=== PATIENT | male | born 1945 | race Caucasian/White ===

== ENCOUNTER 2019-10-26 08:03 | Outpatient (CLI) | payer OTHER, SELFPAY ==
--- NOTE | 2019-10-26 10:56 | PFTS_ITS ---
Date of Study:10/26/2019 Date of Dictation: MECHANICS: Forced vital capacity (FVC) is normal. Forced expiratory volume in one second (FEV1) is reduced. FEV1/FVC is reduced. FLOW VOLUME LOOP: Reduced flow at all lung volumes with scooping. LUNG VOLUMES: Not performed DIFFUSING CAPACITY FOR CARBON MONOXIDE: Not performed. INTERPRETATION: The pulmonary function tests are consistent with moderate airflow obstruction. There is no significant postbronchodilator response. MTDD
== END 2019-10-26 08:04 | disposition home or self-care (01) ==
PROVIDERS: Family Provider Family Medicine; Visit Provider Orthopaedic Surgery
DX: C34.90 Malignant neoplasm of unspecified part of unspecified bronchus or lung (principal); F17.210 Nicotine dependence, cigarettes, uncomplicated
CPT/HCPCS: 94060; J7611

== ENCOUNTER 2020-08-17 06:45 | Inpatient (IN) | payer OTHER, MEDICARE, SELFPAY ==
[2020-08-17] VITALS (12 sets, daily range): BP systolic 115–149; BP diastolic 61–91; PULSE 62–95; RESP 17–34; TEMP 36.3–38.9; O2SAT 90–97; BMI 24.6
--- NOTE | 2020-08-17 07:17 | XRR_ITS ---
PROCEDURE INFORMATION: Exam: XR Chest, 1 View Exam date and time: 08/17/2020 7:24 AM Age: 74 years old Clinical indication: Injury or trauma; Fall; Cough and shortness of breath; Blunt trauma (contusions or hematomas); Additional info: Dyspnea/cough TECHNIQUE: Imaging protocol: XR of the chest Views: 1 view. COMPARISON: No relevant prior studies available. FINDINGS: Lungs: Emphysematous change, interstitial disease, and mild airspace disease. Pleural space: Questionable small pleural effusions. Heart/Mediastinum: No cardiomegaly. Diaphragm: Asymmetric elevation of the right hemidiaphragm. Bones/joints: Osteopenia and degenerative change. XR/XR chest 1V portable [id number] IMPRESSION: Emphysematous change, interstitial disease, and mild airspace disease.
--- NOTE | 2020-08-17 07:20 | CT_ITS ---
WS: [id number] CT HEAD TECHNIQUE: Noncontrast CT of the head obtained from the skullbase to the vertex. CLINICAL INFORMATION: weakness COMPARISON: None. DLP: 733.[address] scans at [facility] use at least one of these dose optimization techniques: automat ed exposure control; mA and/or kV adjustment per patient size (includes targeted exams where dose is matched to clinical indication); or iterative reconstruction. FINDINGS: No evidence of intracranial hemorrhage or mass effect. Ventricular system and basal cisterns are goodwin nt. Mild small vessel changes with mild parenchymal volume loss. No extra-axial fluid collections. No evidence of mass or mass effect. Normal diggs-white differentiation. Paranasal sinuses and mastoid air cells are well aerated. .Normal visualized soft tissues. CT/CT head wo con* [id number] IMPRESSION: 1. No evidence of intracranial hemorrhage or mass effect. 2. Mild small vessel changes. Mild parenchymal volume loss. 3. No acute intracranial findings.
--- NOTE | 2020-08-17 07:22 | W.ED.FALL ---
HPI - Fall General: Chief Complaint: Fall Stated Complaint: Fall, Weakness Time Seen by Provider: 08/17/20 07:02 History of Present Illness: HPI Narrative: 74-year-old male presents to the emergency room after becoming ill overnight and progressively worsening to the point where this morning he was trying to get out of bed and was too weak his legs. He denies any difficulty speaking or swallowing. He denies any chest pain. No nausea vomiting or diarrhea. MD complaint: fall Onset (ago): hour(s) Fall from: standing Fall witnessed: no Place fall occurred: home Loss of consciousness: None Prolonged down time: yes Symptoms prior to fall: lightheadedness and dizziness Severity: mild Associated symptoms-after fall: Denies abdominal pain or chest pain Review of Systems Const: Denies: fever(s), chills, body aches, change in appetite, fatigue or malaise ENMT: Denies: throat pain, ear or mastoid pain, nasal discharge or nasal congestion Card: Denies: chest pain, edema, dyspnea on exertion or orthopnea Resp: Denies: dyspnea, productive cough or non-productive cough GI: Denies: abdominal pain, nausea, vomiting, hematemesis, coffee ground emesis, diarrhea, constipation, bloating, hematochezia or melena : Denies: flank pain, dysuria, urinary frequency or urinary urgency Skin/Breast: Denies: rash or pruritus [facility] PFSH: Medical History (Updated 08/17/20 @ 10:21 by Christiano Olivares DO) COPD (chronic obstructive pulmonary disease) Physical Exam Const: COMMON NORMALS: no acute distress GENERAL APPEARANCE: cooperative and comfortable ORIENTATION/CONSCIOUSNESS: Yes awake, Yes oriented to person, Yes oriented to place and Yes oriented to time Resp: AUSCULTATION: rhonchi, wheezes and diminished lung sounds Cardio: COMMON NORMALS: regular rate, regular rhythm and No murmurs present (Cardio) RATE: regular rate RHYTHM: regular rhythm Extremity: COMMON NORMALS: normal to inspection, capillary refill normal, no clubbing, cyanosis or edema and no calf tenderness Neuro: SENSORIUM/ORIENTATION: Yes oriented to person, Yes oriented to place and Yes oriented to time Skin: COMMON NORMALS: no rashes or lesions noted GENERAL SKIN EXAM: no rashes or lesions noted Course Vital Signs: Vital signs: Vital Signs Temperature 102.0 F H 08/17/20 06:52 Pulse Rate 95 08/17/20 06:52 Respiratory Rate 34 H 08/17/20 06:52 Blood Pressure 134/75 08/17/20 06:52 Pulse Oximetry 91 08/17/20 06:52 MDM - Fall MDM Narrative: Medical decision making narrative: Patient is Covid positive suspect he also has an underlying bacterial lung pneumonia we will treat with antibiotics as well as remdesivir and dexamethasone he is stable on supplemental oxygen [facility] Rapp orders written Lab Data: Labs: Lab Results 08/17/20 08/17/20 08/17/20 Range/Units 07:00 07:00 07:00 WBC 7.2 (4.0-10.0) 10^3/ uL RBC 3.90 L (4.1-5.3) 10^6/u L Hgb 13.1 (11.7-16.6) g/dL Hct 38.9 L (42.0-52.0) % MCV 99.7 H (80-94) fL MCH 33.6 (28.0-34.0) pg MCHC 33.7 (30.0-36.0) g/dL RDW 14.2 (12.1-15.1) % Plt Count 122 L (130-400) 10^3/c mm MPV 11.5 H (7.4-10.4) fL Neut % (Auto) 75.7 % Lymph % (Auto) 11.0 % [place] % (Auto) 12.2 % Eos % (Auto) 0.0 % Baso % (Auto) 0.3 % Neut # (Auto) 5.42 (1.8-7.7) 10^3/u L Lymph # (Auto) 0.8 (0.8-4.8) 10^3/u L [place] # (Auto) 0.9 (0.2-0.9) 10^3/u L Eos # (Auto) 0.0 (0.0-0.8) 10^3/u L Baso # (Auto) 0.0 (0.0-0.1) 10^3/u L Nucleated RBC % (a uto) 0 % Nucleated RBCs # 0.0 /100WBC D-Dimer 3.44 H (0-0.59) ug/mIFE U Specimen Type Sample Site ABG pH (7.35-7.45) ABG pCO2 (35-45) mmHg ABG pO2 (80.0-100.0) mmH g ABG HCO3 (22-26) mmol/L ABG O2 Saturation ABG Base Excess (-2.0-2.0) mmol/ L Bryon Test A-a O2 Gradient (5-10) mmHg Hematocrit (42-52) % Hgb O2 Saturation (95-100) % Carboxyhemoglobin (0.4-20.1) %THgb Methemoglobin (0.4-1.5) % Total Hemoglobin (14-18) g/dL Ionized Calcium (1.1-1.4) mmol/L O2 Delivery Device O2 Liters/Min % FiO2 % Liquor Grinding [employer] Operator ID Sodium 134 L (136-145) mmol/L Potassium 3.8 (3.5-5.1) mmol/L Chloride 100 (98-107) mmol/L Carbon Dioxide 22 (22-29) mmol/L Anion Gap 15.8 (5-19) BUN 16 (8-23) mg/dL Creatinine 1.3 H (0.7-1.2) mg/dL GFR Calculation Not Reportable Glucose 103 (65-115) mg/dL Calculated Osmolal ity 279 L (285-295) mOsm/k g Lactic Acid (0.5-2.2) mmol/L Calcium 8.5 (8.5-10.5) mg/dL Total Bilirubin 0.5 (0.15-1.2) mg/dL AST 19 (0-40) U/L ALT 11 (0-41) U/L Alkaline Phosphata se 66 (40-130) IU/L Creatine Kinase 88 (39-308) U/L C-Reactive Protein 116.9 H (0.0-4.9) mg/L Total Protein 6.9 (6.6-8.7) g/dL Albumin 3.6 (3.5-5.2) g/dL Globulin 3.3 (1.3-4.6) g/dL SARS-CoV-2 Ag (Rap id) (Negative) 08/17/20 08/17/20 08/17/20 Range/Units 07:00 07:18 08:27 WBC (4.0-10.0) 10^3/ uL RBC (4.1-5.3) 10^6/u L Hgb (11.7-16.6) g/dL Hct (42.0-52.0) % MCV (80-94) fL MCH (28.0-34.0) pg MCHC (30.0-36.0) g/dL RDW (12.1-15.1) % Plt Count (130-400) 10^3/c mm MPV (7.4-10.4) fL Neut % (Auto) % Lymph % (Auto) % [place] % (Auto) % Eos % (Auto) % Baso % (Auto) % Neut # (Auto) (1.8-7.7) 10^3/u L Lymph # (Auto) (0.8-4.8) 10^3/u L [place] # (Auto) (0.2-0.9) 10^3/u L Eos # (Auto) (0.0-0.8) 10^3/u L Baso # (Auto) (0.0-0.1) 10^3/u L Nucleated RBC % (a uto) % Nucleated RBCs # /100WBC D-Dimer (0-0.59) ug/mIFE U Specimen Type Arterial Sample Site Brachial, left ABG pH 7.48 H (7.35-7.45) ABG pCO2 33.5 L (35-45) mmHg ABG pO2 67.2 L (80.0-100.0) mmH g ABG HCO3 24.8 (22-26) mmol/L ABG O2 Saturation 95.2 ABG Base Excess 1.7 (-2.0-2.0) mmol/ L Bryon Test Pos A-a O2 Gradient 15.4 H (5-10) mmHg Hematocrit 38.3 L (42-52) % Hgb O2 Saturation 93.3 L (95-100) % Carboxyhemoglobin 1.4 (0.4-20.1) %THgb Methemoglobin 0.7 (0.4-1.5) % Total Hemoglobin 12.5 L (14-18) g/dL Ionized Calcium 1.2 (1.1-1.4) mmol/L O2 Delivery Device Nc O2 Liters/Min 3.0 % FiO2 32.0 % Liquor Grinding [employer] Operator ID [place] Sodium 135.0 (136-145) mmol/L Potassium 3.4 L (3.5-5.1) mmol/L Chloride (98-107) mmol/L Carbon Dioxide (22-29) mmol/L Anion Gap (5-19) BUN (8-23) mg/dL Creatinine (0.7-1.2) mg/dL GFR Calculation Glucose 94.0 (65-115) mg/dL Calculated Osmolal ity (285-295) mOsm/k g Lactic Acid 1.1 (0.5-2.2) mmol/L Calcium (8.5-10.5) mg/dL Total Bilirubin (0.15-1.2) mg/dL AST (0-40) U/L ALT (0-41) U/L Alkaline Phosphata se (40-130) IU/L Creatine Kinase (39-308) U/L C-Reactive Protein (0.0-4.9) mg/L Total Protein (6.6-8.7) g/dL Albumin (3.5-5.2) g/dL Globulin (1.3-4.6) g/dL SARS-CoV-2 Ag (Rap id) Positive H (Negative) Discharge Plan Discharge Patient Disposition: Admitted As Inpatient Clinical Impression: COVID-19, Bacterial pneumonia, Hypoxemia Condition: Stable Referrals: Kvng Mirza MD [Primary Care Provider] - Coding Level of Care Code ED Supervisor Packing for Trae San
[2020-08-17 07:52] LABS: Basophils % 0.3 %; Hematocrit 38.9 % (42.0-52.0); Hemoglobin 13.1 g/dL (11.7-16.6); Lymphocytes # 0.8 10^3/uL (0.8-4.8); Mean Corpuscular HGB Conc 33.7 g/dL (30.0-36.0); Mean Corpuscular Hemoglobin 33.6 pg (28.0-34.0); Mean Corpuscular Volume 99.7 fL (80-94); Mean Platelet Volume 11.5 fL (7.4-10.4); Monocytes # 0.9 10^3/uL (0.2-0.9); Monocytes % 12.2 %; Neutrophils # 5.42 10^3/uL (1.8-7.7); Neutrophils % 75.7 %; Nucleated Red Blood Cells % 0 %; Platelet Count 122 10^3/cmm (130-400); Red Cell Distribution Width 14.2 % (12.1-15.1); White Blood Count 7.2 10^3/uL (4.0-10.0)
[2020-08-17 08:03] LABS: Alanine Aminotransferase 11 U/L (0-41); Albumin Level 3.6 g/dL (3.5-5.2); Alkaline Phosphatase 66 IU/L (40-130); Blood Urea Nitrogen 16 mg/dL (8-23); C Reactive Protein 116.9 mg/L (0.0-4.9); Calcium 8.5 mg/dL (8.5-10.5); Carbon Dioxide 22 mmol/L (22-29); Chloride 100 mmol/L (98-107); Creatine Phosphokinase 88 U/L (39-308); Globulin 3.3 g/dL (1.3-4.6); Glucose 103 mg/dL (65-115); Osmolality Calculated 279 mOsm/kg (285-295); Sodium 134 mmol/L (136-145); Total Bilirubin 0.5 mg/dL (0.15-1.2); Total Protein 6.9 g/dL (6.6-8.7)
[2020-08-17] MEDS: sodium chloride 0.9% 500 ML 999 ML IV (08:03)
[2020-08-17 08:04] LABS: D Dimer 3.44 ug/mIFEU (0-0.59); Lactic Sepsis W/Reflex 1.1 mmol/L (0.5-2.2)
[2020-08-17 08:06] LABS: Anion Gap 15.8 (5-19); Aspartate Amino Transferase 19 U/L (0-40); Potassium 3.8 mmol/L (3.5-5.1)
[2020-08-17 08:40] LABS: ABG PCO2 33.5 mmHg (35-45); ABG PH Result 7.48 (7.35-7.45); Alveolar-Arterial Oxygen Gradi 15.4 mmHg (5-10); Arterial Blood Gas Hematocrit 38.3 % (42-52); Base Excess ABG 1.7 mmol/L (-2.0-2.0); Blood Gas Allen Test Pos; Blood Gas Operator Identificat MONRO; Blood Gas Sample Site Brachial, left; Blood Gas Sample Type Arterial; Carboxyhemoglobin 1.4 %THgb (0.4-20.1); HCO3 ABG 24.8 mmol/L (22-26); HGB O2 Sat 93.3 % (95-100); Ionized Calcium Level - ABG 1.2 mmol/L (1.1-1.4); Methemoglobin 0.7 % (0.4-1.5); Oxygen Device NC; Oxygen Saturation ABG 95.2; PO2 ABG 67.2 mmHg (80.0-100.0); Potassium Level - ABG 3.4 mmol/L (3.5-5.0); Total Hemoglobin 12.5 g/dL (14-18)
[2020-08-17 08:49] LABS: SARS Covid-2 Antigen Positive (Negative)
--- NOTE | 2020-08-17 08:50 | CT_ITS ---
WS: [id number] CTA OF THE CHEST WITH PULMONARY EMBOLISM PROTOCOL TECHNIQUE: High-resolution contrast enhanced CTA of the chest with coronal and sagittal reformatted i mages with pulmonary embolism protocol. MIP images are also reviewed. CLINICAL INFORMATION: elevated D dimer COMPARISON: None. DLP: 564.[address] scans at [facility] use at least one of these dose optimization techniques: automat ed exposure control; mA and/or kV adjustment per patient size (includes targeted exams where dose is matched to clinical indication); or iterative reconstruction. FINDINGS: Proximal main pulmonary arteries are normal. Normal segmental and subsegmental pulmonary arteries. No evidence of pulmonary embolus. Normal caliber thoracic aorta. No mediastinal or hilar lymphadenopath y. No axillary lymphadenopathy. Moderate chronic emphysematous changes. Slightly nodular opacity in the right upper lobe measuring 8 mm. Subsegmental atelectasis in the lower lobes. Partial airspace consolidation left lower lobe poste riorly. Recommend correlation for pneumonia. Mild thoracic kyphosis. Adrenal glands are normal. CT/CT angio chest PE protcl [id number] IMPRESSION: 1. No evidence of pulmonary embolus. 2. Partial airspace consolidation left lower lobe consistent with pneumonia 3. Advanced chronic emphysematous changes. 4. Nodular opacity right upper lobe laterally measuring 8mm. Recommend 3-6 mon th interval follow-up chest CT.
[2020-08-17] MEDS: iodixanol 320 mg/mL 100mL Btl IV (09:15)
[2020-08-17] MEDS: levofloxacin-dextrose 5 % 750 MG/150 ML PREMIX 100 MG IV (09:22)
[2020-08-17] MEDS: dexamethasone 4 mg/mL INJ 6 MG IVP (09:23)
[2020-08-17] MEDS: remdesivir 200 MG in sodium chloride 0.9% (100 ml) 100 ML 100 MG IV (09:24)
[2020-08-17 11:19] LABS: Urine Appearance Hazy (CLEAR); Urine Color Dark Yellow (Yellow); pH Urine 5 (5-7)
[2020-08-17 11:20] LABS: Add Urine Microscopic? YES; Bilirubin Urine 1+ (Negative); Blood Urine 3+ (Negative); Glucose Urine UA Norm (Normal); Ketones Urine 1+ (Negative); Leukocyte Esterase Urine Negative (Negative); Nitrate Urine Negative (Negative); Protein Urine 1+ (Negative); Urobilinogen Urine 1 mg/dL (Negative)
[2020-08-17 11:21] LABS: Add Urine Culture? No; Amorphous Sediment Urine 2+ /hpf; Bacteria Urine TRACE /hpf; Mucus Urine 1+ /hpf; RBC Urine 0-4 /hpf (0-2)
--- NOTE | 2020-08-17 16:19 | PM.HP ---
Providers/Chief Complaint Admitting Physician: Mat Knutson MD Primary Care Provider: Kvng Mirza MD Chief Complaint: Fall, Weakness History of Present Illness Will Loza is a 74 year old male who presented to the emergency department with severe weakness. He had been coughing some. He denied any shortness of breath but was hypoxic on presentation to the ER. He had had no vomiting or diarrhea. He reports he feels very good on the oxygen. He had had some chills at home but not not any documented fever. Fever was noted in the ER of 102 ?F. During my interview patient seems to be a poor historian and may have some early dementia Review of Systems General: Reports: 10 or more systems reviewed and unremarkable except in HPI and below Const: Reports: fever(s) and body aches Eyes: Denies: change in vision ENMT: Denies: throat pain Card: Denies: chest pain Resp: Reports: dyspnea and non-productive cough GI: Denies: abdominal pain : Denies: flank pain Musc: Denies: neck pain Skin/Breast: Denies: rash Neuro: Denies: headache(s) Psych: Denies: anxiety Endo: Denies: polyuria Young/Lymph: Denies: easy bruising All/Imm: Denies: urticaria Medications/Allergies Home Medications Medication Instructions Recorded Confirmed Last Taken Type apixaban [Eliquis] 5 mg PO BID@08/17/20 08/17/20 08/16/20 History budesonide-formoterol [Symbicort] 2 puff INHALATION BID@08/17/20 08/17/20 08/16/20 History folic acid 1 mg PO DAILY@08/17/20 08/17/20 08/16/20 History methotrexate sodium 25 mg IM Q7D 08/17/20 08/17/20 Unknown History propranolol 20 mg PO BID@08/17/20 08/17/20 08/16/20 History tiotropium bromide [Spiriva 2 puff INHALATION DAILY@08/17/20 08/17/20 08/16/20 History Respimat] vitamins A,C,[id number]-rqtu-ynhrdi 1 cap PO DAILY@08/17/20 08/17/20 08/16/20 History [Vision Formula (S-V-I-Zn-kasia)] Allergies Allergy/AdvReac Type Severity Reaction Status Date / Time No Known Allergies Allergy Unverified 08/17/20 12:43 PFSH Acute PFSH: Medical History (Updated 08/17/20 @ 16:25 by Mat Knutson MD) Anticoagulation adequate COPD (chronic obstructive pulmonary disease) Hypertension Rheumatoid arthritis Family History (Updated 08/17/20 @ 16:25 by Mat Knutson MD) Other CAD (coronary artery disease) Social History (Updated 08/17/20 @ 16:25 by Mat Knutson MD) Smoking and tobacco status: former smoker Alcohol intake: never Supplemental PFSH Information: Denies any personal history of coronary disease, stroke. Vitals/I&O/Wt Last Vital Signs Temp 102.0 F H 08/17/20 06:52 Pulse 75 08/17/20 11:18 Resp 20 H 08/17/20 11:18 BP 118/61 08/17/20 11:18 Pulse Ox 96 08/17/20 11:18 Weight last 48 hrs Weight 73.482 kg Physical Exam Narrative: EXAM NARRATIVE: General exam is a white male in no apparent distress HEENT: Pupils equally round. Oropharynx clear. Neck is supple no lymphadenopathy or thyromegaly Cardiovascular regular rate and rhythm without murmur, no S3 or S4 Lungs few coarse breath sounds bilaterally. No wheezing. Abdomen is soft, positive bowel sounds. No obvious organomegaly was deferred Extremities no cyanosis clubbing or edema, cap refill brisk Skin no rash Neuro no focal deficits. Some memory deficits suggesting possibly early dementia. Data : 08/17/20 07:00 08/17/20 07:00 Micro: Microbiology 08/17/20 11:14 Blood Culture - Preliminary Blood SPECIMEN COLLECTED 08/17/20 09:10 Blood Culture - Preliminary Blood SPECIMEN COLLECTED Other data: Dimer 3.44 ABG demonstrates pH 7.48, PCO2 33, PO2 67 this was on 3 L per nasal cannula LFTs are normal. CRP 116. CK 88. Urinalysis demonstrates 0-4 reds, negative leukocyte Estrace. Rapid Covid is positive CTA demonstrates no pulmonary embolism, emphysema, nodular opacity right upper lobe that will require follow-up in 3 to 6 months, consolidation left base Head CT negative Chest x-ray bibasilar infiltrate reviewed by me, COPD A&P Assessment and plan (1) COVID-19: Remdesivir Dexamethasone Combivent Incentive spirometry Check inflammatory markers tomorrow Status: Acute (2) Bacterial pneumonia: We will continue Levaquin Status: Acute (3) Hypoxemia: Oxygen as needed Status: Acute (4) COPD (chronic obstructive pulmonary disease): Pulmonary toilet. No evidence of exacerbation currently Status: Acute Additional A&P Information On anticoagulation with Eliquis. Presumably for DVT or A. fib in the past. Will check EKG. Will investigate with family History of rheumatoid arthritis. Hold methotrexate Full code Eliquis will suffice for DVT prophylaxis Attestations Medical Necessity Statement*: Will need greater than 2 midnight stay for evaluation and treatment of pneumonia, Covid Time Spent in Patient Care: Greater than 35 minutes Coding Level of Care Code Acute Implementation Director for Chg Fwd Diagnoses COVID-19 U07.1 Bacterial pneumonia J15.9 Hypoxemia R09.02 COPD (chronic obstructive pulmonary disease) J44.9
[2020-08-17] MEDS: D5-NS 0.45% + KCL 20 mEq 20 MEQ/1,000 ML BAG 75 MEQ IV (17:57)
[2020-08-17] MEDS: apixaban 5 mg Tablet PO (21:34)
[2020-08-17] MEDS: propranolol 20 mg Tablet PO (21:34)
[2020-08-18] VITALS (15 sets, daily range): BP systolic 118–169; BP diastolic 72–87; PULSE 50–92; RESP 16–24; TEMP 36.4–36.5; O2SAT 96–99
[2020-08-18 06:05] LABS: Hematocrit 37.6 % (42.0-52.0); Hemoglobin 12.5 g/dL (11.7-16.6); Lymphocytes # 0.8 10^3/uL (0.8-4.8); Lymphocytes % 10.8 %; Mean Corpuscular HGB Conc 33.2 g/dL (30.0-36.0); Mean Corpuscular Hemoglobin 33.2 pg (28.0-34.0); Mean Platelet Volume 10.5 fL (7.4-10.4); Monocytes # 0.5 10^3/uL (0.2-0.9); Monocytes % 7.3 %; Neutrophils # 6.04 10^3/uL (1.8-7.7); Neutrophils % 81.6 %; Nucleated Red Blood Cells % 0 %; Platelet Count 130 10^3/cmm (130-400); Red Blood Count 3.76 10^6/uL (4.1-5.3); White Blood Count 7.4 10^3/uL (4.0-10.0)
[2020-08-18 06:28] LABS: Alanine Aminotransferase 13 U/L (0-41); Albumin Level 3.4 g/dL (3.5-5.2); Alkaline Phosphatase 63 IU/L (40-130); Anion Gap 11.4 (5-19); Aspartate Amino Transferase 23 U/L (0-40); Blood Urea Nitrogen 18 mg/dL (8-23); Calcium 8.6 mg/dL (8.5-10.5); Carbon Dioxide 28 mmol/L (22-29); Chloride 103 mmol/L (98-107); Globulin 2.6 g/dL (1.3-4.6); Glucose 140 mg/dL (65-115); Osmolality Calculated 290 mOsm/kg (285-295); Potassium 4.4 mmol/L (3.5-5.1); Sodium 138 mmol/L (136-145); Total Bilirubin 0.2 mg/dL (0.15-1.2)
[2020-08-18 06:35] LABS: C Reactive Protein 117.2 mg/L (0.0-4.9); Magnesium 2.2 mg/dL (1.7-2.3); Thyroid Stimulating Hormone 1.43 uIU/mL (0.27-4.20)
[2020-08-18 06:46] LABS: D Dimer 2.96 ug/mIFEU (0-0.59)
[2020-08-18] MEDS: D5-NS 0.45% + KCL 20 mEq 20 MEQ/1,000 ML BAG 75 MEQ IV (07:25)
[2020-08-18 07:32] LABS: Ferritin 1061 ng/mL (30-400)
[2020-08-18] MEDS: remdesivir 100 MG in sodium chloride 0.9% (100 ml) 100 ML IV (08:27)
[2020-08-18] MEDS: apixaban 5 mg Tablet PO ×2 (08:28→22:43)
[2020-08-18] MEDS: folic acid 1 mg Tablet PO (08:28)
[2020-08-18] MEDS: dexamethasone 4 mg/mL INJ 6 MG IVP (08:28)
[2020-08-18] MEDS: levofloxacin-dextrose 5 % 750 MG/150 ML PREMIX 100 MG IV (10:23)
[2020-08-18] MEDS: propranolol 20 mg Tablet PO ×2 (10:23→22:43)
--- NOTE | 2020-08-18 10:47 | PC.CHAP ---
Pastoral Care Encounter/Spiritual Assessment Type of Contact [] Declined check airman visit [] Patient/Family/Request visit [] Outpatient visit [] Follow-up visit [] Physician referral [] Code/Alert [] Routine visit [] Staff referral [] Actively dying [] Patient sleeping [] Family support [] [] Out of room [] Palliative care [] [] Receiving care in room [] Pre-surgical visit [] Trauma [] Long length of stay [] ICU visit [x] Other: [facility] Relational/Emotional Strength [] Patient feels connected with others/family/visitors/staff [] Distress [] Loneliness/isolation [] Abandonment Spirituality of Patient [] Person of Becca [] Attends Jain of their [place] [] Believes in Prayer [] Reads Bible or Christian materials [] There are Spiritual issues to be addressed Town Justice Interventions [] Prayer [] Active listening [] Non-anxious presence [] Spiritual/emotional support [] Crisis/trauma care [] Spiritual counseling [] Bereavement support [] Provided bereavement packet [] Provided Bible/devotional materials [] Provided toy/stuffed animal, coloring book to patient or family member [] Provided Communion [] Anointing/[place] [] Salvation [] Completed spiritual assessment [] Other: Impact on Illness or Injury [] Angry [] Fearful [] Anxious [] Often cries [] Exhaustion [] Unable to work [] Unable to attend pentecostalism [] Unable to walk/stand [] Unable to read [] Unable to drive [] Unable to eat/drink [] Unable to sleep [] Unable to be with family [] Patient intubated [] Other: Summary [facility] Time spent with patient 5 mins
--- NOTE | 2020-08-18 14:15 | P.PN_ITS ---
Subjective Subjective: Interval history: Will reports he feels fine. He has kept his oxygen on. He denies any confusion currently. He reports his weakness is much improved. Medications: Reviewed: Yes Vitals/I&O/Wt Last Vital Signs Temp 97.6 F 08/18/20 11:15 Pulse 74 08/18/20 11:33 Resp 18 08/18/20 11:31 BP 168/77 08/18/20 11:15 Pulse Ox 98 08/18/20 11:31 08/17/20 08/18/20 08/18/20 22:59 06:59 14:59 Intake Total 1430 / 1430 240 / 1670 1600 / 1600 Output Total 700 / 700 400 / 1100 300 / 300 Balance 730 / 730 -160 / 570 1300 / 1300 Weight last 48 hrs Weight 73.482 kg Physical Exam Narrative: EXAM NARRATIVE: General exam is a white male in no apparent distress. Quick and appropriate responses are noted. Neck is supple no lymphadenopathy or thyromegaly Cardiovascular regular rate and rhythm without murmur, no S3 or S4 Lungs few coarse breath sounds bilaterally. No wheezing. Abdomen is soft, positive bowel sounds. No obvious organomegaly Extremities no cyanosis clubbing or edema, cap refill brisk Data : 08/18/20 05:39 08/18/20 05:39 Micro: Microbiology 08/17/20 11:14 Blood Culture - Preliminary Blood NEGATIVE TO DATE 08/17/20 09:10 Blood Culture - Preliminary Blood NEGATIVE TO DATE 08/17/20 18:25 Gram Stain - Final Sputum - Expectorated Sputum A&P Assessment and plan (1) COVID-19: Continue remdesivir and dexamethasone Combivent Incentive spirometry Dimer slightly improved Status: Acute (2) Bacterial pneumonia: Continue Levaquin Status: Acute (3) Hypoxemia: Oxygen as needed Status: Acute (4) COPD (chronic obstructive pulmonary disease): Pulmonary toilet. No evidence of exacerbation currently Status: Acute Additional A&P Information On anticoagulation with Eliquis. Presumably for DVT or A. fib in the past. Will check EKG. Will investigate with family History of rheumatoid arthritis. Hold methotrexate Full code Eliquis will suffice for DVT prophylaxis Discontinue IV fluids Possible discharge as early as tomorrow if improving. Attestations Medical Necessity Statement*: Needs continued hospitalization for COVID-19 pneumonia for antiviral and steroid treatment as well as support with oxygen. Coding Level of Care Code Acute Major Donor Coordinator for Chg Fwd Diagnoses COVID-19 U07.1 Bacterial pneumonia J15.9 Hypoxemia R09.02 COPD (chronic obstructive pulmonary disease) J44.9
--- NOTE | 2020-08-18 14:18 | ECG_ITS ---
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 [email or web address] Companype[facility] hospitalDiassesscleveland clinic mercy hospitalIdea Shower/store/OM/[id number]
--- NOTE | 2020-08-18 15:54 | PC.NURSE ---
called patient's and gave her update and [facility] hotline number [phone]
[2020-08-19] VITALS (9 sets, daily range): BP systolic 150–164; BP diastolic 83–89; PULSE 50–73; RESP 16–18; TEMP 36.4–36.6; O2SAT 88–98
[2020-08-19] MEDS: remdesivir 100 MG in sodium chloride 0.9% (100 ml) 100 ML IV (05:05)
[2020-08-19 05:13] LABS: Basophils % 0.1 %; Hematocrit 43.2 % (42.0-52.0); Hemoglobin 14.1 g/dL (11.7-16.6); Lymphocytes # 1.2 10^3/uL (0.8-4.8); Lymphocytes % 9.6 %; Mean Corpuscular HGB Conc 32.6 g/dL (30.0-36.0); Mean Corpuscular Hemoglobin 32.9 pg (28.0-34.0); Mean Corpuscular Volume 100.9 fL (80-94); Mean Platelet Volume 10.5 fL (7.4-10.4); Monocytes # 0.8 10^3/uL (0.2-0.9); Monocytes % 6.5 %; Neutrophils # 10.24 10^3/uL (1.8-7.7); Neutrophils % 83.6 %; Nucleated Red Blood Cells % 0 %; Platelet Count 149 10^3/cmm (130-400); Red Blood Count 4.28 10^6/uL (4.1-5.3); Red Cell Distribution Width 14.3 % (12.1-15.1); White Blood Count 12.2 10^3/uL (4.0-10.0)
[2020-08-19 05:49] LABS: Alanine Aminotransferase 16 U/L (0-41); Albumin Level 3.7 g/dL (3.5-5.2); Alkaline Phosphatase 70 IU/L (40-130); Anion Gap 13.9 (5-19); Aspartate Amino Transferase 32 U/L (0-40); Blood Urea Nitrogen 17 mg/dL (8-23); Calcium 9.2 mg/dL (8.5-10.5); Carbon Dioxide 28 mmol/L (22-29); Chloride 103 mmol/L (98-107); Globulin 3.3 g/dL (1.3-4.6); Glucose 116 mg/dL (65-115); Osmolality Calculated 293 mOsm/kg (285-295); Potassium 4.9 mmol/L (3.5-5.1); Sodium 140 mmol/L (136-145); Total Bilirubin 0.2 mg/dL (0.15-1.2)
[2020-08-19] MEDS: apixaban 5 mg Tablet PO (09:12)
[2020-08-19] MEDS: propranolol 20 mg Tablet PO (09:12)
[2020-08-19] MEDS: folic acid 1 mg Tablet PO (09:12)
[2020-08-19] MEDS: levofloxacin-dextrose 5 % 750 MG/150 ML PREMIX 100 MG IV (09:12)
[2020-08-19] MEDS: dexamethasone 4 mg/mL INJ 6 MG IVP (09:13)
--- NOTE | 2020-08-19 10:40 | PC.NURSE ---
Rcvd verbal order from Dr Bonner for Home O2 Eval. Wool Classer put order in.
--- NOTE | 2020-08-19 11:15 | P.DS_ITS ---
Discharge Providers Date of Admission: 08/17/20 15:13 Date of Discharge: August 19, 2020 Attending Provider at Admission: Mat Knutson MD Attending Provider at Discharge: Cesar Bonner MD Primary Care Provider: Kvng Mirza MD Diagnoses at Discharge Discharge Diagnosis (1) COVID-19: Status: Acute (2) Bacterial pneumonia: Status: Acute (3) Hypoxemia: Status: Acute (4) COPD (chronic obstructive pulmonary disease): Status: Acute Reason for Visit Reason for Visit: Fall, Weakness Hospital Course Hospital Course This is a 74-year-old male with a past medical history of COPD, rheumatoid arthritis, chronic anticoagulation on Eliquis for DVT in the past who presents to [facility] for weakness, coughing Patient was admitted to [facility] for acute hypoxic respiratory failure secondary to COVID-19 pneumonia, secondary bacterial pneumonia, admitted to the general medical floors COVID-19 unit, received Decadron, remdesivir, Levaquin, inhaler therapy, oxygen therapy, clinically monitored. Patient clinically improved, remained afebrile, ambulating without significant symptomatology, down to 2 L. Into day 3 of admission, patient was adamant about going home, advised of the risk and benefits, voiced understanding, all questions answered, wanted to go home. Patient will be discharged on 2 remaining days of Levaquin, a prednisone burst, albuterol, home inhalers, with close follow-up with primary care as outpatient Patient also had a 8 mm pulmonary nodule in the right upper lobe, should follow- up with pulmonary in 3 months Physical Exam Const: COMMON NORMALS: no acute distress and patient oriented x3 HENMT: COMMON NORMALS: normocephalic HEAD & SCALP: normocephalic Neck/C-Spine: COMMON NORMALS: no JVD Resp: COMMON NORMALS: normal respiratory effort, No retractions, No use of accessory muscles and clear to auscultation bilaterally AUSCULTATION: clear to auscultation bilaterally Cardio: COMMON NORMALS: no JVD, regular rate, regular rhythm, S1 normal heart sound present and S2 normal heart sound present RATE: regular rate RHYTHM: regular rhythm HEART SOUNDS: S1 normal heart sound present and S2 normal heart sound present GI: COMMON NORMALS: Normal to inspection, nondistended, normoactive bowel sounds present, Soft to palpation, non-tender, No hepatosplenomegaly present, no masses and no bruits PALPATION: Yes Soft to palpation and Yes No hepatosplenomegaly present Extremity: COMMON NORMALS: capillary refill normal, no clubbing, cyanosis or edema, no calf tenderness and no pedal edema Neuro: COMMON NORMALS: patient oriented x3 Psych: COMMON NORMALS: mental status grossly normal Discharge Data Data Completed and Pending: Completed Studies During Hospitalization Category Date Time Status CT angio chest PE protcl [id number] Stat Cat Scan 08/17/20 08:[address] head wo con* 7 [id number] Stat Cat Scan 08/17/20 07:20 Completed XR chest 1V kyra ble [id number] Stat Exams 08/17/20 07:17 Completed Pending at discharge Category Date Time Status Blood Culture Sta t Lab 08/17/20 11:14 Results Sputum Culture an d Gram Stain Routi ne Lab 08/18/20 00:58 Results Sputum Culture an d Gram Stain Stat Lab 08/17/20 07:17 Uncollected Labs from last 24 hours 08/19/20 08/19/20 05:00 05:00 WBC 12.2 H RBC 4.28 Hgb 14.1 Hct 43.2 MCV 100.9 H MCH 32.9 MCHC 32.6 RDW 14.3 Plt Count 149 MPV 10.5 H Neut % (Auto) 83.6 Lymph % (Auto) 9.6 [place] % (Auto) 6.5 Eos % (Auto) 0.0 Baso % (Auto) 0.1 Neut # (Auto) 10.24 H Lymph # (Auto) 1.2 [place] # (Auto) 0.8 Eos # (Auto) 0.0 Baso # (Auto) 0.0 Nucleated RBC % (a uto) 0 Nucleated RBCs # 0.0 Sodium 140 Potassium 4.9 Chloride 103 Carbon Dioxide 28 Anion Gap 13.9 BUN 17 Creatinine 1.0 GFR Calculation Not Reportable Glucose 116 H Calculated Osmolal ity 293 Calcium 9.2 Total Bilirubin 0.2 AST 32 ALT 16 Alkaline Phosphata se 70 Total Protein 7.0 Albumin 3.7 Globulin 3.3 Vitals: Last Vital Signs Temp 97.9 F 08/19/20 11:14 Pulse 63 08/19/20 11:14 Resp 16 08/19/20 11:14 BP 150/87 08/19/20 11:14 Pulse Ox 98 08/19/20 11:14 Discharge Plan Discharge Patient Disposition: Home Condition: Stable Prescriptions: New levofloxacin 750 mg tablet 750 mg PO DAILY 3 Days Qty: 3 RF: 0 prednisone 20 mg tablet 20 mg PO BID 5 Days Qty: 10 RF: 0 albuterol sulfate 90 mcg/actuation HFA aerosol inhaler 1 inh inhalation Q6H PRN (Reason: shortness of breath or wheezing) Qty: 18 RF: 0 Continued folic acid 1 mg Tablet 1 mg PO DAILY@ RF: 0 propranolol 20 mg Tablet 20 mg PO BID@, RF: 0 Vision Formula (K-L-H-Zn-kasia) [id number]-oj-[id number] Capsule 1 cap PO DAILY@ RF: 0 Symbicort 160-4.5 mcg/actuation Hfa Aerosol Inhaler 2 puff INHALATION BID@ RF: 0 Spiriva Respimat 2.5 mcg/actuation Mist 2 puff INHALATION DAILY@ RF: 0 Eliquis 5 mg Tablet 5 mg PO BID@ RF: 0 Held methotrexate sodium 25 mg/mL Solution 25 mg IM Q7D RF: 0 Hold Instructions: Resume on 09/09/20. Hold until you see your camera repairman Discharge Orders: Discharge Order (Routine); Ordered 08/19/20 Ordered By: Cesar Bonner Referrals: Kvng Mirza MD [Primary Care Provider] - Chiki Lei MD [Physician] - 3 months (lung nodule) Discharge Diet: Cardiac Discharge Activity: Resume usual activity Activity Restrictions/Additional Instructions: -Please drink plenty of electrolyte balance fluids -Please self isolate for 2 weeks, socially distance, hand wash, face mask -Please use Levaquin and prednisone as prescribed -Advair and Spiriva, albuterol -If you have worsening fevers, shortness of breath come back to the emergency room -Please hold methotrexate until you see your camera repairman Discharge Attestations Time Spent in Discharge Care*: greater than 30 min Quality Metrics Clinical Quality Measures During this hospital stay, did patient experience: None Coding Level of Care Code Acute Nanny Caregiver for [facility] Fwd Diagnoses COVID-19 U07.1 Bacterial pneumonia J15.9 Hypoxemia R09.02 COPD (chronic obstructive pulmonary disease) J44.9
--- NOTE | 2020-08-19 14:09 | PC.NURSE ---
notified patient's that patient is being discharged and has his oxygen. patient given discharge instructions and verbalized understanding of instructions. patient's iv discontinued and covered with 2x2 and tape.
--- NOTE | 2020-08-19 14:37 | PC.NURSE ---
discharge instructions given to patient and patient verbalized understanding. patient's iv removed and covered with 2x2 and coban. patient taken to private vehicle via wheelchair by staff. patient provided with pulse ox.
--- NOTE | 2020-08-22 13:20 | PC.RESP ---
Pulmonary Rehab information sent to patient.
== END 2020-08-19 14:40 | disposition home or self-care (01) | DRG 177 ==
LOC: ER 10:21 → ER IP 15:14 → MEDSURG 15:56
PROVIDERS: Admitting Provider Internal Medicine; Emergency Provider Family Medicine; PCP Family Medicine; Visit Provider Family Medicine
DX: U07.1 COVID-19 (principal); J12.89 Other viral pneumonia; J15.9 Unspecified bacterial pneumonia; J96.01 Acute respiratory failure with hypoxia; F03.90 Unspecified dementia, unspecified severity, without behavioral disturbance, psychotic disturbance, mood disturbance, and anxiety; J44.9 Chronic obstructive pulmonary disease, unspecified; I10 Essential (primary) hypertension; M06.9 Rheumatoid arthritis, unspecified; Z87.891 Personal history of nicotine dependence; Z79.01 Long term (current) use of anticoagulants; Z86.718 Personal history of other venous thrombosis and embolism; Z79.52 Long term (current) use of systemic steroids; R91.8 Other nonspecific abnormal finding of lung field
CPT/HCPCS: 12345; 36415; 36600; 70450; 71045; 71275; 80051; 80053; 81001; 82330; 82550; 82728; 82805; 83605; 83735; 84443; 85025; 85378; 86140; 87040; 87070; 87205; 87426; 93005; 94640; 99283; J1100; J1956; J3535; J7040; Q9967

== ENCOUNTER 2020-09-17 10:18 | Emergency (ER) | payer OTHER, SELFPAY ==
[2020-09-17 10:27] VITALS: BP 161/94; PULSE 88; RESP 24; TEMP 36.3; O2SAT 97; BMI 22.4
--- NOTE | 2020-09-17 10:35 | ECG_ITS ---
[facility] Test Date: 2020-09-17 Pat Name: Will Loza Department: Room: Gender: Male Addiction Professional: : 1945 Requested By: Christiano Huerta Order Number: [id number] Jerel MD: Sadi Bob M.D. Measurements Intervals [place] Rate: 82 P: 33 MN: 163 QRS: 39 QRSD: 97 T: 36 QT: 387 QTc: 453 Interpretive Statements SINUS RHYTHM WITH OCCASIONAL VENTRICULAR PREMATURE COMPLEXES Compared to ECG 08/18/2020 15:39:07 Ventricular premature complex(es) now present Myocardial infarct finding no longer present Electronically Signed On 09-17-2020 15:28:54 DIRECTOR SURGICAL by Sadi Bob M.D. [id number]
--- NOTE | 2020-09-17 10:36 | XRR_ITS ---
PROCEDURE INFORMATION: Exam: XR Chest, 1 View Exam date and time: 09/17/2020 10:37 AM Age: 74 years old Clinical indication: Shortness of breath; Dyspnea/cough TECHNIQUE: Imaging protocol: XR of the chest Views: 1 view. COMPARISON: CR XR chest 1V portable [id number] 08/17/2020 7:23 AM FINDINGS: Lungs: There is emphysema. There is increased airspace disease in the left lung which could be due to pneumonia. Pleural spaces: No pleural effusion or pneumothorax. Heart/Mediastinum: The cardiac silhouette is not enlarged. The mediastinal contours are normal. Bones/joints: No acute osseous abnormality. XR/XR chest 1V portable [id number] IMPRESSION: 1. Emphysema. 2. Increased left-sided airspace disease which could be due to pneumonia.
--- NOTE | 2020-09-17 10:41 | W.ED.ABDPA2 ---
HPI - Abdominal Pain General: Chief Complaint: Abdominal Pain Stated Complaint: ABD PAIN, SOB Time Seen by Provider: 09/17/20 10:23 History of Present Illness: HPI narrative: 74-year-old male comes in complaining of lower quadrant abdominal pain for the last couple of days. She not had any fever sweats or chills he has had some vomiting he denies any diarrhea. No hematochezia melena hematemesis coffee-ground emesis. He denies any dysuria urgency or frequency or hematuria. No chest pain no shortness of breath. He states he has not had much for bowel movements the last couple of days. MD elicited complaint: abdominal pain Onset (ago): day(s) Pain Consistency: intermittent Location: LLQ Severity: severe Quality: cramping and stabbing Exacerbating factors: nothing Relieving factors: nothing Associated Symptoms: Reports GI cramping, nausea, poor appetite and vomiting; Denies anorexia, belching, bloating, change in bowel habits, change in stool character, chills, coffee ground emesis, constipation, diarrhea, dyspepsia, dysuria, excessive flatus, fever(s), heartburn, hematochezia, hematuria, hematemesis, fecal incontinence, loose stools, melena and syncope Review of Systems Const: Denies: fever(s) or chills ENMT: Denies: throat pain, ear or mastoid pain, nasal discharge or nasal congestion Card: Denies: syncope Resp: Denies: dyspnea, productive cough or non-productive cough GI: Reports: nausea, vomiting and GI cramping; Denies: coffee ground emesis, heartburn, diarrhea, constipation, bloating, belching, excessive flatus, fecal incontinence, change in bowel habits, change in stool character, hematochezia or melena : Denies: dysuria or hematuria Skin/Breast: Denies: rash or pruritus PFSH ED PFSH: Medical History Anticoagulation adequate COPD (chronic obstructive pulmonary disease) CVA (cerebral vascular accident) Hypertension Recurrent deep vein thrombosis (DVT) Rheumatoid arthritis Family History Other CAD (coronary artery disease) Social History Smoking and tobacco status: former smoker Alcohol intake: never Physical Exam Const: COMMON NORMALS: no acute distress GENERAL APPEARANCE: cooperative and comfortable ORIENTATION/CONSCIOUSNESS: Yes awake, Yes oriented to person, Yes oriented to place and Yes oriented to time HENMT: COMMON NORMALS: normocephalic, atraumatic and hearing grossly normal bilaterally HEAD & SCALP: normocephalic and atraumatic Eye: COMMON NORMALS: Equal, round and reactive pupils present, EOMs intact bilaterally, conjunctivae normal and no scleral icterus CONJUNCTIVA: Yes conjunctivae normal PUPIL: Yes Equal, round and reactive pupils present Neck/C-Spine: COMMON NORMALS: full ROM, no lymphadenopathy, supple and no JVD Lymph: LYMPHATIC: no lymphadenopathy noted and no lymphedema noted Resp: COMMON NORMALS: normal respiratory effort, No retractions, No use of accessory muscles and clear to auscultation bilaterally AUSCULTATION: clear to auscultation bilaterally Cardio: COMMON NORMALS: no JVD, regular rate, regular rhythm and No murmurs present (Cardio) RATE: regular rate RHYTHM: regular rhythm GI: COMMON NORMALS: Soft to palpation and No hepatosplenomegaly present AUSCULTATION: Yes normoactive bowel sounds PALPATION: Yes Soft to palpation, Yes Tenderness to palpation present (GI) Details: LLQ, No Guarding due to palpation present (GI) and Yes No hepatosplenomegaly present Extremity: COMMON NORMALS: normal to inspection, capillary refill normal, no clubbing, cyanosis or edema, no calf tenderness and no pedal edema Neuro: SENSORIUM/ORIENTATION: Yes oriented to person, Yes oriented to place and Yes oriented to time Skin: COMMON NORMALS: no rashes or lesions noted GENERAL SKIN EXAM: no rashes or lesions noted Course Vital Signs: Vital signs: Vital Signs Temperature 97.4 F L 09/17/20 10:27 Pulse Rate 72 09/17/20 14:43 Respiratory Rate 20 H 09/17/20 14:43 Blood Pressure 154/84 09/17/20 14:43 Pulse Oximetry 90 09/17/20 14:42 MDM - Abdominal Pain MDM Narrative: Medical decision making narrative: Reviewed findings with the patient give him pain and nausea medications to use as needed. Recommend that he have repeat imaging of his spleen in 1 to 2 weeks for his primary care doctor if he has any worsening or change symptoms return. Lab Data: Labs: Lab Results 09/17/20 09/17/20 09/17/20 Range/Units 10:45 10:45 11:43 WBC 7.4 (4.0-10.0) 10^3/ uL RBC 4.38 (4.1-5.3) 10^6/u L Hgb 13.7 (11.7-16.6) g/dL Hct 43.3 (42.0-52.0) % MCV 98.9 H (80-94) fL MCH 31.3 (28.0-34.0) pg MCHC 31.6 (30.0-36.0) g/dL RDW 14.1 (12.1-15.1) % Plt Count 197 (130-400) 10^3/c mm MPV 10.4 (7.4-10.4) fL Neut % (Auto) 64.9 % Lymph % (Auto) 18.7 % [place] % (Auto) 11.9 % Eos % (Auto) 3.1 % Baso % (Auto) 0.5 % Neut # (Auto) 4.81 (1.8-7.7) 10^3/u L Lymph # (Auto) 1.4 (0.8-4.8) 10^3/u L [place] # (Auto) 0.9 (0.2-0.9) 10^3/u L Eos # (Auto) 0.2 (0.0-0.8) 10^3/u L Baso # (Auto) 0.0 (0.0-0.1) 10^3/u L Nucleated RBC % (a uto) 0 % Nucleated RBCs # 0.0 /100WBC Sodium 140 (136-145) mmol/L Potassium 4.2 (3.5-5.1) mmol/L Chloride 103 (98-107) mmol/L Carbon Dioxide 27 (22-29) mmol/L Anion Gap 14.2 (5-19) BUN 10 (8-23) mg/dL Creatinine 0.9 (0.7-1.2) mg/dL GFR Calculation Not Reportable Glucose 93 (65-115) mg/dL Calculated Osmolal ity 289 (285-295) mOsm/k g Calcium 9.2 (8.5-10.5) mg/dL Total Bilirubin 0.3 (0.15-1.2) mg/dL AST 13 (0-40) U/L ALT 8 (0-41) U/L Alkaline Phosphata se 101 (40-130) IU/L Total Protein 8.4 (6.6-8.7) g/dL Albumin 3.8 (3.5-5.2) g/dL Globulin 4.6 (1.3-4.6) g/dL Lipase 39 (13-60) U/L Urine Color Yellow (Yellow) Urine Appearance Clear (CLEAR) Urine pH 5 (5-7) Ur Specific Gravit y 1.015 (1.005-1.030) Urine Protein Neg (Negative) Urine Glucose (UA) Norm (Normal) Urine Ketones Negative (Negative) Urine Blood Neg (Negative) Urine Nitrate Negative (Negative) Urine Bilirubin Neg (Negative) Urine Urobilinogen 1 H (Negative) mg/dL Ur Leukocyte Mireya ase Negative (Negative) Discharge Plan Discharge Patient Disposition: Home Clinical Impression: Infarction of spleen Condition: Stable Prescriptions: New hydrocodone-acetaminophen 5-325 mg tablet 1 tab PO Q6H PRN (Reason: pain) Qty: 20 RF: 0 Zofran 4 mg tablet 4 mg PO Q6H PRN (Reason: nausea and vomiting) Qty: 20 RF: 0 No Action methotrexate sodium 25 mg/mL Solution 25 mg IM Q7D RF: 0 Hold Instructions: Resume on 09/09/20. Hold until you see your senior android software engineer folic acid 1 mg Tablet 1 mg PO DAILY@09 RF: 0 propranolol 20 mg Tablet 20 mg PO BID@ RF: 0 vitamins A,C,Q-tikm-ygajzp [id number] xddy-pq-lfxu Capsule 1 cap PO DAILY@ RF: 0 budesonide-formoterol [Symbicort] 160-4.5 mcg/actuation Hfa Aerosol Inhaler 2 puff INHALATION BID@ RF: 0 Spiriva Respimat 2.5 mcg/actuation Mist 2 puff INHALATION DAILY@ RF: 0 Eliquis 5 mg Tablet 5 mg PO BID@ RF: 0 albuterol sulfate 90 mcg/actuation HFA aerosol inhaler 1 inh inhalation Q6H PRN (Reason: shortness of breath or wheezing) Qty: 18 RF: 0 Discharge Orders: Discharge ED (Routine); Ordered 09/17/20 Ordered By: Christiano Olivares Referrals: Kvng Mirza MD [Primary Care Provider] - Discharge Diet: Usual diet Discharge Activity: Increase activity as tolerated Activity Restrictions/Additional Instructions: CT showed a splenic infarct. This should be followed up on within the next 1 to 2 weeks. If you have worsening pain return otherwise follow-up with your primary care doctor this coming week for further evaluation use pain medicines given above. Coding Level of Care Code ED Aircraft Lay Out Worker for [facility] Fwd Exam Comprehensive
[2020-09-17 11:39] LABS: Basophils % 0.5 %; Eosinophils # 0.2 10^3/uL (0.0-0.8); Eosinophils % 3.1 %; Hematocrit 43.3 % (42.0-52.0); Hemoglobin 13.7 g/dL (11.7-16.6); Lymphocytes # 1.4 10^3/uL (0.8-4.8); Lymphocytes % 18.7 %; Mean Corpuscular HGB Conc 31.6 g/dL (30.0-36.0); Mean Corpuscular Hemoglobin 31.3 pg (28.0-34.0); Mean Corpuscular Volume 98.9 fL (80-94); Mean Platelet Volume 10.4 fL (7.4-10.4); Monocytes # 0.9 10^3/uL (0.2-0.9); Monocytes % 11.9 %; Neutrophils # 4.81 10^3/uL (1.8-7.7); Neutrophils % 64.9 %; Nucleated Red Blood Cells % 0 %; Platelet Count 197 10^3/cmm (130-400); Red Blood Count 4.38 10^6/uL (4.1-5.3); Red Cell Distribution Width 14.1 % (12.1-15.1); White Blood Count 7.4 10^3/uL (4.0-10.0)
[2020-09-17 11:53] LABS: Alanine Aminotransferase 8 U/L (0-41); Albumin Level 3.8 g/dL (3.5-5.2); Alkaline Phosphatase 101 IU/L (40-130); Anion Gap 14.2 (5-19); Aspartate Amino Transferase 13 U/L (0-40); Blood Urea Nitrogen 10 mg/dL (8-23); Calcium 9.2 mg/dL (8.5-10.5); Carbon Dioxide 27 mmol/L (22-29); Chloride 103 mmol/L (98-107); Globulin 4.6 g/dL (1.3-4.6); Glucose 93 mg/dL (65-115); Lipase 39 U/L (13-60); Osmolality Calculated 289 mOsm/kg (285-295); Potassium 4.2 mmol/L (3.5-5.1); Sodium 140 mmol/L (136-145); Total Bilirubin 0.3 mg/dL (0.15-1.2); Total Protein 8.4 g/dL (6.6-8.7)
[2020-09-17 12:07] LABS: Add Urine Microscopic? NO
[2020-09-17 12:18] LABS: Urine Appearance Clear (CLEAR); Urine Color Yellow (Yellow); pH Urine 5 (5-7)
[2020-09-17 12:19] LABS: Bilirubin Urine Neg (Negative); Blood Urine Neg (Negative); Glucose Urine UA Norm (Normal); Ketones Urine Negative (Negative); Leukocyte Esterase Urine Negative (Negative); Nitrate Urine Negative (Negative); Protein Urine Neg (Negative); Specific Gravity, Urine 1.015 (1.005-1.030); Urobilinogen Urine 1 mg/dL (Negative)
--- NOTE | 2020-09-17 12:22 | CTR_ITS ---
PROCEDURE INFORMATION: Exam: CT Angiography Chest With Contrast Exam date and time: 09/17/2020 12:34 PM Age: 74 years old Clinical indication: Shortness of breath; Prior surgery; Surgery type: Lt lung; Additional info: Abd pain TECHNIQUE: Imaging protocol: Computed tomographic angiography of the chest with contrast. 3D rendering (Not supervised by radiologist): MIP and/or 3D reconstructed images were created by the technologist. Radiation optimization: All CT scans at this facility use at least one of these dose optimization techniques: automated exposure control; mA and/or kV adjustment per patient size (includes targeted exams where dose is matched to clinical indication); or iterative reconstruction. Contrast material: OMNI 350; Contrast volume: 87 ml; Contrast route: INTRAVENOUS (IV); COMPARISON: 1. CT angio chest PE protcl [id number] 08/17/2020 9:04 AM 2. CR (CHEST, ) 09/17/2020 10:53:03 AM RADIATION DOSE METRICS: Total DLP (mGy-cm): 570.74 FINDINGS: Limitations: The study is technically limited by breathing motion artifact. Pulmonary arteries: No central pulmonary embolism, but segmental/subsegmental embol, particularly in the lung bases, cannot be excluded due to breathing motion artifact. Aorta: The thoracic aorta is atherosclerotic. No thoracic aortic aneurysm or evidence of dissection. Lungs: There is bilateral emphysema. Irregular noncalcified opacity in the right upper lobe is unchanged. There is however airspace disease in the posterior aspect of the left upper lobe and dependent portion of the left lower lobe which can be due to pneumonia. Prior partial right pneumonectomy. Band-like atelectasis versus fibrosis anterior to the right hilum. Pleural spaces: No pleural effusion or pneumothorax. Heart: The heart is not enlarged. No pericardial effusion. There is coronary artery disease. Lymph nodes: No enlarged lymph nodes. Bones/joints: No acute osseous abnormality. Soft tissues: No acute soft tissue abnormality. CT/CT angio chest PE protcl [id number] IMPRESSION: 1. No central pulmonary embolism. Cannot exclude segmental/subsegmental emboli due to motion artifact. 2. Left upper and lower lobe airspace disease, potentially due to pneumonia. 3. No change in nonspecific right upper lobe opacity. Radiation Dose CTDIVOL = (mGy): DLP = 570.74 (mGy-cm)
[2020-09-17] MEDS: iohexol 350 mg/mL 100 mL Btl IV (12:50)
--- NOTE | 2020-09-17 12:57 | CTR_ITS ---
PROCEDURE INFORMATION: Exam: CT Abdomen And Pelvis With Contrast Exam date and time: 09/17/2020 1:27 PM Age: 74 years old Clinical indication: Abdominal pain; Localized; Left lower quadrant (llq); Patient HX: C/O llq abd pain w n/v TECHNIQUE: Imaging protocol: Computed tomography of the abdomen and pelvis with contrast. Radiation optimization: All CT scans at this facility use at least one of these dose optimization techniques: automated exposure control; mA and/or kV adjustment per patient size (includes targeted exams where dose is matched to clinical indication); or iterative reconstruction. Contrast material: OMNI 300; Contrast volume: 63 ml; Contrast route: INTRAVENOUS (IV); COMPARISON: No relevant prior studies available. RADIATION DOSE METRICS: Total DLP (mGy-cm): 439.13 FINDINGS: Liver: The liver is not enlarged. Small low-attenuation lesions are present, likely due to cysts. Gallbladder and bile ducts: No calcified gallstones, gallbladder wall thickening, or pericholecystic inflammation. No biliary ductal dilation. Pancreas: No pancreatic mass. No peripancreatic inflammation. No pancreatic ductal dilation. Spleen: The spleen is prominent in size. There is an irregular low-attenuation lesion in the inferior pole of the spleen. This low attenuation lesion measures up to approximately 3 cm in size. There is adjacent stranding in the perisplenic flat at the inferior pole of the spleen. Adrenal glands: No adrenal mass. Kidneys and ureters: No hydronephrosis or hydroureter. Cannot exclude nonobstructing renal calculi as there is excreted contrast within the collecting systems. Stomach and bowel: No bowel obstruction, colitis or diverticulitis. Appendix: The appendix has a normal caliber with no wall thickening. No periappendiceal stranding. Intraperitoneal space: No ascites or pneumoperitoneum. Vasculature: No abdominal aortic aneurysm. The mesenteric arteries are patent. The mesenteric, portal, and hepatic veins are patent. Lymph nodes: No pathologically enlarged lymph nodes. Urinary bladder: Excreted contrast within the urinary bladder. No intraluminal filling defect or bladder wall thickening. Reproductive: The prostate is enlarged. Bones/joints: Multilevel facet arthropathy and disc degeneration in the lower lumbar spine. Soft tissues: No acute soft tissue abnormality. CT/CT abdomen pelvis w con* [id number] IMPRESSION: 1. No bowel obstruction, colitis or diverticulitis. 2. Nonspecific lesion in the inferior pole of the spleen with adjacent perisplenic fat stranding. The differential diagnosis is wide and would include splenic infarct, hematoma if there was trauma, and potentially neoplasm. Radiation Dose CTDIVOL = (mGy): DLP = 439.13 (mGy-cm)
[2020-09-17] MEDS: iohexol 300 mg/mL 100 mL Btl IV (13:30)
[2020-09-17 14:42] VITALS: BP 156/87; PULSE 77; RESP 20; O2SAT 90
[2020-09-17 14:43] VITALS: BP 154/84; PULSE 72; RESP 20
== END 2020-09-17 14:46 | disposition home or self-care (01) ==
PROVIDERS: Emergency Provider Family Medicine; PCP Family Medicine
DX: D73.5 Infarction of spleen (principal); Z79.01 Long term (current) use of anticoagulants; J44.9 Chronic obstructive pulmonary disease, unspecified; Z86.73 Personal history of transient ischemic attack (TIA), and cerebral infarction without residual deficits; I10 Essential (primary) hypertension; Z87.891 Personal history of nicotine dependence
CPT/HCPCS: 12345; 71045; 71275; 74177; 80053; 81003; 83690; 85025; 93005; 99282; 99283; Q9967

== ENCOUNTER → 2020-12-20 10:13 | Outpatient (BNVA) | payer OTHER, SELFPAY | PROVIDERS: Visit Provider Internal Medicine Rheumatology | DX: M05.79 Rheumatoid arthritis with rheumatoid factor of multiple sites without organ or systems involvement (principal); M79.89 Other specified soft tissue disorders; Z79.899 Other long term (current) drug therapy; Z86.718 Personal history of other venous thrombosis and embolism; Z85.118 Personal history of other malignant neoplasm of bronchus and lung; Z90.2 Acquired absence of lung [part of]; F17.210 Nicotine dependence, cigarettes, uncomplicated | CPT/HCPCS: 99204 ==

== ENCOUNTER 2021-01-31 09:35 | Outpatient (CLI) | payer OTHER, SELFPAY ==
--- NOTE | 2021-01-31 10:15 | USCV_ITS ---
Will Loza Age: 75 Gender: M : 1945 Exam Date: 01/31/2021 09:51 Ordering Phys: Bob Rob MD Technologist: Lacey Flower [place] [facility] [place]: Rechecking DVT Rt leg HISTORY: Known DVT Rt. Leg. PROCEDURES: Venous duplex imaging was performed in only the right lower extremity. The following venous structures were evaluated: common femoral vein, profunda vein, proximal portion of the greater saphenous vein, superficial femoral vein, and the popliteal vein. In addition, the posterior tibial and peroneal trunk were evaluated. Serial compression, augmentation maneuvers, and spectral Doppler flow evaluation were performed. FINDINGS: Debris seen Rt. CFV thru Rt FV Prox thru Rt FV Mid. At Distal Rt. FV the vessel is occluded. There is another venous structure that bypasses this point. It has flow. CONCLUSIONS Non occlusive thrombus Right CFV extending into right proximal and mid femoral vein. Distal FV is occluded with thrombus. Calf vessels are patent. Jan Miranda MD (Electronically Signed) Final Date: 31 January 2021 12:44 S
== END 2021-01-31 09:36 | disposition home or self-care (01) ==
LOC: RAD 09:39
PROVIDERS: Visit Provider Internal Medicine Rheumatology
DX: M79.89 Other specified soft tissue disorders (principal); Z86.718 Personal history of other venous thrombosis and embolism
CPT/HCPCS: 93971

== ENCOUNTER → 2021-05-01 12:55 | Outpatient (BNVA) | payer OTHER, SELFPAY | PROVIDERS: Visit Provider Internal Medicine Rheumatology | DX: M05.79 Rheumatoid arthritis with rheumatoid factor of multiple sites without organ or systems involvement (principal); Z79.899 Other long term (current) drug therapy; M79.89 Other specified soft tissue disorders; Z90.2 Acquired absence of lung [part of]; Z85.118 Personal history of other malignant neoplasm of bronchus and lung; Z86.718 Personal history of other venous thrombosis and embolism; F17.220 Nicotine dependence, chewing tobacco, uncomplicated | CPT/HCPCS: 99214 ==

== ENCOUNTER → 2021-11-06 14:28 | Outpatient (BNVA) | payer OTHER, SELFPAY | PROVIDERS: Visit Provider Internal Medicine Rheumatology | DX: M05.79 Rheumatoid arthritis with rheumatoid factor of multiple sites without organ or systems involvement (principal); Z79.899 Other long term (current) drug therapy; Z86.718 Personal history of other venous thrombosis and embolism; Z71.85 Encounter for immunization safety counseling; Z79.01 Long term (current) use of anticoagulants | CPT/HCPCS: 99214 ==

== ENCOUNTER → 2022-01-23 14:26 | Outpatient (BNVA) | payer OTHER, SELFPAY | PROVIDERS: Visit Provider Internal Medicine Rheumatology | DX: M05.79 Rheumatoid arthritis with rheumatoid factor of multiple sites without organ or systems involvement (principal); Z79.899 Other long term (current) drug therapy; Z85.118 Personal history of other malignant neoplasm of bronchus and lung; Z86.718 Personal history of other venous thrombosis and embolism; Z79.01 Long term (current) use of anticoagulants; Z71.85 Encounter for immunization safety counseling | CPT/HCPCS: 80076; 82565; 85025; 86140; 99214 ==

== ENCOUNTER 2022-03-13 07:44 | Outpatient (CLI) | payer OTHER, SELFPAY ==
--- NOTE | 2022-03-13 09:09 | PFTS_ITS ---
Date of Study:03/13/22 Date of Dictation: 03/16/2022 MECHANICS: Postbronchodilator forced vital capacity (FVC) is normal. Postbronchodilator forced expiratory volume in one second (FEV1) is normal. FEV1/FVC is reduced. There is no significant bronchodilator response. FLOW VOLUME LOOP: Sloping of expiratory limb suggestive of airflow obstruction LUNG VOLUMES: Total lung capacity (TLC) is low normal. Residual volume (RV) is reduced. DIFFUSING CAPACITY FOR CARBON MONOXIDE: Moderately reduced . INTERPRETATION: The postbronchodilator is spirometry suggestive of mild airflow obstruction. There is no significant bronchodilator response. Lung volumes suggest mild restriction. There is moderate gas transfer defect out of proportion to spirometry-suspect pulmonary vascular disease pathology neck pulmonary hypertension. Overall pulmonary function tests have mixed pattern with mild airflow obstruction on spirometry and mild restriction on lung volumes. Clinical correlation recommended. MTDD
== END 2022-03-13 07:45 | disposition home or self-care (01) ==
LOC: RT 07:45
PROVIDERS: Visit Provider Family Medicine
DX: J44.9 Chronic obstructive pulmonary disease, unspecified (principal); D02.21 Carcinoma in situ of right bronchus and lung
CPT/HCPCS: 94060; 94726; 94729; J7614

== ENCOUNTER → 2022-11-07 14:00 | Outpatient (BNVA) | payer OTHER, SELFPAY | PROVIDERS: Visit Provider Internal Medicine Rheumatology | DX: M05.79 Rheumatoid arthritis with rheumatoid factor of multiple sites without organ or systems involvement (principal); Z79.899 Other long term (current) drug therapy; Z71.85 Encounter for immunization safety counseling; Z85.118 Personal history of other malignant neoplasm of bronchus and lung | CPT/HCPCS: 36415; 80076; 82565; 85025; 86140; 99214 ==

== ENCOUNTER 2022-12-13 22:05 | Emergency (ER) | payer OTHER, SELFPAY ==
[2022-12-13 22:24] VITALS: BP 201/99; PULSE 90; RESP 20; TEMP 36.4; O2SAT 94; BMI 22.9
[2022-12-13 22:40] LABS: Basophils % 0.4 %; Eosinophils # 0.2 10^3/uL (0.0-0.8); Eosinophils % 1.9 %; Hematocrit 45.3 % (42.0-52.0); Hemoglobin 14.7 g/dL (11.7-16.6); Lymphocytes # 1.5 10^3/uL (0.8-4.8); Lymphocytes % 18.2 %; Mean Corpuscular HGB Conc 32.5 g/dL (30.0-36.0); Mean Corpuscular Hemoglobin 32.1 pg (28.0-34.0); Mean Corpuscular Volume 98.9 fl (80-94); Mean Platelet Volume 10.6 fL (7.4-10.4); Monocytes # 0.6 10^3/uL (0.2-0.9); Monocytes % 7.2 %; Neutrophils # 5.83 10^3/uL (1.8-7.7); Neutrophils % 72.1 %; Nucleated Red Blood Cells % 0 %; Platelet Count 152 10^3/cmm (130-400); Red Blood Count 4.58 10^6/uL (4.1-5.3); Red Cell Distribution Width 13.5 % (12.1-15.1); White Blood Count 8.1 10^3/uL (4.0-10.0)
--- NOTE | 2022-12-13 22:41 | CTR_ITS ---
PROCEDURE INFORMATION: Exam: CT Abdomen And Pelvis With Contrast Exam date and time: 12/13/2022 10:53 PM Age: 77 years old Clinical indication: Nausea and vomiting; Abdominal pain; Localized; Right lower quadrant (rlq); Patient HX: Rlq pain with n/v. History of lung cancer. TECHNIQUE: Imaging protocol: Computed tomography of the abdomen and pelvis with contrast. Radiation optimization: All CT scans at this facility use at least one of these dose optimization techniques: automated exposure control; mA and/or kV adjustment per patient size (includes targeted exams where dose is matched to clinical indication); or iterative reconstruction. Contrast material: OMNI 350; Contrast volume: 100 ml; Contrast route: INTRAVENOUS (IV); REPORTING DATA: Count of CT and Cardiac NM exams in prior 12 months: This patient has received 0 known CTs and 0 known cardiac nuclear medicine studies in the 12 months prior to the current study. COMPARISON: CT abdomen pelvis w con* [id number] 09/17/2020 1:22 PM RADIATION DOSE METRICS: Total DLP (mGy-cm): 403.58 FINDINGS: Lungs: Emphysematous changes. Liver: Several subcentimeter hepatic cysts. Gallbladder and bile ducts: Normal. No calcified stones. No ductal dilation. Pancreas: Normal. No ductal dilation. Spleen: Normal. No splenomegaly. Adrenal glands: Normal. No mass. Kidneys and ureters: Right mid ureter 8 mm calculus with moderate to severe hydronephrosis and hydroureter with minimal perinephric edema, please correlate for pyelonephritis. Bilateral punctate nonobstructing renal calyceal stones. Stomach and bowel: Unremarkable. No obstruction. No mucosal thickening. Appendix: No evidence of appendicitis. Intraperitoneal space: Unremarkable. No free air. No significant fluid collection. Vasculature: Unremarkable. No abdominal aortic aneurysm. Lymph nodes: Unremarkable. No enlarged lymph nodes. Urinary bladder: Prostate gland enlarged indenting the base of the urinary bladder. Reproductive: See Urinary bladder finding. Bones/joints: Unremarkable. No acute fracture. Soft tissues: Unremarkable. CT/CT abdomen pelvis w con* [id number] IMPRESSION: 1. Right mid ureter 8 mm calculus with moderate to severe hydronephrosis and hydroureter with minimal perinephric edema, please correlate for pyelonephritis. 2. Prostate gland enlarged indenting the base of the urinary bladder. 3. Emphysematous changes. 4. Several subcentimeter hepatic cysts. 5. Bilateral punctate nonobstructing renal calyceal stones.
[2022-12-13 22:42] VITALS: BP 172/79; PULSE 57; RESP 16; O2SAT 98
--- NOTE | 2022-12-13 22:43 | W.ED.ABDPA2 ---
HPI - Abdominal Pain General: Chief Complaint: Abdominal Pain Stated Complaint: ABD Pain\V Time Seen by Provider: 12/13/22 22:08 Source: patient Mode of arrival: ambulatory Limitations: no limitations History of Present Illness: 77-year-old male states has been having right lower quadrant abdominal pain since afternoon he states its been worsening he states pain is very sharp in nature rates a 7 out of 10 currently he denies any fevers denies any vomiting or diarrhea states the pain is worse with palpation and movement. He denies any dysuria. He has a history of gallstones. Associated Symptoms: Denies chills, diarrhea, dysuria, fever(s), nausea and vomiting Review of Systems Const: Denies: fever(s), chills, body aches or change in appetite Eyes: Denies: eye discomfort ENMT: Denies: throat pain or dental pain Card: Denies: chest pain Resp: Denies: dyspnea GI: Reports: abdominal pain; Denies: nausea, vomiting or diarrhea : Denies: dysuria Musc: Denies: neck pain or back pain Skin/Breast: Denies: rash Neuro: Denies: headache(s) PFSH ED PFSH: Medical History Anticoagulation adequate COPD (chronic obstructive pulmonary disease) CVA (cerebral vascular accident) High risk medication use History of DVT of lower extremity History of lung cancer in adulthood Hypertension Immunization counseling Recurrent deep vein thrombosis (DVT) Rheumatoid arthritis Right leg swelling Seropositive rheumatoid arthritis of multiple sites Surgical History History of lobectomy of lung Right upper lobe due to lung cancer History of lobectomy of lung Family History Other CAD (coronary artery disease) Social History Smoking and tobacco status: never smoked Alcohol intake: never Physical Exam Const: COMMON NORMALS: no acute distress, patient oriented x3 and healthy appearing HENMT: COMMON NORMALS: normocephalic and atraumatic HEAD & SCALP: normocephalic and atraumatic Eye: COMMON NORMALS: conjunctivae normal CONJUNCTIVA: Yes conjunctivae normal Neck/C-Spine: COMMON NORMALS: full ROM and supple Chest: COMMONS NORMALS: normal inspection of the chest and normal palpation of entire chest wall Resp: COMMON NORMALS: normal respiratory effort, No retractions, No use of accessory muscles and clear to auscultation bilaterally AUSCULTATION: clear to auscultation bilaterally Cardio: COMMON NORMALS: regular rate, regular rhythm and No murmurs present (Cardio) RATE: regular rate RHYTHM: regular rhythm GI: COMMON NORMALS: Normal to inspection, nondistended, normoactive bowel sounds present, Soft to palpation and no masses PALPATION: Yes Soft to palpation and Yes Tenderness to palpation present (GI) Details: RLQ Extremity: COMMON NORMALS: normal to inspection and full ROM Neuro: COMMON NORMALS: patient oriented x3, moves all extremities and no focal motor deficits Psych: COMMON NORMALS: mental status grossly normal, Normal thought process present and cooperative THOUGHT PROCESS: Normal thought process present Skin: COMMON NORMALS: no rashes or lesions noted and no wounds GENERAL SKIN EXAM: no rashes or lesions noted Course Vital Signs: Vital signs: Vital Signs Temperature 97.5 F L 12/13/22 22:24 Pulse Rate 70 12/13/22 23:20 Respiratory Rate 16 12/13/22 23:20 Blood Pressure 188/79 12/13/22 23:20 Pulse Oximetry 93 12/13/22 23:20 Oxygen Delivery Me thod Room Air 12/13/22 22:24 MDM - Abdominal Pain Medical Decision Making Patient presents here with right-sided pain he does have a kidney stone no signs of urinary tract infection he is pain-free currently this pain only started today we will allow him to try to pass the stone at home we will prescribe him pain meds he asked has a urologist in [place] that he has an appoint with next week I informed her to call them tomorrow let them know of the kidney stone he is return if worsening he understands agrees to plan. Lab Data 12/13/22 22:30 12/13/22 22:30 Labs/Radiology: Radiology Impressions Abdomen/Pelvis CT 12/13/22 22:41 IMPRESSION: 1. Right mid ureter 8 mm calculus with moderate to severe hydronephrosis and hydroureter with minimal perinephric edema, please correlate for pyelonephritis. 2. Prostate gland enlarged indenting the base of the urinary bladder. 3. Emphysematous changes. 4. Several subcentimeter hepatic cysts. 5. Bilateral punctate nonobstructing renal calyceal stones. Laboratory Results WBC 8.1 10^3/uL (4.0-10.0) 12/13/22: RBC 4.58 10^6/uL (4.1-5.3) 12/13/22 22: Hgb 14.7 g/dL (11.7-16.6) 12/13/22: Hct 45.3 % (42.0-52.0) 12/13/22: MCV 98.9 fl (80-94) H 12/13/22: MCH 32.1 pg (28.0-34.0) 12/13/22: MCHC 32.5 g/dL (30.0-36.0) 12/13/22: RDW 13.5 % (12.1-15.1) 12/13/22: Plt Count 152 10^3/cmm (130-400) 12/13/22: MPV 10.6 fL (7.4-10.4) H 12/13/22: Neut % (Auto) 72.1 % 12/13/22: Lymph % (Auto) 18.2 % 12/13/22: [place] % (Auto) 7.2 % 12/13/22: Eos % (Auto) 1.9 % 12/13/22: Baso % (Auto) 0.4 % 12/13/22: Neut # (Auto) 5.83 10^3/uL (1.8-7.7) 12/13/22: Lymph # (Auto) 1.5 10^3/uL (0.8-4.8) 12/13/22: Rice # (Auto) 0.6 10^3/uL (0.2-0.9) 12/13/22: Eos # (Auto) 0.2 10^3/uL (0.0-0.8) 12/13/22: Baso # (Auto) 0.0 10^3/uL (0.0-0.1) 12/13/22: Nucleated RBC % (auto) 0 % 12/13/22 22: Nucleated RBCs # 0.0 /100WBC 12/13/22 22:30 Sodium 141 mmol/L (136-145) 12/13/22 22: Potassium 4.3 mmol/L (3.5-5.1) 12/13/22 22: Chloride 102 mmol/L (98-107) 12/13/22 22: Carbon Dioxide 26 mmol/L (22-29) 12/13/22 22: Anion Gap 17.3 (5-19) 12/13/22 22: BUN 17 mg/dL (8-23) 12/13/22 22: Creatinine 1.1 mg/dL (0.7-1.2) 12/13/22 22: GFR Calculation Not Reportable 12/13/22 22: Glucose 94 mg/dL (65-115) 12/13/22 22:30 Calculated Osmolality 293 mOsm/kg (285-295) 12/13/22: Lactate 1.4 mmol/L (0.5-2.2) 12/13/22 22: Calcium 9.4 mg/dL (8.5-10.5) 12/13/22 22: Total Bilirubin 0.5 mg/dL (0.15-1.2) 12/13/22 22: AST 27 U/L (0-40) 12/13/22 22: ALT 25 U/L (0-41) 12/13/22 22: Alkaline Phosphatase 88 U/L (40-130) 12/13/22 22: Total Protein 7.8 g/dL (6.6-8.7) 12/13/22 22: Albumin 4.5 g/dL (3.5-5.2) 12/13/22 22: Globulin 3.3 g/dL (1.3-4.6) 12/13/22 22: Lipase 39 U/L (13-60) 12/13/22 22:30 Urine Color Light yellow (Yellow) 12/13/22 23:37 Urine Appearance Cloudy (CLEAR) A 12/13/22 23:37 Urine pH 6.5 (5-7) 12/13/22 23:37 Ur Specific [place] 1.005 (1.005-1.030) 12/13/22 23:37 Urine Protein 1+ (Negative) H 12/13/22 23:37 Urine Glucose (UA) Norm (Normal) 12/13/22 23:37 Urine Ketones 1+ (Negative) H 12/13/22 23:37 Urine Blood 3+ (Negative) H 12/13/22 23:37 Urine Nitrate Negative (Negative) 12/13/22 23:37 Urine Bilirubin Neg (Negative) 12/13/22 23:37 Urine Urobilinogen Neg mg/dL (Negative) 12/13/22 23:37 Ur Leukocyte Esterase Negative (Negative) 12/13/22 23:37 Urine RBC 40-50 /hpf (0-2) H 12/13/22 23:37 Urine WBC None /hpf (0-5) 12/13/22 23:37 Ur Squamous Epith Cells 0-4 /hpf (0-5) H 12/13/22 23:37 Amorphous Sediment Not Reportable 12/13/22 23:37 Urine Bacteria 2+ /hpf (NONE) H 12/13/22 23:37 Urine Mucus 3+ /hpf 12/13/22 23:37 Discharge Plan Discharge Patient Disposition: Home Clinical Impression: Kidney stone Condition: Stable Prescriptions: New hydrocodone-acetaminophen 5-325 mg tablet 1 tab PO Q6H PRN (Reason: pain) Qty: 14 0RF ondansetron 4 mg tablet,disintegrating 4 mg PO Q6H PRN (Reason: nausea and vomiting) Qty: 14 0RF tamsulosin [Flomax] 0.4 mg capsule 0.4 mg PO DAILY Qty: 5 0RF No Action famotidine 20 mg tablet 20 mg PO DAILY PRN prednisone 10 mg tablet See Rx Instructions PO .COMPLEX PRN (Reason: joint pain) Qty: 30 1RF Rx Instructions: take 1 tab daily for 3-7 days prn joint pain flare PO PRN; folic acid 1 mg tablet 2 mg PO DAILY Qty: 180 2RF methotrexate sodium 2.5 mg tablet See Rx Instructions PO .week Qty: 150 0RF Rx Instructions: Split dose.. take 10 tabs on the same day once a week, take 5 tabs in the AM and 5 tabs in the PM doxycycline hyclate 100 mg capsule 100 mg PO BID 7 Days Qty: 14 0RF albuterol sulfate 2.5 mg /3 mL (0.083 %) solution for nebulization 2.5 mg inhalation QID PRN (Reason: shortness of breath or wheezing) Qty: 75 0RF propranolol 20 mg Tablet 20 mg PO BID@, vitamins A,C,E-tjom-dwueez 14,320-226-200 [id number]-[id number] Capsule 1 cap PO DAILY@09 budesonide-formoterol [Symbicort] 160-4.5 mcg/actuation Hfa Aerosol Inhaler 2 puff INHALATION BID@, Spiriva Respimat 2.5 mcg/actuation Mist 2 puff INHALATION DAILY@09 Eliquis 5 mg Tablet 5 mg PO BID@, albuterol sulfate 90 mcg/actuation HFA aerosol inhaler 1 inh inhalation Q6H PRN (Reason: shortness of breath or wheezing) Qty: 18 0RF Discharge Orders: Discharge ED (Routine); Ordered 12/14/22 Ordered By: Pb Ann Referrals: Jocelyne Goyal MD [Primary Care Provider] - Discharge Diet: Advance as tolerated Discharge Activity: Resume usual activity Patient Instructions: Kidney Stones (ED), Opioid Safety Coding Level of Care Code ED [employer]eng[employer]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
[2022-12-13] MEDS: iohexol 350 mg/mL 500 mL Btl (per mL) IV (22:55)
[2022-12-13 23:01] LABS: Alanine Aminotransferase 25 U/L (0-41); Albumin Level 4.5 g/dL (3.5-5.2); Alkaline Phosphatase 88 U/L (40-130); Blood Urea Nitrogen 17 mg/dL (8-23); Calcium 9.4 mg/dL (8.5-10.5); Carbon Dioxide 26 mmol/L (22-29); Chloride 102 mmol/L (98-107); Globulin 3.3 g/dL (1.3-4.6); Glucose 94 mg/dL (65-115); Lipase 39 U/L (13-60); Osmolality Calculated 293 mOsm/kg (285-295); Sodium 141 mmol/L (136-145); Total Bilirubin 0.5 mg/dL (0.15-1.2); Total Protein 7.8 g/dL (6.6-8.7)
[2022-12-13 23:02] LABS: Lactate (Lactic Acid level) 1.4 mmol/L (0.5-2.2)
[2022-12-13 23:20] VITALS: BP 188/79; PULSE 70; RESP 16; O2SAT 93
[2022-12-13] MEDS: morphine 4 mg/mL SDV 1 mL IVP (23:20)
[2022-12-13] MEDS: ondansetron 2 mg/ML SDV 2 mL 4 MG IVP (23:20)
[2022-12-14 00:12] LABS: Anion Gap 17.3 (5-19); Aspartate Amino Transferase 27 U/L (0-40); Potassium 4.3 mmol/L (3.5-5.1)
[2022-12-14 00:13] LABS: Urine Color Light yellow (Yellow)
[2022-12-14 00:14] LABS: Add Urine Culture? Yes; Add Urine Microscopic? YES; Bacteria Urine 2+ /hpf; Bilirubin Urine Neg (Negative); Blood Urine 3+ (Negative); Glucose Urine UA Norm (Normal); Ketones Urine 1+ (Negative); Leukocyte Esterase Urine Negative (Negative); Mucus Urine 3+ /hpf; Nitrate Urine Negative (Negative); Protein Urine 1+ (Negative); RBC Urine 40-50 /hpf (0-2); Specific Gravity, Urine 1.005 (1.005-1.030); Squamous Epithelial Cell Urine 0-4 /hpf (0-5); Urine Appearance Cloudy (CLEAR); Urobilinogen Urine Neg (Negative); pH Urine 6.5 (5-7)
[2022-12-14 00:39] VITALS: BP 188/79; PULSE 70; RESP 16; TEMP 36.4; O2SAT 93
== END 2022-12-14 00:41 | disposition home or self-care (01) ==
PROVIDERS: Emergency Provider Emergency Medicine; PCP Family Medicine
DX: N20.0 Calculus of kidney (principal)
CPT/HCPCS: 74177; 80053; 81001; 81003; 83605; 83690; 85025; 87077; 87086; 87186; 96374; 96375; 99285; J2270; J2405; Q9967

== ENCOUNTER → 2022-12-27 08:03 | Outpatient (BNVA) | payer OTHER, SELFPAY | PROVIDERS: PCP Family Medicine; Referring Provider Family Medicine; Visit Provider Nurse Practitioner Family | DX: L81.4 Other melanin hyperpigmentation (principal); D22.5 Melanocytic nevi of trunk; Z71.89 Other specified counseling; L85.3 Xerosis cutis; L57.8 Other skin changes due to chronic exposure to nonionizing radiation; L57.0 Actinic keratosis; L21.8 Other seborrheic dermatitis | CPT/HCPCS: 17004; 99204 ==

== ENCOUNTER → 2023-02-05 12:27 | Outpatient (BNVA) | payer OTHER, SELFPAY | PROVIDERS: PCP Family Medicine; Visit Provider Internal Medicine Rheumatology | DX: M05.79 Rheumatoid arthritis with rheumatoid factor of multiple sites without organ or systems involvement (principal); Z71.85 Encounter for immunization safety counseling; Z79.899 Other long term (current) drug therapy; Z85.118 Personal history of other malignant neoplasm of bronchus and lung | CPT/HCPCS: 99214 ==

== ENCOUNTER → 2023-07-01 10:31 | Outpatient (BNVA) | payer OTHER, SELFPAY | PROVIDERS: PCP Family Medicine; Visit Provider Nurse Practitioner Family | DX: L21.8 Other seborrheic dermatitis (principal); L57.0 Actinic keratosis; L57.8 Other skin changes due to chronic exposure to nonionizing radiation; L81.4 Other melanin hyperpigmentation; D22.5 Melanocytic nevi of trunk | CPT/HCPCS: 17000; 99214 ==

== ENCOUNTER → 2023-07-30 13:53 | Outpatient (BNVA) | payer OTHER, SELFPAY | PROVIDERS: PCP Family Medicine; Visit Provider Internal Medicine Rheumatology | DX: M05.79 Rheumatoid arthritis with rheumatoid factor of multiple sites without organ or systems involvement (principal); Z79.899 Other long term (current) drug therapy; Z71.85 Encounter for immunization safety counseling; Z85.118 Personal history of other malignant neoplasm of bronchus and lung | CPT/HCPCS: 80053; 85025; 99214 ==

== ENCOUNTER 2023-11-14 09:44 | Outpatient (CLI) | payer OTHER, SELFPAY ==
--- NOTE | 2023-11-14 09:51 | MR_ITS ---
WS: [id number] MRI BRAIN WITHOUT CONTRAST HISTORY: DEMENTIA TREMORS COMPARISON: None available. TECHNIQUE: Diffusion imaging, multiplanar T1, T2 and FLAIR imaging obtained. Diffusion imaging is normal. No acute infarct. Moderate bilateral symmetric cerebral and cerebellar a [place] with mild small vessel ischemic disease. No large territory infarct. No hemorrhage. Very minim al hippocampal atrophy. Ventricles and extra-axial spaces are prominent on the basis of atrophy. No inferior displacement of cerebellar tonsils. The sella turcica and pituitary gland are unremarkabl e. Dural venous sinuses and [place] demonstrate no abnormality on this unenhanced studies. Paranasal sinuses: Clear. Mastoid air cells: Normal. Calvarium and scalp: Intact. IMPRESSION: 1. No acute infarct or hemorrhage. 2. Moderate cerebral and cerebellar atrophy with mild small vessel ischemic disease. 3. No acute intracranial findings.
== END 2023-11-14 09:45 | disposition home or self-care (01) ==
LOC: RAD 09:45
PROVIDERS: PCP Family Medicine; Visit Provider Family Medicine
DX: F03.90 Unspecified dementia, unspecified severity, without behavioral disturbance, psychotic disturbance, mood disturbance, and anxiety (principal); R25.1 Tremor, unspecified; G31.9 Degenerative disease of nervous system, unspecified
CPT/HCPCS: 70551

== ENCOUNTER → 2023-12-30 08:36 | Outpatient (BNVA) | payer OTHER, SELFPAY | PROVIDERS: PCP Family Medicine; Visit Provider Nurse Practitioner Family | DX: L21.8 Other seborrheic dermatitis (principal); L57.0 Actinic keratosis; L57.8 Other skin changes due to chronic exposure to nonionizing radiation; L81.4 Other melanin hyperpigmentation; D22.5 Melanocytic nevi of trunk; L85.3 Xerosis cutis | CPT/HCPCS: 17004; 99214 ==

== ENCOUNTER → 2024-02-11 09:47 | Outpatient (BNVA) | payer OTHER, SELFPAY | PROVIDERS: PCP Family Medicine; Referring Provider Family Medicine; Visit Provider Psychiatry & Neurology Neurology | DX: R56.9 Unspecified convulsions (principal); Z86.73 Personal history of transient ischemic attack (TIA), and cerebral infarction without residual deficits; G25.0 Essential tremor; E55.9 Vitamin D deficiency, unspecified; R68.89 Other general symptoms and signs | CPT/HCPCS: 36415; 81241; 82306; 82607; 82746; 83090; 83735; 83921; 84425; 84439; 84443; 84481; 84591; 85210; 85613; 85730; 86146; 86147; 86592; 99203 ==

== ENCOUNTER → 2024-02-14 14:15 | Outpatient (BNVA) | payer OTHER, SELFPAY | PROVIDERS: PCP Family Medicine; Visit Provider Psychiatry & Neurology Neurology | DX: R56.9 Unspecified convulsions (principal) | CPT/HCPCS: 95816 ==

== ENCOUNTER 2024-02-25 09:31 | Outpatient (CLI) | payer OTHER, SELFPAY ==
--- NOTE | 2024-02-25 09:45 | USCV_ITS ---
Will Loza Age: 78 Gender: M : 1945 Exam Date: 02/25/2024 09:58 Ordering Phys: Jono Hunter MD Technologist: R Exam Location: [facility] [place] Indication: bruit Risk Factors: Previous Vascular Surgery: Right Brachial BP: / Left Brachial BP: / Right Left Velocity (cm/s) Spectral Plaque Velocity (cm/s) Spectral Plaque Syst/Diast Broadening Syst/Diast Broadening 88.90/ 12.60 Prox CCA 98.40 / 26.30 84.40/ 15.80 Mid CCA 71.60 / 18.60 72.10/ 17.20 Distal CCA 66.10 / 18.60 76.30/ 21.10 Prox ICA 69.50 / 21.60 82.20/ 18.50 Mid ICA 55.40 / 15.50 56.40/ 13.50 Distal ICA 77.00 / 20.40 110.20 ECA 59.60 1.10 ICA/CCA 1.20 Antegrade Vertebral Antegrade 63.40/ 18.70 cm/s 58.10/ 16.60 cm/s Tri Subclavian Tri 81.30 129.3 0 CONCLUSIONS Right ICA stenosis <50%. Moderate atheromatous plaque right carotid bulb/ICA. Left ICA stenosis <50%. Moderate atheromatous plaque left carotid bulb/ICA. Intimal thickening in the common carotid arteries and internal carotid arteries bilaterally. Normal antegrade Doppler flow noted in the right vertebral artery. Normal antegrade Doppler flow noted in the left vertebral artery. Jan Miranda MD (Electronically Signed) Final Date: 25 February 2024 17:50 S
== END 2024-02-25 09:32 | disposition home or self-care (01) ==
PROVIDERS: PCP Family Medicine; Visit Provider Psychiatry & Neurology Neurology
DX: G45.9 Transient cerebral ischemic attack, unspecified (principal); I65.23 Occlusion and stenosis of bilateral carotid arteries
CPT/HCPCS: 93880

== ENCOUNTER 2024-03-04 11:00 | Outpatient (CLI) | payer OTHER, SELFPAY ==
--- NOTE | 2024-03-04 11:54 | CT_ITS ---
WS: [id number] CT CHEST TECHNIQUE: Contrast enhanced CT of the chest with coronal and sagittal reformatted images. CLINICAL INFORMATION: R LUNG NODULE COMPARISON: CTA 2020 DLP: 228.[address] scans at [facility] use at least one of these dose optimization techniques: automated e xposure control; mA and/or kV adjustment per patient size (includes targeted exams where dose is matc hed to clinical indication); or iterative reconstruction. FINDINGS: Advanced chronic emphysematous changes with areas of pleural-parenchymal scarring and scattered fibro sis. Previously described opacity in the RIGHT upper lobe is slightly decreased in size compared to p revious measuring approximately 6 mm today. Nodular fibrotic opacities LEFT lower lobe were present previously. Patchy fibrotic nodular confluent opacity near the diaphragm appears progressed compared to previous measuring 3.6 x 2.2 cm. Aortic calcification. Normal caliber thoracic aorta. Main pulmonary arteries appear normal. No medias tinal or hilar lymphadenopathy. Small nodules in the thyroid. There are few tiny cysts in the liver some too small to characterize. Adrenal glands are normal.Chanel c and SMA are patent in the upper abdomen. CT/CT chest w con* [id number] IMPRESSION: 1. Previously described opacity RIGHT upper lobe is slightly smaller today davon suring 6 mm. 2. Advanced chronic emphysematous changes with pleural-parenchymal scarring an d scattered fibrosis in both lungs. 3. Nodular fibrotic opacities LEFT lower lobe some of which are slightly progr essed compared to previous. Recommend 6-month follow-up. 4. Small esophageal hiatal hernia. 5. No other acute findings.
[2024-03-04] MEDS: iohexol 350 mg/mL 500 mL Btl (per mL) IV (12:25)
== END 2024-03-04 11:52 | disposition home or self-care (01) ==
PROVIDERS: PCP Family Medicine; Visit Provider Family Medicine
DX: R91.1 Solitary pulmonary nodule (principal); J43.9 Emphysema, unspecified; J84.10 Pulmonary fibrosis, unspecified; R91.8 Other nonspecific abnormal finding of lung field; K44.9 Diaphragmatic hernia without obstruction or gangrene; I70.0 Atherosclerosis of aorta; E04.2 Nontoxic multinodular goiter
CPT/HCPCS: 71260; Q9967

== ENCOUNTER → 2024-03-31 09:53 | Outpatient (BNVA) | payer OTHER, SELFPAY | PROVIDERS: PCP Family Medicine; Visit Provider Nurse Practitioner Family | DX: L57.0 Actinic keratosis (principal); L21.8 Other seborrheic dermatitis; L57.8 Other skin changes due to chronic exposure to nonionizing radiation; L81.4 Other melanin hyperpigmentation; D22.5 Melanocytic nevi of trunk | CPT/HCPCS: 17000; 99214 ==

== ENCOUNTER → 2024-07-01 09:29 | Outpatient (BNVA) | payer OTHER, SELFPAY | PROVIDERS: PCP Family Medicine; Visit Provider Nurse Practitioner Family | DX: L21.8 Other seborrheic dermatitis (principal); L57.8 Other skin changes due to chronic exposure to nonionizing radiation; L81.4 Other melanin hyperpigmentation; D22.5 Melanocytic nevi of trunk; L57.0 Actinic keratosis; D48.5 Neoplasm of uncertain behavior of skin | CPT/HCPCS: 17004; 17280; 99214 ==

== ENCOUNTER 2024-08-20 11:37 | Outpatient (CLI) | payer OTHER, SELFPAY ==
--- NOTE | 2024-08-20 11:54 | CT_ITS ---
WS: [id number] CT chest w con* [id number] HISTORY: FOLLOW UP ABNORMAL CT TECHNIQUE: Axial imaging performed through the thorax. Coronal and sagittal reformats are submitted. All CT scans at [facility] use at least one of these dose optimization techniques: automated exposure control; mA and/or kV adjustment per patient size (includes targeted exams where dose is mat ched to clinical indication); or iterative reconstruction. CONTRAST: Omnipaque 350; 100 mL IV. DLP: 250.06 mGy.cm COMPARISON: 08/17/2020, 09/17/2020, 03/04/2024 Lungs and central airway: Severe emphysema. Previously described 8 mm nodule in the RIGHT upper lobe no longer present. Additional areas of scarring and peripheral fibrosis are identified. New masslike consolidation LEFT upper lobe abuts the superior fissure. Masslike consolidation measures 1.9 x 1.8 x 3.7 cm. Additional scattered slightly spiculated opacifications at the LEFT lung base. Previously de scribed consolidation at the LEFT lung base has resolved. Pleura: Normal. No pleural effusion. Heart and pericardium: Normal size heart. Small pericardial effusion. Mediastinum and jose: No mediastinum or hilar adenopathy. Vessels: Mild atherosclerosis aorta. No aneurysm. Normal size pulmonary artery. Chest wall and lower neck: No soft tissue masses. Upper abdomen: Small hiatal hernia. No adrenal mass. Osseous structures: Increase in thoracic kyphosis. CT/CT chest w con* [id number] IMPRESSION: 1. Previously described 8 mm RIGHT upper lobe pulmonary nodule has resolved. 2. New masslike consolidation LEFT upper lobe abuts the fissure measures 1.9 x 1.8 x 3.7 cm. Neoplasm versus pneumonia or inflammatory mass. 3. Additional scattered spiculated nodules at the LEFT lung base. The larger f ibrotic lesion previously described at the LEFT lung base has resolved. 4. No mediastinal or hilar adenopathy. 5. Severe emphysema with areas of fibrosis and scarring. 6. Recommendation: Follow-up chest CT with IV contrast in 3 months.
[2024-08-20] MEDS: iohexol 350 mg/mL 500 mL Btl (per mL) IV (12:38)
== END 2024-08-20 11:38 | disposition home or self-care (01) ==
PROVIDERS: PCP Family Medicine; Visit Provider Family Medicine
DX: Z01.89 Encounter for other specified special examinations (principal); R91.1 Solitary pulmonary nodule; J43.9 Emphysema, unspecified; J84.10 Pulmonary fibrosis, unspecified; J98.4 Other disorders of lung; R91.8 Other nonspecific abnormal finding of lung field; I70.0 Atherosclerosis of aorta; K44.9 Diaphragmatic hernia without obstruction or gangrene; M40.294 Other kyphosis, thoracic region
CPT/HCPCS: 71260

== ENCOUNTER → 2024-08-21 10:45 | Outpatient (BNVA) | payer OTHER, SELFPAY | PROVIDERS: PCP Family Medicine; Visit Provider Nurse Practitioner Family | DX: L57.8 Other skin changes due to chronic exposure to nonionizing radiation (principal); L81.4 Other melanin hyperpigmentation; D22.39 Melanocytic nevi of other parts of face; D48.5 Neoplasm of uncertain behavior of skin; L57.0 Actinic keratosis | CPT/HCPCS: 11102; 17000; 99213 ==

== ENCOUNTER → 2024-09-15 13:06 | Outpatient (BNVA) | payer OTHER, SELFPAY | PROVIDERS: PCP Family Medicine; Visit Provider Psychiatry & Neurology Neurology | DX: G40.909 Epilepsy, unspecified, not intractable, without status epilepticus; G25.0 Essential tremor; R68.89 Other general symptoms and signs | CPT/HCPCS: 99212 ==

== ENCOUNTER 2024-09-25 08:29 | Outpatient (CLI) | payer OTHER, SELFPAY ==
--- NOTE | 2024-09-25 09:00 | USCV_ITS ---
Will Loza Age: 78 Gender: M : 1945 Exam Date: 09/25/2024 08:47 Ordering Phys: Jono Hunter MD Technologist: JOSEPH Exam Location: [facility] – [place] Indication: TIA Risk Factors: Previous Vascular Surgery: Right Brachial BP: / Left Brachial BP: / Right Left Velocity (cm/s) Spectral Plaque Velocity (cm/s) Spectral Plaque Syst/Diast Broadening Syst/Diast Broadening 88.00/ 16.70 Prox CCA 91.20 / 16.40 80.20/ 19.30 Mid CCA 83.80 / 21.70 77.50/ 18.00 Distal CCA 61.10 / 17.00 61.90/ 10.20 Prox ICA 75.40 / 21.10 73.30/ 19.20 Mid ICA 64.00 / 19.20 63.00/ 17.90 Distal ICA 70.10 / 17.50 68.40 ECA 66.60 0.80 ICA/CCA 1.20 Antegrade Vertebral Antegrade 49.50/ 9.30 cm/s 66.80/ 19.80 cm/s Tri Subclavian Tri 61.80 61.00 FINDINGS Comparison:. 02/25/24 No significant elevation of systolic or diastolic velocities. Diffuse bilateral scattered calcified plaque and intimal thickening throughout the common carotid arteries and extending through the bifurcation. Antegrade vertebral arteries. CONCLUSIONS Bilateral ICA stenosis less than 50%. Minimal progression of atherosclerotic plaque since the prior exam. Dr. Miroslava Du DO (Electronically Signed) Final Date: 25 September 2024 10:40 S
== END 2024-09-25 08:30 | disposition home or self-care (01) ==
PROVIDERS: PCP Family Medicine; Visit Provider Psychiatry & Neurology Neurology
DX: G45.9 Transient cerebral ischemic attack, unspecified (principal); G40.909 Epilepsy, unspecified, not intractable, without status epilepticus
CPT/HCPCS: 93880

== ENCOUNTER → 2024-10-08 08:47 | Outpatient (BNVA) | payer OTHER, SELFPAY | PROVIDERS: PCP Family Medicine; Visit Provider Dermatology | DX: L21.8 Other seborrheic dermatitis (principal); C44.329 Squamous cell carcinoma of skin of other parts of face; L57.0 Actinic keratosis | CPT/HCPCS: 13132; 17000; 17311; 99214 ==

== ENCOUNTER 2024-12-09 11:56 | Emergency (ER) | payer OTHER, MEDICARE, SELFPAY ==
[2024-12-09 11:58] VITALS: BP 148/66; PULSE 65; RESP 18; TEMP 36.6; O2SAT 96; BMI 20.8
--- NOTE | 2024-12-09 12:14 | ED_ITS ---
HPI - Eye Problem General: Chief complaint: Eye Problems Stated complaint: lt eye blurry / pain Time Seen by Provider: 12/09/24 12:11 History of Present Illness: 79-year-old man with a history of DVT on Eliquis, stroke, rheumatoid arthritis, hypertension and COPD who presents to the emergency room with left eye pain and blurriness. He says he has occasional sharp pains and this is similar to when he had shingles a couple of years ago. Eye appears grossly intact. No evidence of any rash at this time. Related Data Home Medications ?Medication ?Instructions ?Recorded ?Confirmed apixaban 5 mg tablet (Eliquis) 5 mg PO BID@,08/1709/15/24 budesonide-formoterol HFA 160 2 puff inhalation BID@ ,08/17/20 09/15/24 mcg-4.5 mcg/actuation aerosol inhaler (Symbicort) propranolol 20 mg tablet 20 mg PO BID@,08/17/20 09/15/24 tiotropium bromide 2.5 2 puff inhalation DAILY@ 1 09/15/24 mcg/actuation mist for inhalation (Spiriva Respimat) vitamins A,C,K-mmpb-lzntke 4,296 1 cap PO DAILY@09/15/24 mcg-226 mg-90 mg capsule famotidine 20 mg tablet 20 mg PO DAILY PRN 12/20/20 09/15/24 Previous Rx's ?Medication ?Instructions ?Recorded albuterol sulfate 90 mcg/actuation 1 inh inhalation Q6 H PRN shortness 08/19/20 aerosol inhaler of breath or wheezing #18 gr ams prednisone 10 mg tablet See Rx Instructions PO .COMP COLLETTE 11/06/21 PRN joint pain #30 tabs albuterol sulfate 2.5 mg/3 mL 2.5 mg (3 mL) inhalation QID PRN 11/14/21 (0.083 %) solution for nebulization shortness of breat h or wheezing #75 mL ondansetron 4 mg disintegrating 4 mg PO Q6H PRN nausea and 12/14/22 tablet vomiting #14 tabs tamsulosin 0.4 mg capsule (Flomax) 0.4 mg PO DAILY #5 caps 12/14/22 folic acid 1 mg tablet 2 mg (2 x 1 mg) PO DAILY #18 0 tabs 11/26/23 methotrexate sodium 2.5 mg tablet See Rx Instructions PO .week 11/26/23 Rheumatoid Arthritis #150 tabs rosuvastatin 20 mg tablet 20 mg PO DAILY #30 tabs 08/20 04/12 prednisolone acetate 1 % eye 1 drp ophthalmic (eye) QI D 7 days 12/09/24 drops,suspension #10 mL prednisone 20 mg tablet 60 mg (3 x 20 mg) PO DAILY # 20 tabs 12/09/24 valacyclovir 1 gram tablet 1,000 mg PO Q12H 10 days #2 0 tabs 12/09/24 Allergies Allergy/AdvReac Type Severity Reaction Status Date / Time No Known Allergies Allergy Verified 09/15/24 11:43 Review of Systems Narrative: Constitutional symptoms: Negative except as documented in HPI. Skin symptoms: Negative except as documented in HPI. Eye symptoms: Negative except as documented in HPI. ENMT symptoms: Negative except as documented in HPI. Respiratory symptoms: Negative except as documented in HPI. Cardiovascular symptoms: Negative except as documented in HPI. Gastrointestinal symptoms: Negative except as documented in HPI. Genitourinary symptoms: Negative except as documented in HPI. Musculoskeletal symptoms: Negative except as documented in HPI. Neurologic symptoms: Negative except as documented in HPI. Psychiatric symptoms: Negative except as documented in HPI. Endocrine symptoms: Negative except as documented in HPI. PFSH ED PFSH: Medical History Immunization counseling High risk medication use History of DVT of lower extremity History of lung cancer in adulthood Right leg swelling Seropositive rheumatoid arthritis of multiple sites CVA (cerebral vascular accident) Recurrent deep vein thrombosis (DVT) Anticoagulation adequate Rheumatoid arthritis Hypertension COPD (chronic obstructive pulmonary disease) Surgical History History of lobectomy of lung History of lobectomy of lung Right upper lobe due to lung cancer Family History Other CAD (coronary artery disease) Social History Smoking and tobacco/nicotine status: former use of tobacco/nicotine Alcohol intake: never Physical Exam Narrative: EXAM NARRATIVE: General: Alert, no acute distress. Skin: Warm, dry. Head: Normocephalic, atraumatic. Neck: Supple, trachea midline. Eye: Extraocular movements are intact. Sclera appears normal. Retina appears grossly normal. Ears, nose, mouth and throat: mucosa moist. Cardiovascular: Regular, Normal peripheral perfusion. Respiratory: Lungs are clear to auscultation, respirations are non-labored, breath sounds are equal, Symmetrical chest wall expansion. Gastrointestinal: Soft, Nontender, Non distended Musculoskeletal: Normal ROM, no deformity. Neurological: Alert and oriented, No focal neurological deficit observed. Psychiatric: Cooperative, appropriate mood & affect. Course Vital Signs: Vital signs: Vital Signs Temperature 97.9 F 12/09/24 11:58 Pulse Rate 65 12/09/24 11:58 Respiratory Rate 18 12/09/24 11:58 Blood Pressure 148/66 12/09/24 11:58 Pulse Oximetry 96 12/09/24 11:58 Oxygen Delivery Me thod Room Air 12/09/24 11:58 MDM - Eye Problem Medical Decision Making I reviewed the patient's medical record. Reexamination: Patient remained stable. No increased work of breathing. No altered mental status. No focal motor deficits. Vision is grossly normal with his glasses on. Particularly his left eye which is symptomatic he has 20/20 vision in that eye. Consultation: I spoke with Dr. Goldman with ophthalmology. He will evaluate the patient tomorrow in clinic. He will work him in after 9 AM. Assessment and plan: Eye pain ?Given the patient's history of shingles and similar symptoms I am going to place him on steroids, steroid eyedrops and valacyclovir. He will follow-up with Optho tomorrow. - Discharged home - Discussed plan with patient. Answered any questions. - Evaluation and treatment of this problem were appropriate in the emergency setting. No radiology studies performed this visit Discharge Plan Discharge Patient Disposition: Home Clinical Impression: Eye pain Condition: Stable Prescriptions: New valacyclovir 1 gram tablet 1,000 mg PO Q12H 10 Days Qty: 20 0RF prednisone 20 mg tablet 60 mg PO DAILY Qty: 20 0RF Rx Instructions: 3 tabs (60 mg) x 3 days. 2 tabs (40 mg) x 3 days. 1 tab (20 mg) x 3 days. 1/2 tab (10 mg) x 4 days prednisolone acetate 1 % drops,suspension 1 drp ophthalmic (eye) QID 7 Days Qty: 10 0RF No Action famotidine 20 mg tablet 20 mg PO DAILY PRN prednisone 10 mg tablet See Rx Instructions PO .COMPLEX PRN (Reason: joint pain) Qty: 30 1RF Rx Instructions: take 1 tab daily for 3-7 days prn joint pain flare PO PRN; rosuvastatin 20 mg tablet 20 mg PO DAILY Qty: 30 3RF albuterol sulfate 2.5 mg /3 mL (0.083 %) solution for nebulization 2.5 mg inhalation QID PRN (Reason: shortness of breath or wheezing) Qty: 75 0RF methotrexate sodium 2.5 mg tablet See Rx Instructions PO .week Qty: 150 0RF Rx Instructions: Split dose.. take 10 tabs on the same day once a week, take 5 tabs in the AM and 5 tabs in the PM folic acid 1 mg tablet 2 mg PO DAILY Qty: 180 2RF propranolol 20 mg Tablet 20 mg PO BID@,21 vitamins A,C,J-hjyu-ujbskt 14,320-226-200 jqqe-rq-arwp Capsule 1 cap PO DAILY@09 budesonide-formoterol [Symbicort] 160-4.5 mcg/actuation Hfa Aerosol Inhaler 2 puff INHALATION BID@,21 Spiriva Respimat 2.5 mcg/actuation Mist 2 puff INHALATION DAILY@09 Eliquis 5 mg Tablet 5 mg PO BID@,21 albuterol sulfate 90 mcg/actuation HFA aerosol inhaler 1 inh inhalation Q6H PRN (Reason: shortness of breath or wheezing) Qty: 18 0RF ondansetron 4 mg tablet,disintegrating 4 mg PO Q6H PRN (Reason: nausea and vomiting) Qty: 14 0RF Flomax 0.4 mg capsule 0.4 mg PO DAILY Qty: 5 0RF Discharge Orders: Discharge ED (Routine); Ordered 12/09/24 Ordered By: Catarina Doe Referrals: Keenan Goldman [Physician] - 12/10/24 9:00 am (Please go to Dr. Goldman's eye clinic at 9 AM and he will work you in for an evaluation.) Jocelyne Goyal MD [Primary Care Provider] - Discharge Diet: Usual diet Discharge Activity: Increase activity as tolerated Patient Instructions: Eye Pain (ED), Opioid Safety, Pain Management Activity Restrictions/Additional Instructions: Thank you for choosing [facility] for your healthcare needs today. You have been screened and evaluated and felt safe for discharge. Health conditions do change or evolve sometimes and as such it is important that you follow up with your Primary Doctor to be re checked, 3-5 days is a general good time frame for follow up. You are always welcome to return to the ED for re assessment if your symptoms are worsening or you have new concerns Print Language: Chadian Coding Level of Care Code ED Spike Maker for Trae San
--- NOTE | 2024-12-09 12:42 | PC.NURSE ---
Visual acuity with glasses R eye 20/50, L eye 20/20
[2024-12-09 12:53] VITALS: BP 146/71; PULSE 66; O2SAT 96
--- NOTE | 2024-12-10 09:07 | PC.SOCIAL ---
Dr Goldman follow up Lacey from Dr Goldman's office called & said pt is there for his follow up appt & they [facility]. She said pt was in the ER yesterday. She said she spoke to Dena & Dena transferred the call to CM. Research Neuropsychologist called Dena in the ER. She said she was not here yesterday, but will look into seeing if the referral was faxed. [facility] Neuropsychologist went ahead & faxed notes & d[facility]c paperwork to [facility] & to Dr Goldman's office([phone]) per their request. No other needs voiced for CM.
--- NOTE | 2024-12-10 09:29 | DCPLANNER ---
[facility]
== END 2024-12-09 12:53 | disposition home or self-care (01) ==
PROVIDERS: Emergency Provider Emergency Medicine; PCP Family Medicine
DX: H57.12 Ocular pain, left eye (principal); Z79.01 Long term (current) use of anticoagulants; Z87.891 Personal history of nicotine dependence; J44.9 Chronic obstructive pulmonary disease, unspecified; I10 Essential (primary) hypertension; Z86.73 Personal history of transient ischemic attack (TIA), and cerebral infarction without residual deficits
CPT/HCPCS: 99283

== ENCOUNTER 2024-12-11 20:28 | Inpatient (IN) | payer OTHER, MEDICARE, SELFPAY ==
--- NOTE | 2024-12-11 20:30 | ECG_ITS ---
[facility]24[facility] Test Date: 2024-12-11 Pat Name: Will Loza Department: Room: Gender: Male General Passenger Agent: : [id number] Requested By: Taqueria Broderick Order Number: [id number] Jerel MD: HAMLET CARDENAS Measurements Intervals Max Rate: 97 P: 50 [place]: 161 QRS: 63 QRSD: 101 T: 60 QT: 337 QTc: 430 Interpretive Statements SINUS RHYTHM MODERATE ST DEPRESSION [0.05+ mV ST DEPRESSION] INTERPRETATION BASED ON A DEFAULT AGE OF 40 YEARS Compared to ECG 09/17/2020 10:38:41 ST (T wave) deviation now present Ventricular premature complex(es) no longer present Electronically Signed On 12-14-2024 21:01:34 CDT by HAMLET CARDENAS [email or web address]
[2024-12-11 20:37] VITALS: BP 160/88; PULSE 90; RESP 36; TEMP 36.7; O2SAT 98
--- NOTE | 2024-12-11 20:50 | XRR_ITS ---
PROCEDURE INFORMATION: Exam: XR Chest Exam date and time: 12/11/2024 9:01 PM Age: 79 years old Clinical indication: Shortness of breath; SOB; Lt lower lat chest pain; Hypoxia; HX lung CA TECHNIQUE: Imaging protocol: Radiologic exam of the chest. Views: 1 view. COMPARISON: CT chest w con* [id number] 08/20/2024 12:26 PM FINDINGS: Lungs: There is peripheral opacity in the left lung which is accentuated when compared to prior CT in August. Hyperinflated lungs are otherwise stable in appearance with fine reticular opacities throughout. Pleural spaces: No pleural effusion. No pneumothorax. Heart/Mediastinum: Mild prominence of the main pulmonary artery trunk. Bones/joints: Age appropriate. XR/XR chest 1V portable [id number] IMPRESSION: Increasing peripheral opacity in the left lung. In the setting of emphysema, findings could reflect developing neoplasm. Differential diagnosis includes eosinophilic pneumonitis, or organizing pneumonia.
[2024-12-11] MEDS: morphine 4 mg/mL SDV 1 mL IVP (21:14)
--- NOTE | 2024-12-11 21:18 | ECG_ITS ---
[facility]: 2024-[facility]-11 Pat Name: Will Loza Department: Room: Gender: Male Family Centered Specialist: : [id number] Requested By: Edward Gutierrez Order Number: [id number] Beltrán MD: HAMLET CARDENAS Measurements Intervals [place] Rate: 98 P: 42 [place]: 216 QRS: -18 QRSD: 90 T: 42 QT: 350 QTc: 447 Interpretive Statements SINUS RHYTHM WITH FIRST DEGREE AV BLOCK VOLTAGE CRITERIA FOR LVH [MEETS CRITERIA IN ONE OF: R(aVL), S(V1), R(V5), R(V5/V6)+S(V1)] Compared to ECG 12/11/2024 20:34:54 First degree AV block now present Left ventricular hypertrophy now present ST (T wave) deviation no longer present Electronically Signed On 12-14-2024 21:00:03 CDT by HAMLET CARDENAS [id number] [id number]
[2024-12-11 21:21] LABS: Basophils % 0.1 %; Hematocrit 40.4 % (37-53); Lymphocytes # 1.1 10^3/uL (0.8-4.8); Lymphocytes % 5.1 %; Mean Corpuscular HGB Conc 31.7 g/dL (30-55); Mean Corpuscular Hemoglobin 31.8 pg (27-33); Mean Corpuscular Volume 100.2 fl (82-101); Mean Platelet Volume 9.9 fL (7.4-10.4); Monocytes # 0.3 10^3/uL (0.2-0.9); Monocytes % 1.2 %; Neutrophils # 20.69 10^3/uL (1.8-7.7); Neutrophils % 93.1 %; Nucleated Red Blood Cells % 0 %; Platelet Count 336 10^3/cmm (157-399); Red Blood Count 4.03 10^6/uL (3.85-5.65); Red Cell Distribution Width 15.7 % (12.1-15.1); White Blood Count 22.23 10^3/uL (3.29-11.43)
--- NOTE | 2024-12-11 21:27 | CTR_ITS ---
PROCEDURE INFORMATION: Exam: CT Chest With Contrast; Diagnostic Exam date and time: 12/11/2024 10:02 PM Age: 79 years old Clinical indication: Cough and shortness of breath; C/O left chest wall pain with cough, SOB, and hypoxia. History of cancer to left lung. ; Additional info: Left chest pain, HX of cancer TECHNIQUE: Imaging protocol: Diagnostic computed tomography of the chest with contrast. Radiation optimization: All CT scans at this facility use at least one of these dose optimization techniques: automated exposure control; mA and/or kV adjustment per patient size (includes targeted exams where dose is matched to clinical indication); or iterative reconstruction. Contrast material: OMNI 350; Contrast volume: 80 ml; Contrast route: INTRAVENOUS (IV); COMPARISON: CT chest w con* [id number] 08/20/2024 12:26 PM RADIATION DOSE METRICS: Total DLP (mGy-cm): 247.16 FINDINGS: Thyroid: Homogeneous thyroid. Lungs: Severe emphysema with extensive pulmonary parenchymal architectural distortion. There is new airspace disease in the left lower lobe and inferior segment of the lingula suggesting pneumonia. Peripheral opacity in the left upper lobe adjacent to the major fissure is more prominent than on the prior exam with international representative cross-sectional measurements of 2.5 x 1.5 cm, previously 2.0 x 1.2 cm at the same location. There is a new coarse peripheral opacity in the lingula measuring 2.0 x 1.6 cm. No airspace disease in the right lung. Changes of prior right upper lobectomy are noted. Retained secretions are noted in the tracheobronchial tree, most prominent in the left lower lobe. Pleural spaces: No pleural fluid or pneumothorax. Heart: Normal heart size. No significant pericardial fluid. Coronary arteries: Extensive coronary artery hyperdensity could be calcification and/or stent material. Lymph nodes: Mediastinal lymph nodes are more prominent than on the prior exam. Healthcare Administrator AP window node measures 10 mm short axis diameter, previously 7 mm. Subcarinal node measures 14 mm short axis dimension, previously 8 mm. No axillary or supraclavicular adenopathy. Vasculature: Normal caliber thoracic aorta with mild calcific plaque. Aortic arch branch vessels are patent. Bones/joints: Subjective bony demineralization. No acute fracture or destructive lesion. There is distortion of the right lateral 7th rib compatible with prior injury or osteotomy. There is mild spinal degenerative change with adequate spinal canal. Soft tissues: Unremarkable. CT/CT chest w con* [id number] IMPRESSION: 1. There is new airspace disease in the left lower lobe and inferior segment of the lingula most compelling for acute bacterial pneumonia. There is background emphysema and chronic bronchitis with multifocal endobronchial debris. 2. Additionally, there are nodular areas of increased attenuation in the periphery of the left upper lobe which could be additional sites of acute pneumonia although chronic eosinophilic pneumonia or organizing pneumonia could have this appearance. 3. There has been slight increase in the size of mediastinal lymph nodes which could be reactive or malignant.
[2024-12-11 21:33] LABS: INR 1.06 (0.8-1.2)
[2024-12-11 21:34] LABS: Partial Thromboplastin Time 27.3 SECONDS (23.9-36.7)
[2024-12-11 21:41] LABS: Lactic Sepsis W/Reflex 2.6 mmol/L (0.5-2.2)
[2024-12-11 21:44] LABS: Troponin(5th) Baseline 13 ng/L (0-15)
[2024-12-11 21:47] LABS: Alanine Aminotransferase 8 U/L (0-41); Albumin Level 4.2 g/dL (3.5-5.2); Alkaline Phosphatase 92 U/L (40-130); Anion Gap 17.9 (5-19); Aspartate Amino Transferase 15 U/L (0-40); Calcium 9.6 mg/dL (8.5-10.5); Carbon Dioxide 28 mmol/L (22-29); Chloride 102 mmol/L (98-107); Creatinine Clr Calc Pharmacy 51.5859; Globulin 3.5 g/dL (1.3-4.6); Glucose 90 mg/dL (65-115); Magnesium 2.1 mg/dL (1.7-2.3); Potassium 4.9 mmol/L (3.5-5.1); Sodium 143 mmol/L (136-145); Total Bilirubin 0.2 mg/dL (0.15-1.2); Total Protein 7.7 g/dL (6.6-8.7)
[2024-12-11 21:54] LABS: ABG PCO2 36.4 mmHg (35-45); ABG PH Result 7.47 (7.35-7.45); Alveolar-Arterial Oxygen Gradi 6.6 mmHg (5-10); Arterial Blood Gas Hematocrit 38.1 % (42-52); Base Excess ABG 2.9 mmol/L (-2.0-2.0); Blood Gas Operator Identificat SAM; Blood Gas Sample Site Brachial, left; Blood Gas Sample Type Arterial; Carboxyhemoglobin 1.1 %THgb (0.4-20.1); HCO3 ABG 26.5 mmol/L (22-26); Ionized Calcium Level - ABG 1.2 mmol/L (1.1-1.4); Methemoglobin < 0.0 % (0.4-1.5); Oxygen Device NC; Oxygen Saturation ABG 89.8; PO2 ABG 53.8 mmHg (80.0-100.0); Potassium Level - ABG 5.5 mmol/L (3.5-5.0); Total Hemoglobin 12.4 g/dL (14-18)
[2024-12-11 21:55] VITALS: BP 174/86; PULSE 93; RESP 24; O2SAT 93
[2024-12-11 22:00] LABS: NT Pro B Type Natriuretic Pept 436 pg/mL (0-450); Procalcitonin 0.04 ng/mL (0-0.5)
[2024-12-11] MEDS: iohexol 350 mg/mL 500 mL Btl (per mL) IV (22:06)
[2024-12-11 22:11] LABS: Blood Urea Nitrogen 32 mg/dL (8-23); Osmolality Calculated 302 mOsm/kg (285-295)
--- NOTE | 2024-12-11 22:11 | W.ED.CHESTPA ---
Documented by User: SHELTON France 12/11/24 23:10 HPI - Chest Pain General: Chief Complaint: Chest Pain Stated Complaint: left pain under breast Time Seen by Provider: 12/11/24 20:42 Source: patient and family Mode of arrival: ambulatory Limitations: no limitations History of Present Illness: Patient is a 79-year-old male with past medical history of lung cancer and status post right upper lobectomy, CVA, hypertension, and COPD who presents the emergency department complaining of sudden onset left chest pain beginning 2 hours prior to arrival. Patient is followed by pulmonology, family in the room states that he was recently diagnosed with cancer likely in the left lung but is yet to undergo biopsy. Patient is notably tachypneic in triage and family says that this is not abnormal as he has been breathing rapidly for some time now. Patient states that the pain began suddenly, and is pleuritic in nature. Stating it is located just underneath the left nipple, is not reproducible to palpation. He is on a blood thinner. Does not require oxygen at home, however following examination is noted to drop in the upper 80s and is placed on 2 L nasal cannula. He has not been reporting any fevers, productive cough, headaches or dizziness. Pain has been constant since onset, made worse by laughing or deep breathing. Mildly hypertensive, he has a history of hypertension. Patient also has a tremor and is tremulous at this time, however he states he only gets this way when he is feeling cold. MD complaint: chest pain Pertinent past history: other (COPD, lung cancer) Onset (ago): hour(s) (2) Timing of current episode: constant Prior episodes: No Onset: during rest Pain location: left chest Pain radiation: none Severity: severe Quality: other (Pleuritic) Exacerbating factors: inspiration and other (Deep breathing/coughing/laughing) Context: other (History of lung cancer) Associated symptoms: Reports dyspnea; Deny abdominal pain, fever(s), nausea, palpitations or vomiting Treatment prior to arrival: none Related Data Home Medications ?Medication ?Instructions ?Recorded ?Confirmed apixaban 5 mg tablet (Eliquis) 5 mg PO BID@08/17/20 09/15/24 budesonide-formoterol HFA 160 2 puff inhalation BID@08/17/20 09/15/24 mcg-4.5 mcg/actuation aerosol inhaler (Symbicort) propranolol 20 mg tablet 20 mg PO BID@08/17/20 09/15/24 tiotropium bromide 2.5 2 puff inhalation DAILY@08/17/20 09/15/24 mcg/actuation mist for inhalation (Spiriva Respimat) vitamins A,C,G-sewc-agnygi 4,296 1 cap PO DAILY@08/17/20 09/15/24 mcg-226 mg-90 mg capsule famotidine 20 mg tablet 20 mg PO DAILY PRN 12/20/20 09/15/24 Previous Rx's ?Medication ?Instructions ?Recorded albuterol sulfate 90 mcg/actuation 1 inh inhalation Q6H PRN shortness 08/19/20 aerosol inhaler of breath or wheezing #18 grams prednisone 10 mg tablet See Rx Instructions PO .COMPLEX 11/06/21 PRN joint pain #30 tabs albuterol sulfate 2.5 mg/3 mL 2.5 mg (3 mL) inhalation QID PRN 11/14/21 (0.083 %) solution for nebulization shortness of breath or wheezing #75 mL ondansetron 4 mg disintegrating 4 mg PO Q6H PRN nausea and 12/14/22 tablet vomiting #14 tabs tamsulosin 0.4 mg capsule (Flomax) 0.4 mg PO DAILY #5 caps 12/14/22 folic acid 1 mg tablet 2 mg (2 x 1 mg) PO DAILY #180 tabs 11/26/23 methotrexate sodium 2.5 mg tablet See Rx Instructions PO .week 11/26/23 Rheumatoid Arthritis #150 tabs rosuvastatin 20 mg tablet 20 mg PO DAILY #30 tabs 09/15/24 prednisolone acetate 1 % eye 1 drp ophthalmic (eye) QID 7 days 12/09/24 drops,suspension #10 mL prednisone 20 mg tablet 60 mg (3 x 20 mg) PO DAILY #20 tabs 12/09/24 valacyclovir 1 gram tablet 1,000 mg PO Q12H 10 days #20 tabs 12/09/24 Allergies Allergy/AdvReac Type Severity Reaction Status Date / Time No Known Allergies Allergy Verified 12/11/24 20:41 Review of Systems General: Reports: 10 or more systems reviewed and unremarkable except in HPI and below Const: Denies: fever(s), chills or fatigue Eyes: Denies: change in vision ENMT: Denies: throat pain, ear or mastoid pain or nasal discharge Card: Reports: chest pain; Denies: palpitations, swelling of feet/ankles or lightheadedness Resp: Reports: dyspnea and pain on inspiration; Denies: productive cough, wheezing or hemoptysis GI: Denies: abdominal pain, nausea, vomiting, diarrhea or constipation : Denies: flank pain, difficulty urinating, dysuria or urinary frequency Musc: Denies: neck pain, back pain or joint pain Skin/Breast: Denies: rash Neuro: Denies: headache(s), numbness in extremities or weakness in extremities PFSH ED PFSH: Medical History (Updated 12/11/24 @ 23:12 by Fred Raman MD) Lung cancer Immunization counseling High risk medication use History of DVT of lower extremity History of lung cancer in adulthood Right leg swelling Seropositive rheumatoid arthritis of multiple sites CVA (cerebral vascular accident) Recurrent deep vein thrombosis (DVT) Anticoagulation adequate Rheumatoid arthritis Hypertension COPD (chronic obstructive pulmonary disease) Surgical History History of lobectomy of lung History of lobectomy of lung Right upper lobe due to lung cancer Family History Other CAD (coronary artery disease) Social History Smoking and tobacco/nicotine status: former use of tobacco/nicotine Alcohol intake: never Physical Exam Const: OTHER: Ill-appearing, respiratory distress noted as he is tachypneic, frail HENMT: COMMON NORMALS: normocephalic, atraumatic and moist oral mucous membranes HEAD & SCALP: normocephalic and atraumatic Eye: COMMON NORMALS: Equal, round and reactive pupils present, EOMs intact bilaterally and conjunctivae normal CONJUNCTIVA: Yes conjunctivae normal PUPIL: Yes Equal, round and reactive pupils present Neck/C-Spine: COMMON NORMALS: full ROM and no JVD Chest: OTHER: Barrel chested Resp: OTHER: Tachypneic, audibly wheezing. Diffuse inspiratory and expiratory wheezing. Questionable subcutaneous emphysema on palpation of the left chest wall. Speaking in choppy sentences. Cardio: COMMON NORMALS: no JVD, regular rhythm, S1 normal heart sound present and S2 normal heart sound present RATE: tachycardic RHYTHM: regular rhythm HEART SOUNDS: S1 normal heart sound present and S2 normal heart sound present GI: COMMON NORMALS: Soft to palpation and non-tender PALPATION: Yes Soft to palpation Extremity: COMMON NORMALS: normal to inspection, full ROM and no pedal edema Neuro: COMMON NORMALS: moves all extremities, no focal motor deficits and no sensory deficits noted OTHER: Intention tremor Skin: COMMON NORMALS: no rashes or lesions noted GENERAL SKIN EXAM: no rashes or lesions noted Course Vital Signs: Vital signs: Vital Signs Temperature 99.0 F 12/12/24 04:00 Pulse Rate 79 12/12/24 04:00 Respiratory Rate 18 12/12/24 04:00 Blood Pressure 127/64 12/12/24 04:00 Pulse Oximetry 99 12/12/24 04:00 Oxygen Delivery Me thod Venturi Mask 12/12/24 04:00 Oxygen Flow Rate 10 12/12/24 04:00 Fraction of Inspir ed Oxygen 10 12/12/24 02:15 MDM - Chest Pain Medical Decision Making Patient presented for evaluation of left chest pain, history of lung cancer and prior right upper lobectomy, family in the room noted that he has a spot on his left lung that is currently being worked up. Also reportedly chronically tachypneic due to his history of lung cancer, also has history of COPD. On arrival was not requiring O2, but since has been placed on 15 L nonrebreather. On exam there was audible wheezing, diffuse inspiratory expiratory wheezing, questionable subcutaneous emphysema initially. X-ray showed peripheral opacity in left lung concerning for developing pneumonia plus or minus neoplasm. A CT ordered showing new airspace disease that confirmed the likely prevalence of bacterial pneumonia with other findings that likely explain his acute hypoxic respiratory failure. His baseline troponin was unremarkable. White blood cell count was significantly elevated as well as having a lactic of 2.6, he was started on Vanco and Zosyn as well as bolus of fluids. He has remained afebrile here, blood pressure has been noted to be decreasing and prior to admission was 100/68 in the room. I discussed plan for admission with patient and family, they agree. Dr. Gutierrez kindly interviewed the patient and did an exam, and we had advanced directives discussion where patient had stated he does not want intubation or resuscitative efforts, but would like medical treatment. I spoke with hospitalist, Dr. Raman, who currently agrees to accept the patient into the hospital, Dr. Enriquez putting in admin orders at this time. Lab Data 12/12/24 03:47 12/11/24 21:10 Radiology Impressions Chest X-Ray 12/11/24 20:50 IMPRESSION: Increasing peripheral opacity in the left lung. In the setting of emphysema, findings could reflect developing neoplasm. Differential diagnosis includes eosinophilic pneumonitis, or organizing pneumonia. Chest CT 12/11/24 21:27 IMPRESSION: 1. There is new airspace disease in the left lower lobe and inferior segment of the lingula most compelling for acute bacterial pneumonia. There is background emphysema and chronic bronchitis with multifocal endobronchial debris. 2. Additionally, there are nodular areas of increased attenuation in the periphery of the left upper lobe which could be additional sites of acute pneumonia although chronic eosinophilic pneumonia or organizing pneumonia could have this appearance. 3. There has been slight increase in the size of mediastinal lymph nodes which could be reactive or malignant. Laboratory Results WBC 22.23 10^3/uL (3.29-11.43) H 12/11/24 21:10 RBC 4.03 10^6/uL (3.85-5.65) 12/11/24 21:10 Hgb 12.80 g/dL (11.27-16.99) 12/11/24 21:10 Hct 40.4 % (37-53) 12/11/24 21:10 MCV 100.2 fl (82-101) 12/11/24 21:10 MCH 31.8 pg (27-33) 12/11/24 21:10 MCHC 31.7 g/dL (30-55) 12/11/24 21:10 RDW 15.7 % (12.1-15.1) H 12/11/24 21:10 Plt Count 336 10^3/cmm (157-399) 12/11/24 21:10 MPV 9.9 fL (7.4-10.4) 12/11/24 21:10 Neut % (Auto) 93.1 % 12/11/24 21:10 Lymph % (Auto) 5.1 % 12/11/24 21:10 Henry % (Auto) 1.2 % 12/11/24 21:10 Eos % (Auto) 0.0 % 12/11/24 21:10 Baso % (Auto) 0.1 % 12/11/24 21:10 Neut # (Auto) 20.69 10^3/uL (1.8-7.7) H 12/11/24 21:10 Lymph # (Auto) 1.1 10^3/uL (0.8-4.8) 12/11/24 21:10 Henry # (Auto) 0.3 10^3/uL (0.2-0.9) 12/11/24 21:10 Eos # (Auto) 0.0 10^3/uL (0.0-0.8) 12/11/24 21:10 Baso # (Auto) 0.0 10^3/uL (0.0-0.1) 12/11/24 21:10 Nucleated RBC % (auto) 0 % 12/11/24 21:10 Nucleated RBCs # 0.0 /100WBC 12/11/24 21:10 PT 14.60 SECONDS (12.1-14.9) 12/11/24 21:10 INR 1.06 (0.8-1.2) 12/11/24 21:10 APTT 27.3 SECONDS (23.9-36.7) 12/11/24 21:10 Specimen Type Arterial 12/11/24 21:42 Sample Site Brachial, left 12/11/24 21:42 ABG pH 7.47 (7.35-7.45) H 12/11/24 21:42 ABG pCO2 36.4 mmHg (35-45) 12/11/24 21:42 ABG pO2 53.8 mmHg (80.0-100.0) L 12/11/24 21:42 ABG HCO3 26.5 mmol/L (22-26) H 12/11/24 21:42 ABG O2 Saturation 89.8 12/11/24 21:42 ABG Base Excess 2.9 mmol/L (-2.0-2.0) H 12/11/24 21:42 Bryon Test N/a 12/11/24 21:42 A-a O2 Gradient 6.6 mmHg (5-10) 12/11/24 21:42 Hematocrit 38.1 % (42-52) L 12/11/24 21:42 Hgb O2 Saturation 89.0 % (95-100) L 12/11/24 21:42 Carboxyhemoglobin 1.1 %THgb (0.4-20.1) 12/11/24 21:42 Methemoglobin < 0.0 % (0.4-1.5) L 12/11/24 21:42 Total Hemoglobin 12.4 g/dL (14-18) L 12/11/24 21:42 Sodium 140.0 mmol/L (131-143) 12/11/24 21:42 Potassium 5.5 mmol/L (3.5-5.0) H 12/11/24 21:42 Glucose 93.0 mg/dL (70-115) 12/11/24 21:42 Ionized Calcium 1.2 mmol/L (1.1-1.4) 12/11/24 21:42 O2 Delivery Device Nc 12/11/24 21:42 O2 Liters/Min 3.0 % 12/11/24 21:42 [employer] Professor ID Gregg 12/11/24 21:42 Sodium 143 mmol/L (136-145) 12/11/24 21:10 Potassium 4.9 mmol/L (3.5-5.1) 12/11/24 21:10 Chloride 102 mmol/L (98-107) 12/11/24 21:10 Carbon Dioxide 28 mmol/L (22-29) 12/11/24 21:10 Anion Gap 17.9 (5-19) 12/11/24 21:10 BUN 32 mg/dL (8-23) H 12/11/24 21:10 Creatinine 1.1 mg/dL (0.7-1.2) 12/11/24 21:10 GFR Calculation Not Reportable 12/11/24 21:10 Glucose 90 mg/dL (65-115) 12/11/24 21:10 Calculated Osmolality 302 mOsm/kg (285-295) H 12/11/24 21:10 Lactic Acid 2.6 mmol/L (0.5-2.2) H 12/11/24 21:10 Lactic Acid (Sepsis) 1.8 mmol/L (0.5-2.2) 12/11/24 23:42 Calcium 9.6 mg/dL (8.5-10.5) 12/11/24 21:10 Magnesium 2.1 mg/dL (1.7-2.3) 12/11/24 21:10 Total Bilirubin 0.2 mg/dL (0.15-1.2) 12/11/24 21:10 AST 15 U/L (0-40) 12/11/24 21:10 ALT 8 U/L (0-41) 12/11/24 21:10 Alkaline Phosphatase 92 U/L (40-130) 12/11/24 21:10 Troponin T Baseline 13 ng/L (0-15) 12/11/24 21:10 Troponin T 120 Minute 11.67 ng/L (0-15) 12/11/24 23:08 Delta Troponin T -1.33 ABS# (0-10) L 12/11/24 23:08 NT-Pro-B Natriuret Pep 436 pg/mL (0-450) 12/11/24 21:10 Total Protein 7.7 g/dL (6.6-8.7) 12/11/24 21:10 Albumin 4.2 g/dL (3.5-5.2) 12/11/24 21:10 Globulin 3.5 g/dL (1.3-4.6) 12/11/24 21:10 Procalcitonin 0.04 ng/mL (0-0.5) 12/11/24 21:10 All radiology interpretation(s) finalized by discharge Discharge Plan Discharge Patient Disposition: Admitted As Inpatient Admit Provider: Fred Raman Clinical Impression: Bacterial pneumonia, History of lung cancer, Acute hypoxic respiratory failure Condition: Stable Coding Level of Care Code ED [employer] Supervisor for Chg Fwd Documented by User: Edward Gutierrez DO 12/12/24 04:45 HPI - Chest Pain General: Chief Complaint: Chest Pain Stated Complaint: left pain under breast Time Seen by Provider: 12/11/24 20:42 Related Data Home Medications ?Medication ?Instructions ?Recorded ?Confirmed apixaban 5 mg tablet (Eliquis) 5 mg PO BID@,08/17/20 09/15/24 budesonide-formoterol HFA 160 2 puff inhalation BID@,08/17/20 09/15/24 mcg-4.5 mcg/actuation aerosol inhaler (Symbicort) propranolol 20 mg tablet 20 mg PO BID@,08/17/20 09/15/24 tiotropium bromide 2.5 2 puff inhalation DAILY@08/17/20 09/15/24 mcg/actuation mist for inhalation (Spiriva Respimat) vitamins A,C,C-qyji-asewkr 4,296 1 cap PO DAILY@08/17/20 09/15/24 mcg-226 mg-90 mg capsule famotidine 20 mg tablet 20 mg PO DAILY PRN 12/20/20 09/15/24 Previous Rx's ?Medication ?Instructions ?Recorded albuterol sulfate 90 mcg/actuation 1 inh inhalation Q6H PRN shortness 08/19/20 aerosol inhaler of breath or wheezing #18 grams prednisone 10 mg tablet See Rx Instructions PO .COMPLEX 11/06/21 PRN joint pain #30 tabs albuterol sulfate 2.5 mg/3 mL 2.5 mg (3 mL) inhalation QID PRN 11/14/21 (0.083 %) solution for nebulization shortness of breath or wheezing #75 mL ondansetron 4 mg disintegrating 4 mg PO Q6H PRN nausea and 12/14/22 tablet vomiting #14 tabs tamsulosin 0.4 mg capsule (Flomax) 0.4 mg PO DAILY #5 caps 12/14/22 folic acid 1 mg tablet 2 mg (2 x 1 mg) PO DAILY #180 tabs 11/26/23 methotrexate sodium 2.5 mg tablet See Rx Instructions PO .week 11/26/23 Rheumatoid Arthritis #150 tabs rosuvastatin 20 mg tablet 20 mg PO DAILY #30 tabs 09/15/24 prednisolone acetate 1 % eye 1 drp ophthalmic (eye) QID 7 days 12/09/24 drops,suspension #10 mL prednisone 20 mg tablet 60 mg (3 x 20 mg) PO DAILY #20 tabs 12/09/24 valacyclovir 1 gram tablet 1,000 mg PO Q12H 10 days #20 tabs 12/09/24 Allergies Allergy/AdvReac Type Severity Reaction Status Date / Time No Known Allergies Allergy Verified 12/11/24 20:41 [facility] ED [facility]: Medical History (Updated 12/11/24 @ 23:12 by Fred Raman MD) Lung cancer Immunization counseling High risk medication use History of DVT of lower extremity History of lung cancer in adulthood Right leg swelling Seropositive rheumatoid arthritis of multiple sites CVA (cerebral vascular accident) Recurrent deep vein thrombosis (DVT) Anticoagulation adequate Rheumatoid arthritis Hypertension COPD (chronic obstructive pulmonary disease) Surgical History History of lobectomy of lung History of lobectomy of lung Right upper lobe due to lung cancer Family History Other CAD (coronary artery disease) Social History Smoking and tobacco/nicotine status: former use of tobacco/nicotine Alcohol intake: never Course Vital Signs: Vital signs: Vital Signs Temperature 99.0 F 12/12/24 04:00 Pulse Rate 79 12/12/24 04:00 Respiratory Rate 18 12/12/24 04:00 Blood Pressure 127/64 12/12/24 04:00 Pulse Oximetry 99 12/12/24 04:00 Oxygen Delivery Me thod Venturi Mask 12/12/24 04:00 Oxygen Flow Rate 10 12/12/24 04:00 Fraction of Inspir ed Oxygen 10 12/12/24 02:15 MDM - Chest Pain Lab Data 12/12/24 03:47 12/11/24 21:10 Radiology Impressions Chest X-Ray 12/11/24 20:50 IMPRESSION: Increasing peripheral opacity in the left lung. In the setting of emphysema, findings could reflect developing neoplasm. Differential diagnosis includes eosinophilic pneumonitis, or organizing pneumonia. Chest CT 12/11/24 21:27 IMPRESSION: 1. There is new airspace disease in the left lower lobe and inferior segment of the lingula most compelling for acute bacterial pneumonia. There is background emphysema and chronic bronchitis with multifocal endobronchial debris. 2. Additionally, there are nodular areas of increased attenuation in the periphery of the left upper lobe which could be additional sites of acute pneumonia although chronic eosinophilic pneumonia or organizing pneumonia could have this appearance. 3. There has been slight increase in the size of mediastinal lymph nodes which could be reactive or malignant. Laboratory Results WBC 22.23 10^3/uL (3.29-11.43) H 12/11/24 21:10 RBC 4.03 10^6/uL (3.85-5.65) 12/11/24 21:10 Hgb 12.80 g/dL (11.27-16.99) 12/11/24 21:10 Hct 40.4 % (37-53) 12/11/24 21:10 MCV 100.2 fl (82-101) 12/11/24 21:10 MCH 31.8 pg (27-33) 12/11/24 21:10 MCHC 31.7 g/dL (30-55) 12/11/24 21:10 RDW 15.7 % (12.1-15.1) H 12/11/24 21:10 Plt Count 336 10^3/cmm (157-399) 12/11/24 21:10 MPV 9.9 fL (7.4-10.4) 12/11/24 21:10 Neut % (Auto) 93.1 % 12/11/24 21:10 Lymph % (Auto) 5.1 % 12/11/24 21:10 Henry % (Auto) 1.2 % 12/11/24 21:10 Eos % (Auto) 0.0 % 12/11/24 21:10 Baso % (Auto) 0.1 % 12/11/24 21:10 Neut # (Auto) 20.69 10^3/uL (1.8-7.7) H 12/11/24 21:10 Lymph # (Auto) 1.1 10^3/uL (0.8-4.8) 12/11/24 21:10 Henry # (Auto) 0.3 10^3/uL (0.2-0.9) 12/11/24 21:10 Eos # (Auto) 0.0 10^3/uL (0.0-0.8) 12/11/24 21:10 Baso # (Auto) 0.0 10^3/uL (0.0-0.1) 12/11/24 21:10 Nucleated RBC % (auto) 0 % 12/11/24 21:10 Nucleated RBCs # 0.0 /100WBC 12/11/24 21:10 PT 14.60 SECONDS (12.1-14.9) 12/11/24 21:10 INR 1.06 (0.8-1.2) 12/11/24 21:10 APTT 27.3 SECONDS (23.9-36.7) 12/11/24 21:10 Specimen Type Arterial 12/11/24 21:42 Sample Site Brachial, left 12/11/24 21:42 ABG pH 7.47 (7.35-7.45) H 12/11/24 21:42 ABG pCO2 36.4 mmHg (35-45) 12/11/24 21:42 ABG pO2 53.8 mmHg (80.0-100.0) L 12/11/24 21:42 ABG HCO3 26.5 mmol/L (22-26) H 12/11/24 21:42 ABG O2 Saturation 89.8 12/11/24 21:42 ABG Base Excess 2.9 mmol/L (-2.0-2.0) H 12/11/24 21:42 Bryon Test N/a 12/11/24 21:42 A-a O2 Gradient 6.6 mmHg (5-10) 12/11/24 21:42 Hematocrit 38.1 % (42-52) L 12/11/24 21:42 Hgb O2 Saturation 89.0 % (95-100) L 12/11/24 21:42 Carboxyhemoglobin 1.1 %THgb (0.4-20.1) 12/11/24 21:42 Methemoglobin < 0.0 % (0.4-1.5) L 12/11/24 21:42 Total Hemoglobin 12.4 g/dL (14-18) L 12/11/24 21:42 Sodium 140.0 mmol/L (131-143) 12/11/24 21:42 Potassium 5.5 mmol/L (3.5-5.0) H 12/11/24 21:42 Glucose 93.0 mg/dL (70-115) 12/11/24 21:42 Ionized Calcium 1.2 mmol/L (1.1-1.4) 12/11/24 21:42 O2 Delivery Device Nc 12/11/24 21:42 O2 Liters/Min 3.0 % 12/11/24 21:42 [employer] Professor ID Gregg 04/25/25 21:42 Sodium 143 mmol/L (136-145) 12/11/24 21:10 Potassium 4.9 mmol/L (3.5-5.1) 12/11/24 21:10 Chloride 102 mmol/L (98-107) 12/11/24 21:10 Carbon Dioxide 28 mmol/L (22-29) 12/11/24 21:10 Anion Gap 17.9 (5-19) 12/11/24 21:10 BUN 32 mg/dL (8-23) H 12/11/24 21:10 Creatinine 1.1 mg/dL (0.7-1.2) 12/11/24 21:10 GFR Calculation Not Reportable 12/11/24 21:10 Glucose 90 mg/dL (65-115) 12/11/24 21:10 Calculated Osmolality 302 mOsm/kg (285-295) H 12/11/24 21:10 Lactic Acid 2.6 mmol/L (0.5-2.2) H 12/11/24 21:10 Lactic Acid (Sepsis) 1.8 mmol/L (0.5-2.2) 12/11/24 23:42 Calcium 9.6 mg/dL (8.5-10.5) 12/11/24 21:10 Magnesium 2.1 mg/dL (1.7-2.3) 12/11/24 21:10 Total Bilirubin 0.2 mg/dL (0.15-1.2) 12/11/24 21:10 AST 15 U/L (0-40) 12/11/24 21:10 ALT 8 U/L (0-41) 12/11/24 21:10 Alkaline Phosphatase 92 U/L (40-130) 12/11/24 21:10 Troponin T Baseline 13 ng/L (0-15) 12/11/24 21:10 Troponin T 120 Minute 11.67 ng/L (0-15) 12/11/24 23:08 Delta Troponin T -1.33 ABS# (0-10) L 12/11/24 23:08 NT-Pro-B Natriuret Pep 436 pg/mL (0-450) 12/11/24 21:10 Total Protein 7.7 g/dL (6.6-8.7) 12/11/24 21:10 Albumin 4.2 g/dL (3.5-5.2) 12/11/24 21:10 Globulin 3.5 g/dL (1.3-4.6) 12/11/24 21:10 Procalcitonin 0.04 ng/mL (0-0.5) 12/11/24 21:10 Other Data Patient seen with SHELTON Cortez. Agree with his treatment plan. Discussed with the patient advanced directive and the patient agreed to DNR/DNI at this time. He would still like to have treatment but would not like to have any machines breathing for him or resuscitation of his heart if it were to stop. Labs, vital signs, radiology and all other pertinent aspects of this case were reviewed with the PA. Discharge Plan Discharge Patient Disposition: Admitted As Inpatient Admit Provider: Fred Raman Clinical Impression: Bacterial pneumonia, History of lung cancer, Acute hypoxic respiratory failure Condition: Stable Coding Level of Care Code ED [employer]ar[employer] Supervisor for Trae San
[2024-12-11] MEDS: HYDROmorphone 0.5 MG/0.5 ML INJ 1 MG IVP (22:13)
[2024-12-11] MEDS: piperacillin-tazobactam 3.375 GM in sodium chloride 0.9% (plus) 50 ML IV (22:16)
[2024-12-11] MEDS: VANCOMYCIN ADD-Vantage 1,000 MG in 0.9% NaCl ADD-Vantage 250 ML 250 MG IV (22:20)
--- NOTE | 2024-12-11 22:49 | P.HP_ITS ---
Providers/Chief Complaint 2 Chief Complaint: left pain under breast History of Present Illness Will Loza is a 79 year old male with a past medical history significant for lung cancer status post right upper lobe lobectomy, COPD/emphysema, stroke, hypertension, deep vein thrombosis, rheumatoid arthritis, and multiple other comorbidities who presents to the emergency department with left-sided chest pain. Patient reports onset about 2 hours prior to arrival to the emergency department. Endorses associated shortness of breath and chronic cough. He reports he was in his usual state of health for most the day until symptoms occurred. He was outside doing yard work earlier today. He describes locations of pain as left-sided. Reports deep breathing worsens the pain. He follows with a rough planer tender in [place]. They report his exercise tolerance is very poor due to significant dyspnea on exertion at baseline. They report his rough planer tender states that his shortness of breath is likely cardiac and not pulmonary in nature. They report he has been referred to a sausage mixer but has not established care yet. Family report his lobectomy and cancer treatment was around [id number]. They report that he has recently been found to have a new left sided lung mass for which his rough planer tender is arranging a biopsy. The emergency department, patient was reportedly hypoxic per ED provider. He is requiring new oxygen requirement. Family reports he is not currently on oxygen at home. Labs show leukocytosis and lactic acidosis. Chest CT showed new airspace disease in the left lower lobe and inferior segment of the lingula concerning for acute bacterial pneumonia. Of note, family also reports recent diagnosis of ocular shingles. They report he is on prednisone and antiviral for this. Review of Systems 2 Narrative: A complete review of systems was obtained and is negative except as stated in HPI. Medications/Allergies Home Medications ?Medication ?Instructions ?Recorded ?Confirmed ?Last Taken ?Type apixaban 5 mg tablet (Eliquis) 5 mg PO BID@08/1709/15/24 09/17/20 History budesonide-formoterol HFA 160 2 puff inhalation BID@08/17/20 09/15/24 09/17/20 History mcg-4.5 mcg/actuation aerosol inhaler (Symbicort) propranolol 20 mg tablet 20 mg PO BID@08/17/20 09/15/24 09/17/20 History tiotropium bromide 2.5 2 puff inhalation DAILY@09 1 09/15/24 09/17/20 History mcg/actuation mist for inhalation (Spiriva Respimat) vitamins A,C,P-sxit-kkakmz 4,296 1 cap PO DAILY@09 09/15/24 09/17/20 History mcg-226 mg-90 mg capsule albuterol sulfate 90 mcg/actuation 1 inh inhalation Q6 H PRN shortness 08/19/20 09/15/24 Unknown Rx aerosol inhaler of breath or wheezing #18 gr ams famotidine 20 mg tablet 20 mg PO DAILY PRN 12/20/20 09/15/24 Unknown History prednisone 10 mg tablet See Rx Instructions PO .COMP COLLETTE 11/06/21 09/15/24 Unknown Rx PRN joint pain #30 tabs albuterol sulfate 2.5 mg/3 mL 2.5 mg (3 mL) inhalation QID PRN 11/14/21 09/15/24 Unknown Rx (0.083 %) solution for nebulization shortness of breat h or wheezing #75 mL ondansetron 4 mg disintegrating 4 mg PO Q6H PRN nausea and 12/14/22 09/15/24 Unknown Rx tablet vomiting #14 tabs tamsulosin 0.4 mg capsule (Flomax) 0.4 mg PO DAILY #5 caps 12/14/22 09/15/24 Unknown Rx folic acid 1 mg tablet 2 mg (2 x 1 mg) PO DAILY #18 0 tabs 11/26/23 09/15/24 Unknown Rx methotrexate sodium 2.5 mg tablet See Rx Instructions PO .week 11/26/23 09/15/24 Unknown Rx Rheumatoid Arthritis #150 tabs rosuvastatin 20 mg tablet 20 mg PO DAILY #30 tabs 08/2009/15/24 Unknown Rx prednisolone acetate 1 % eye 1 drp ophthalmic (eye) QI D 7 days 12/09/24 Unknown Rx drops,suspension #10 mL prednisone 20 mg tablet 60 mg (3 x 20 mg) PO DAILY # 20 tabs 12/09/24 Unknown Rx valacyclovir 1 gram tablet 1,000 mg PO Q12H 10 days #2 0 tabs 12/09/24 Unknown Rx Allergies Allergy/AdvReac Type Severity Reaction Status Date / Time No Known Allergies Allergy Verified 12/11/24 20:41 PFSH Acute 2 PFSH: Medical History (Updated 12/11/24 @ 23:12 by Fred Raman MD) Lung cancer Immunization counseling High risk medication use History of DVT of lower extremity History of lung cancer in adulthood Right leg swelling Seropositive rheumatoid arthritis of multiple sites CVA (cerebral vascular accident) Recurrent deep vein thrombosis (DVT) Anticoagulation adequate Rheumatoid arthritis Hypertension COPD (chronic obstructive pulmonary disease) Surgical History History of lobectomy of lung History of lobectomy of lung Right upper lobe due to lung cancer Family History Other CAD (coronary artery disease) Social History Smoking and tobacco/nicotine status: former use of tobacco/nicotine Alcohol intake: never Vitals/I&O/Wt Last Vital Signs Temp 98.0 F 12/11/24 20:37 Pulse 93 12/11/24 21:55 Resp 24 H 12/11/24 21:55 BP 174/86 12/11/24 21:55 Pulse Ox 93 12/11/24 21:55 O2 Del Method Nasal Cannula 12/11/24 21:55 O2 Flow Rate 2 12/11/24 21:55 Weight last 48 hrs Weight 62.142 kg Physical Exam 2 Narrative: General: Patient is awake. Chronically ill-appearing. Tachypneic. Head: Normocephalic. Atraumatic. EOM intact. Dry mucous membranes. Neck: No JVD. Cardiovascular: RRR. No gallops. No murmurs. Lungs: Tachypneic. Increased work of breathing. Accessory muscles. Moderate air movement. No crackles. On supplemental support. Skin: No jaundice. No rashes. Abdomen: Normal bowel sounds, abdomen soft and nontender. Genito Urinary: Genital exam not performed since complaints not related. Rectal: Rectal exam not performed since no symptoms indicated blood loss. Extremities: No cyanosis or clubbing. Musculoskeletal: No swollen or erythematous joints. Neurological: Moves all 4 extremities. No myoclonus. Data 12/11/24 21:10 12/11/24 21:10 A&P Assessment and plan (1) Lactic acidosis: (2) Leukocytosis: (3) Pneumonia: (4) History of DVT of lower extremity: (5) Seropositive rheumatoid arthritis of multiple sites: (6) COPD (chronic obstructive pulmonary disease): (7) History of lobectomy of lung: (8) Acute hypoxic respiratory failure: (9) Azotemia: (10) Lung cancer: (11) Hypertension: Plan Severe sepsis Community-acquired pneumonia Acute hypoxic respiratory failure - SIRS: Leukocytosis, tachypnea, tachycardia - Source: Pneumonia, community-acquired, bilateral - Endorgan damage: Acute hypoxic respiratory failure - Lactic acidosis noted - Blood cultures - Status post 1 L NS bolus in ED, hold off on full 30 mL/kg due to respiratory failure and risk for pulmonary edema - Request sputum culture, bacterial antigens - Check inflammatory markers - Status post Zosyn and vancomycin in ED - MRSA screening requested - Start cefepime and linezolid Acute COPD exacerbation - Start IV steroids - Pulmicort nebs - Schedule breathing treatments Reported ocular shingles - Hold prednisone as patient is on IV Solu-Medrol - Continue valacyclovir History of lung cancer - Family reports recent abnormal imaging concerning for possible recurrence - Agree with outpatient biopsy as arranged through his rough planer tender Rheumatoid arthritis - Continue home medications History of DVT - Continue DOAC Hypertension - Continue home medications - IV hydralazine as needed History of stroke - Continue staatin DVT prophylaxis: Apixaban CODE STATUS: AND PDMP PDMP Reviewed: Not Reviewed Attestations 2 Medical Necessity Statement*: Patient presents with chest pain respiratory distress, found to have severe sepsis secondary secondary to community acquired pneumonia with respiratory failure with expected hospitalization to cross two midnights. Coding Level of Care Code Acute Code for [facility] Diagnoses Lactic acidosis E87.20 Leukocytosis D72.829 Pneumonia J18.9 History of DVT of lower extremity Z86.718 Seropositive rheumatoid arthritis of multiple sites M05.79 COPD (chronic obstructive pulmonary disease) J44.9 History of lobectomy of lung Z90.2 Acute hypoxic respiratory failure J96.01 Azotemia R79.89 Lung cancer C34.90 Hypertension I10
--- NOTE | 2024-12-11 22:50 | ECG_ITS ---
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
[2024-12-11 23:05] LABS: Reflex Lactate Order REFLEX LACTIC ORDERD
[2024-12-11] MEDS: sodium chloride 0.9% 1,000 ML 999 ML IV (23:20)
[2024-12-11 23:29] LABS: Troponin 5 2HR 11.67 ng/L (0-15)
[2024-12-11 23:31] LABS: Troponin 5 2HR Delta -1.33 ABS# (0-10)
[2024-12-12] VITALS (43 sets, daily range): BP systolic 97–139; BP diastolic 50–71; PULSE 62–112; RESP 6–30; TEMP 36.6–38.1; O2SAT 90–99
[2024-12-12 00:08] LABS: Lactic Acid level (Lactate) 1.8 mmol/L (0.5-2.2)
[2024-12-12] MEDS: methylPREDNISolone sod succ 40 mg/mL INJ IVP ×4 (02:02→19:55)
[2024-12-12] MEDS: cefepime 2,000 mg SDV 2000 MG IVP ×3 (02:02→19:55)
[2024-12-12] MEDS: linezolid premix 600 MG/300 ML PREMIX 300 MG IV ×2 (02:03→14:24)
[2024-12-12] MEDS: ipratropium-albuterol 3 mL Neb INHALATION ×6 (03:13→23:48)
[2024-12-12 03:53] LABS: MRSA PCR OZH (swab) NOT DETECTED (Negative)
--- NOTE | 2024-12-12 03:57 | ECG_ITS ---
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
[2024-12-12 04:28] LABS: Basophils % 0.2 %; Lymphocytes # 0.4 10^3/uL (0.8-4.8); Lymphocytes % 2.3 %; Mean Corpuscular HGB Conc 31.3 g/dL (30-55); Mean Corpuscular Hemoglobin 31.3 pg (27-33); Mean Platelet Volume 10.3 fL (7.4-10.4); Monocytes # 0.2 10^3/uL (0.2-0.9); Monocytes % 1.1 %; Neutrophils # 17.66 10^3/uL (1.8-7.7); Neutrophils % 95.4 %; Nucleated Red Blood Cells % 0 %; Platelet Count 194 10^3/cmm (157-399); Red Cell Distribution Width 15.7 % (12.1-15.1); White Blood Count 18.52 10^3/uL (3.29-11.43)
[2024-12-12 04:51] LABS: C Reactive Protein 34.6 mg/L (0.0-4.9)
[2024-12-12 04:56] LABS: Anion Gap 14.2 (5-19); Blood Urea Nitrogen 29 mg/dL (8-23); Calcium 8.2 mg/dL (8.5-10.5); Carbon Dioxide 24 mmol/L (22-29); Chloride 104 mmol/L (98-107); Creatinine Clr Calc Pharmacy 57.3844; Glucose 116 mg/dL (65-115); Magnesium 1.8 mg/dL (1.7-2.3); Osmolality Calculated 293 mOsm/kg (285-295); Phosphorus 2.4 mg/dL (2.5-4.5); Potassium 4.2 mmol/L (3.5-5.1); Sodium 138 mmol/L (136-145)
[2024-12-12] MEDS: budesonide 0.5 mg/2 mL Neb INHALATION ×2 (07:41→19:56)
[2024-12-12] MEDS: folic acid 1 mg Tablet 2 MG PO (09:23)
[2024-12-12] MEDS: valACYclovir 1,000 mg Tablet 1000 MG PO ×2 (09:23→19:54)
[2024-12-12] MEDS: apixaban 5 mg Tablet PO ×2 (09:24→19:55)
[2024-12-12] MEDS: tamsulosin 0.4 mg Capsule PO (09:24)
--- NOTE | 2024-12-12 11:13 | PM.PN ---
Subjective Subjective: No acute overnight events noted. Seen him at bedside this morning. Reports feeling better as compared to admission. He further states that he has an ongoing issue with mucus production and has been taking Mucomyst at home. Does not use oxygen at home. Medications: Reviewed: Yes Vitals/I&O/Wt Last Vital Signs Temp 99.0 F 12/12/24 04:00 Pulse 64 12/12/24 11:09 Resp 22 H 12/12/24 11:09 BP 123/68 12/12/24 11:00 Pulse Ox 97 12/12/24 11:09 O2 Del Method Nasal Cannula 12/12/24 11:09 O2 Flow Rate 3 12/12/24 11:09 FiO2 10 12/12/24 02:15 12/11/24 12/12/24 12/12/24 22:59 06:59 14:59 Intake Total 540 / 540 1500 / 1500 Output Total 500 / 500 Balance 540 / 540 1000 / 1000 Weight last 48 hrs Weight 64 kg Weight 64 kg Weight 64 kg Weight 62.142 kg Physical Exam Narrative: General: Patient is awake. Chronically ill-appearing. Tachypneic. Head: Normocephalic. Atraumatic. EOM intact. Dry mucous membranes. Neck: No JVD. Cardiovascular: RRR. No gallops. No murmurs. Lungs: Air entry equal on both sides, bilateral coarse rhonchi present. On nasal cannula at 3 L/min. Skin: No jaundice. No rashes. Abdomen: Normal bowel sounds, abdomen soft and nontender. Extremities-no edema noted bilateral lower extremity Musculoskeletal: No swollen or erythematous joints. Neurological: Moves all 4 extremities. No myoclonus. Data 12/12/24 03:47 12/12/24 03:47 A&P Assessment and plan (1) Lactic acidosis: (2) Leukocytosis: (3) Pneumonia: (4) History of DVT of lower extremity: (5) Seropositive rheumatoid arthritis of multiple sites: (6) COPD (chronic obstructive pulmonary disease): (7) History of lobectomy of lung: (8) Acute hypoxic respiratory failure: (9) Azotemia: (10) Lung cancer: (11) Hypertension: Plan Will Loza is a 79 year old male with a past medical history significant for lung cancer status post right upper lobe lobectomy, COPD/emphysema, stroke, hypertension, deep vein thrombosis, rheumatoid arthritis, and multiple other comorbidities who presents to the emergency department with left-sided chest pain. #Severe sepsis Community-acquired pneumonia Acute hypoxic respiratory failure - SIRS: Leukocytosis, tachypnea, tachycardia - Source: Pneumonia, community-acquired, bilateral - Endorgan damage: Acute hypoxic respiratory failure - Lactic acidosis noted - Blood cultures - Status post 1 L NS bolus in ED, hold off on full 30 mL/kg due to respiratory failure and risk for pulmonary edema - Request sputum culture, bacterial antigens - Check inflammatory markers - Status post Zosyn and vancomycin in ED - MRSA screening requested - Start cefepime and linezolid #Acute COPD exacerbation - Start IV steroids - Pulmicort nebs - Schedule breathing treatments #Reported ocular shingles - Hold prednisone as patient is on IV Solu-Medrol - Continue valacyclovir #History of lung cancer - Family reports recent abnormal imaging concerning for possible recurrence - Agree with outpatient biopsy as arranged through his surgical clinical reviewer #Rheumatoid arthritis - Continue home medications #History of DVT - Continue DOAC #Hypertension - Continue home medications - IV hydralazine as needed #History of stroke - Continue statin DVT prophylaxis: Apixaban CODE STATUS: AND 12/12/24 He is doing well today. Tachycardia and tachypnea resolved MRSA negative WBC count trending down to 22.2-->18.5 Hemoglobin 12.8-10 Saturating 95% on 3 L nasal cannula Lactic acid normal at 1.8 Check respiratory panel Will continue IV cefepime and Zyvox for now. PDMP PDMP Reviewed: Not Reviewed Attestations Medical Necessity Statement*: Patient presents with chest pain respiratory distress, found to have severe sepsis secondary secondary to community acquired pneumonia with respiratory failure which is resolving with expected hospitalization to cross two midnights. Time Spent in Patient Care: 20minutes Coding Level of Care Code Acute Code for [facility] Diagnoses Lactic acidosis E87.20 Leukocytosis D72.829 Pneumonia J18.9 History of DVT of lower extremity Z86.718 Seropositive rheumatoid arthritis of multiple sites M05.79 COPD (chronic obstructive pulmonary disease) J44.9 History of lobectomy of lung Z90.2 Acute hypoxic respiratory failure J96.01 Azotemia R79.89 Lung cancer C34.90 Hypertension I10 Time Spent (min) 20
--- NOTE | 2024-12-12 11:34 | PC.NURSE ---
dr Mcqueen requested that we hold am eye gtt until we talk with
[2024-12-12 11:36] LABS: Adenovirus Not Detected (NOT DETECT); Chlamydia Pneumoniae Not Detected (NOT DETECT); Coronavirus 229E,HKU1,NL63,OC4 Not Detected (NOT DETECT); Human Metapneumovirus Not Detected (NOT DETECT); Human Rhinovirus/Enterovirus Not Detected (NOT DETECT); Influenza A Not Detected (NOT DETECT); Influenza A H1 Not Detected (NOT DETECT); Influenza A H1-2009 Not Detected (NOT DETECT); Influenza A H3 Not Detected (NOT DETECT); Influenza B Not Detected (NOT DETECT); Mycoplasma Pneumoniae Not Detected (NOT DETECT); Parainfluenza Virus Type 1 Not Detected (NOT DETECT); Parainfluenza Virus Type 2 Not Detected (NOT DETECT); Parainfluenza Virus Type 3 Not Detected (NOT DETECT); Parainfluenza Virus Type 4 Not Detected (NOT DETECT); Respiratory Syncytial Virus A Not Detected (NOT DETECT); Respiratory Syncytial Virus B Not Detected (NOT DETECT); SARS-COV-2 Not Detected (NOT DETECT)
--- NOTE | 2024-12-12 13:43 | PM.PN ---
Subjective Subjective: Overall breathing better Medications: Reviewed: Yes Vitals/I&O/Wt Last Vital Signs Temp 98 F 12/12/24 12:00 Pulse 65 12/12/24 12:00 Resp 25 H 12/12/24 12:00 BP 119/63 12/12/24 12:00 Pulse Ox 99 12/12/24 12:00 O2 Del Method Nasal Cannula 12/12/24 11:09 O2 Flow Rate 3 12/12/24 11:09 FiO2 10 12/12/24 02:15 12/11/24 12/12/24 12/12/24 22:59 06:59 14:59 Intake Total 540 / 540 1850 / 1850 Output Total 1200 / 1200 Balance 540 / 540 650 / 650 Weight last 48 hrs Weight 141 lb 1.533 oz Weight 141 lb 1.533 oz Weight 141 lb 1.533 oz Weight 137 lb Data 12/12/24 03:47 12/12/24 03:47 A&P PDMP PDMP Reviewed: Not Reviewed Coding Level of Care Code Acute Code for [facility]
[2024-12-12] MEDS: prednisoLONE 1% Op Susp 5 mL Btl 1 DROP EYEAFF ×2 (14:31→17:31)
[2024-12-12] MEDS: atorvastatin 40 mg Tablet PO (19:54)
[2024-12-12] MEDS: guaiFENesin 600 mg Tablet 1200 MG PO (19:54)
[2024-12-12] MEDS: benzonatate 100 mg Capsule 200 MG PO (19:55)
[2024-12-12] MEDS: acetaminophen 325 mg Tablet 650 MG PO (19:55)
[2024-12-13] VITALS (21 sets, daily range): BP systolic 110–152; BP diastolic 56–75; PULSE 60–94; RESP 16–28; TEMP 36.1–36.7; O2SAT 90–98
[2024-12-13] MEDS: linezolid premix 600 MG/300 ML PREMIX 300 MG IV ×2 (02:27→14:38)
[2024-12-13] MEDS: methylPREDNISolone sod succ 40 mg/mL INJ IVP ×4 (02:27→22:00)
[2024-12-13 04:20] LABS: Basophils % 0.1 %; Hematocrit 31.3 % (37-53); Lymphocytes # 0.4 10^3/uL (0.8-4.8); Lymphocytes % 2.5 %; Mean Corpuscular HGB Conc 31.9 g/dL (30-55); Mean Corpuscular Hemoglobin 31.7 pg (27-33); Mean Corpuscular Volume 99.4 fl (82-101); Mean Platelet Volume 10.5 fL (7.4-10.4); Monocytes # 0.4 10^3/uL (0.2-0.9); Monocytes % 2.5 %; Neutrophils # 14.75 10^3/uL (1.8-7.7); Neutrophils % 90.9 %; Nucleated Red Blood Cells % 0 %; Platelet Count 188 10^3/cmm (157-399); Red Blood Count 3.15 10^6/uL (3.85-5.65); Red Cell Distribution Width 15.6 % (12.1-15.1); White Blood Count 16.22 10^3/uL (3.29-11.43)
[2024-12-13 04:36] LABS: Anion Gap 13.4 (5-19); Blood Urea Nitrogen 22 mg/dL (8-23); Calcium 8.9 mg/dL (8.5-10.5); Carbon Dioxide 27 mmol/L (22-29); Chloride 102 mmol/L (98-107); Creatinine Clr Calc Pharmacy 57.3844; Glucose 175 mg/dL (65-115); Osmolality Calculated 294 mOsm/kg (285-295); Potassium 4.4 mmol/L (3.5-5.1); Sodium 138 mmol/L (136-145)
[2024-12-13] MEDS: ipratropium-albuterol 3 mL Neb INHALATION ×6 (04:40→23:01)
[2024-12-13] MEDS: folic acid 1 mg Tablet 2 MG PO (08:33)
[2024-12-13] MEDS: tamsulosin 0.4 mg Capsule PO (08:33)
[2024-12-13] MEDS: water for injection-sterile 10 ML 1000 ML (08:33)
[2024-12-13] MEDS: valACYclovir 1,000 mg Tablet 1000 MG PO ×2 (08:33→21:59)
[2024-12-13] MEDS: cefepime 2,000 mg SDV 2000 MG IVP ×2 (08:34→22:00)
[2024-12-13] MEDS: apixaban 5 mg Tablet PO ×2 (08:35→22:00)
[2024-12-13] MEDS: budesonide 0.5 mg/2 mL Neb INHALATION ×2 (08:44→20:25)
--- NOTE | 2024-12-13 10:47 | PC.NURSE ---
report given transfer to room 277
--- NOTE | 2024-12-13 10:49 | PC.NURSE ---
Patient settled into room with call light in reach and orientation to surroundings.
--- NOTE | 2024-12-13 11:50 | P.PN_ITS ---
Subjective 2 Subjective: No acute overnight events noted. Denies any new complaints. Reports feeling better this morning and wants to go home. Medications: Reviewed: Yes Vitals/I&O/Wt Last Vital Signs Temp 97.6 F 12/13/24 11:32 Pulse 64 12/13/24 11:32 Resp 17 12/13/24 11:32 BP 130/68 12/13/24 11:32 Pulse Ox 94 12/13/24 11:32 O2 Del Method Room Air 12/13/24 11:32 O2 Flow Rate 2 12/13/24 04:35 FiO2 10 12/12/24 02:15 12/12/24 12/13/24 12/13/24 22:59 06:59 14:59 Intake Total 770 / 2620 780 / 3400 310 / 310 Output Total 1000 / 2200 250 / 2450 600 / 600 Balance -230 / 420 530 / 950 -290 / -290 Weight last 48 hrs Weight 64 kg Weight 64 kg Weight 64 kg Weight 62.142 kg Physical Exam 2 Narrative: General: Patient is awake. Chronically ill-appearing. Tachypneic. Head: Normocephalic. Atraumatic. EOM intact. Dry mucous membranes. Neck: No JVD. Cardiovascular: RRR. No gallops. No murmurs. Lungs: Air entry equal on both sides, bilateral coarse rhonchi present but improved On room air Skin: No jaundice. No rashes. Abdomen: Normal bowel sounds, abdomen soft and nontender. Extremities-no edema noted bilateral lower extremity Musculoskeletal: No swollen or erythematous joints. Neurological: Moves all 4 extremities. No myoclonus. Data 12/13/24 03:13 12/13/24 03:13 Micro: Microbiology 12/12/24 07:20 Bacterial Antigens - Final Urine,Voided A&P Assessment and plan (1) Lactic acidosis: (2) Leukocytosis: (3) Pneumonia: (4) History of DVT of lower extremity: (5) Seropositive rheumatoid arthritis of multiple sites: (6) COPD (chronic obstructive pulmonary disease): (7) History of lobectomy of lung: (8) Acute hypoxic respiratory failure: (9) Azotemia: (10) Lung cancer: (11) Hypertension: Plan Will Loza is a 79 year old male with a past medical history significant for lung cancer status post right upper lobe lobectomy, COPD/emphysema, stroke, hypertension, deep vein thrombosis, rheumatoid arthritis, and multiple other comorbidities who presents to the emergency department with left-sided chest pain. #Severe sepsis Community-acquired pneumonia Acute hypoxic respiratory failure - SIRS: Leukocytosis, tachypnea, tachycardia - Source: Pneumonia, community-acquired, bilateral - Endorgan damage: Acute hypoxic respiratory failure - Lactic acidosis noted - Blood cultures - Status post 1 L NS bolus in ED, hold off on full 30 mL/kg due to respiratory failure and risk for pulmonary edema - Request sputum culture, bacterial antigens - Check inflammatory markers - Status post Zosyn and vancomycin in ED - MRSA screening requested - Start cefepime and linezolid #Acute COPD exacerbation - Start IV steroids - Pulmicort nebs - Schedule breathing treatments #Reported ocular shingles - Hold prednisone as patient is on IV Solu-Medrol - Continue valacyclovir #History of lung cancer - Family reports recent abnormal imaging concerning for possible recurrence - Agree with outpatient biopsy as arranged through his home sales service professional #Rheumatoid arthritis - Continue home medications #History of DVT - Continue DOAC #Hypertension - Continue home medications - IV hydralazine as needed #History of stroke - Continue statin DVT prophylaxis: Apixaban CODE STATUS: AND 12/12/24 He is doing well today. Tachycardia and tachypnea resolved MRSA negative WBC count trending down to 22.2-->18.5 Hemoglobin 12.8-10 Saturating 95% on 3 L nasal cannula Lactic acid normal at 1.8 Check respiratory panel Will continue IV cefepime and Zyvox for now. 12/13/24 He is clinically improving. WBC trending down to 16.2. Hemoglobin has been stable. Will continue IV antibiotics cefepime and Zyvox for now Will taper off oxygen. Will transfer to [facility] for further care Anticipating discharge on Saturday. PDMP PDMP Reviewed: Not Reviewed Attestations 2 Medical Necessity Statement*: Need continued hospitalization for management of pneumonia with IV antibiotics and supplemental oxygen. Anticipating discharge in 24 to 48 hours. Time Spent in Patient Care: 20minutes Coding Level of Care Code Acute Code for [facility] Diagnoses Lactic acidosis E87.20 Leukocytosis D72.829 Pneumonia J18.9 History of DVT of lower extremity Z86.718 Seropositive rheumatoid arthritis of multiple sites M05.79 COPD (chronic obstructive pulmonary disease) J44.9 History of lobectomy of lung Z90.2 Acute hypoxic respiratory failure J96.01 Azotemia R79.89 Lung cancer C34.90 Hypertension I10 Time Spent (min) 20
--- NOTE | 2024-12-13 15:31 | PC.SOCIAL ---
Patient has oxygen from [employer] at home that he received in 2020 after his hospitalization from [facility]. He states his dried fruit washer has said he doesn't need it anymore but they never contacted him to pick it up. He also states
--- NOTE | 2024-12-13 15:54 | PC.SOCIAL ---
[facility]. Patient is [facility], but if a Oxygen order is needed he will needed a copy for his [facility] Flight thing.
[2024-12-13] MEDS: atorvastatin 40 mg Tablet PO (22:00)
[2024-12-14] VITALS (15 sets, daily range): BP systolic 124–142; BP diastolic 66–79; PULSE 84–101; RESP 16–20; TEMP 36.3–36.7; O2SAT 86–98
[2024-12-14] MEDS: methylPREDNISolone sod succ 40 mg/mL INJ IVP ×3 (02:05→17:58)
[2024-12-14] MEDS: linezolid premix 600 MG/300 ML PREMIX 300 MG IV ×2 (02:05→13:36)
[2024-12-14] MEDS: ipratropium-albuterol 3 mL Neb INHALATION ×5 (04:38→19:46)
[2024-12-14 06:11] LABS: Basophils % 0.1 %; Hematocrit 30.3 % (37-53); Lymphocytes # 0.3 10^3/uL (0.8-4.8); Lymphocytes % 1.7 %; Mean Corpuscular HGB Conc 32.7 g/dL (30-55); Mean Corpuscular Hemoglobin 32.4 pg (27-33); Mean Platelet Volume 10.6 fL (7.4-10.4); Monocytes # 0.4 10^3/uL (0.2-0.9); Monocytes % 2.5 %; Neutrophils # 14.52 10^3/uL (1.8-7.7); Neutrophils % 94.9 %; Nucleated Red Blood Cells % 0 %; Platelet Count 196 10^3/cmm (157-399); Red Blood Count 3.06 10^6/uL (3.85-5.65); Red Cell Distribution Width 15.7 % (12.1-15.1); White Blood Count 15.29 10^3/uL (3.29-11.43)
[2024-12-14 06:37] LABS: Blood Urea Nitrogen 19 mg/dL (8-23); Calcium 8.9 mg/dL (8.5-10.5); Carbon Dioxide 25 mmol/L (22-29); Chloride 103 mmol/L (98-107); Glucose 212 mg/dL (65-115); Osmolality Calculated 297 mOsm/kg (285-295); Sodium 139 mmol/L (136-145)
[2024-12-14] MEDS: budesonide 0.5 mg/2 mL Neb INHALATION ×2 (08:17→19:46)
[2024-12-14] MEDS: cefepime 2,000 mg SDV 2000 MG IVP ×2 (08:20→20:58)
[2024-12-14] MEDS: tamsulosin 0.4 mg Capsule PO (08:20)
[2024-12-14] MEDS: valACYclovir 1,000 mg Tablet 1000 MG PO ×2 (08:20→20:58)
[2024-12-14] MEDS: folic acid 1 mg Tablet 2 MG PO (08:21)
[2024-12-14] MEDS: apixaban 5 mg Tablet PO ×2 (08:21→20:58)
--- NOTE | 2024-12-14 09:42 | PC.CHAP ---
Pastoral Care Encounter/Spiritual Assessment Type of Contact [] Declined communication technician visit [] Patient/Family/Request visit [] Outpatient visit [] Follow-up visit [] Physician referral [] Code/Alert [x] Routine visit [] Staff referral [] Actively dying [] Patient sleeping [] Family support [] [] Out of room [] Palliative care [] [] Receiving care in room [] Pre-surgical visit [] Trauma [] Long length of stay [] ICU visit [] Other: Relational/Emotional Strength [] Patient feels connected with others/family/visitors/staff [] Distress [] Loneliness/isolation [] Abandonment Spirituality of Patient [x] Person of Becca [] Attends Buddhism of their [place] [x] Believes in Prayer [] Reads Bible or Yarsanism materials [] There are Spiritual issues to be addressed Standards Analyst Interventions [x] Prayer [x] Active listening [] Non-anxious presence [] Spiritual/emotional support [] Crisis/trauma care [] Spiritual counseling [] Bereavement support [] Provided bereavement packet [x] Provided Bible/devotional materials [] Provided toy/stuffed animal, coloring book to patient or family member [] Provided Communion [] Anointing/[place] [] Salvation [x] Completed spiritual assessment [] Other: Impact on Illness or Injury [] Angry [] Fearful [] Anxious [] Often cries [] Exhaustion [] Unable to work [] Unable to attend yazidism [] Unable to walk/stand [] Unable to read [] Unable to drive [] Unable to eat/drink [] Unable to sleep [] Unable to be with family [] Patient intubated [] Other: Summary Time spent with patient 10 min
--- NOTE | 2024-12-14 15:43 | P.PN_ITS ---
Subjective 2 Subjective: No acute events overnight per hospital course and labs appreciated. Patient states she is feeling a lot better. Denies any nausea, vomiting, headache. Currently on room air. Medications: Reviewed: Yes Vitals/I&O/Wt Last Vital Signs Temp 97.5 F L 12/14/24 11:48 Pulse 92 12/14/24 15:23 Resp 18 12/14/24 15:15 BP 141/71 12/14/24 11:48 Pulse Ox 98 12/14/24 15:15 O2 Del Method Room Air 12/14/24 15:15 O2 Flow Rate 2 12/14/24 11:19 FiO2 10 12/12/24 02:15 12/14/24 12/14/24 12/14/24 06:59 14:59 22:59 Intake Total 300 / 1630 1020 / 1020 Balance 300 / 1030 1020 / 1020 Weight last 48 hrs Weight 66.542 kg Physical Exam 2 Narrative: General: Patient is awake. Chronically ill-appearing. Tachypneic. Head: Normocephalic. Atraumatic. EOM intact. Dry mucous membranes. Neck: No JVD. Cardiovascular: RRR. No gallops. No murmurs. Lungs: Air entry equal on both sides, bilateral coarse rhonchi present but improved On room air Skin: No jaundice. No rashes. Abdomen: Normal bowel sounds, abdomen soft and nontender. Extremities-no edema noted bilateral lower extremity Musculoskeletal: No swollen or erythematous joints. Neurological: Moves all 4 extremities. No myoclonus. Data 12/14/24 05:18 12/14/24 05:18 A&P Assessment and plan (1) Lactic acidosis: (2) Leukocytosis: (3) Pneumonia: (4) History of DVT of lower extremity: (5) Seropositive rheumatoid arthritis of multiple sites: (6) COPD (chronic obstructive pulmonary disease): (7) History of lobectomy of lung: (8) Acute hypoxic respiratory failure: (9) Azotemia: (10) Lung cancer: (11) Hypertension: Plan Will Loza is a 79 year old male with a past medical history significant for lung cancer status post right upper lobe lobectomy, COPD/emphysema, stroke, hypertension, deep vein thrombosis, rheumatoid arthritis, and multiple other comorbidities who presents to the emergency department with left-sided chest pain. #Severe sepsis Community-acquired pneumonia Acute hypoxic respiratory failure - SIRS: Leukocytosis, tachypnea, tachycardia - Source: Pneumonia, community-acquired, bilateral - Endorgan damage: Acute hypoxic respiratory failure - Lactic acidosis noted - Blood cultures - Status post 1 L NS bolus in ED, hold off on full 30 mL/kg due to respiratory failure and risk for pulmonary edema - Request sputum culture, bacterial antigens - Check inflammatory markers - Status post Zosyn and vancomycin in ED - MRSA screening requested - Start cefepime and linezolid #Acute COPD exacerbation - Start IV steroids - Pulmicort nebs - Schedule breathing treatments #Reported ocular shingles - Hold prednisone as patient is on IV Solu-Medrol - Continue valacyclovir #History of lung cancer - Family reports recent abnormal imaging concerning for possible recurrence - Agree with outpatient biopsy as arranged through his environmental laboratory technician #Rheumatoid arthritis - Continue home medications #History of DVT - Continue DOAC #Hypertension - Continue home medications - IV hydralazine as needed #History of stroke - Continue statin DVT prophylaxis: Apixaban CODE STATUS: AND Plan for the day: Hypoxic respiratory failure is resolving. Oxygen supplementation keeping saturation of 88%. MRSA swab negative. Will D continue linezolid. Continue with cefepime for now. Follow-up sputum culture. Transition to oral antibiotics on discharge to finish a 5-day course. Wean Solu-Medrol to 40 mg twice daily. Discharge plan: Plan to discharge in next 24 hours to home on oral antibiotics and steroids for ocular shingles and valacyclovir. Check home O2 eval. PDMP PDMP Reviewed: Not Reviewed Attestations 2 Medical Necessity Statement*: Requires further hospitalization for management of hypoxia in setting of community-acquired pneumonia, COPD exacerbation in a patient with history of lung cancer post lobectomy. Diagnoses Lactic acidosis E87.20 Leukocytosis D72.829 Pneumonia J18.9 History of DVT of lower extremity Z86.718 Seropositive rheumatoid arthritis of multiple sites M05.79 COPD (chronic obstructive pulmonary disease) J44.9 History of lobectomy of lung Z90.2 Acute hypoxic respiratory failure J96.01 Azotemia R79.89 Lung cancer C34.90 Hypertension I10
[2024-12-14] MEDS: famotidine 20 mg Tablet PO (17:58)
[2024-12-14] MEDS: atorvastatin 40 mg Tablet PO (20:58)
[2024-12-15] VITALS (8 sets, daily range): BP systolic 134–158; BP diastolic 70–80; PULSE 78–88; RESP 16–18; TEMP 36.4–36.6; O2SAT 92–95
[2024-12-15] MEDS: budesonide 0.5 mg/2 mL Neb INHALATION (08:29)
[2024-12-15] MEDS: ipratropium-albuterol 3 mL Neb INHALATION ×2 (08:29→11:17)
[2024-12-15] MEDS: cefepime 2,000 mg SDV 2000 MG IVP (08:43)
[2024-12-15] MEDS: famotidine 20 mg Tablet PO (08:44)
[2024-12-15] MEDS: methylPREDNISolone sod succ 40 mg/mL INJ IVP (08:44)
[2024-12-15] MEDS: apixaban 5 mg Tablet PO (08:44)
[2024-12-15] MEDS: valACYclovir 1,000 mg Tablet 1000 MG PO (08:44)
[2024-12-15] MEDS: tamsulosin 0.4 mg Capsule PO (08:44)
[2024-12-15] MEDS: folic acid 1 mg Tablet 2 MG PO (08:44)
--- NOTE | 2024-12-15 11:08 | P.DS_ITS ---
Discharge Providers Date of Admission: 12/11/24 23:43 Date of Discharge: December 15, 2024 Attending Provider at Admission: Fred Raman MD Attending Provider at Discharge: Familia Spence MD Diagnoses at Discharge Discharge Diagnosis (1) Lactic acidosis: Status: Acute (2) Leukocytosis: Status: Acute (3) Pneumonia: Status: Acute (4) History of DVT of lower extremity: Status: Acute (5) Seropositive rheumatoid arthritis of multiple sites: Status: Acute (6) COPD (chronic obstructive pulmonary disease): Status: Acute (7) History of lobectomy of lung: Status: Acute (8) Acute hypoxic respiratory failure: Status: Acute (9) Azotemia: Status: Acute (10) Lung cancer: Status: Acute (11) Hypertension: Status: Acute Reason for Visit Reason for Visit: left pain under breast Brief History: History as per HPI: Will Loza is a 79 year old male with a past medical history significant f or lung cancer status post right upper lobe lobectomy, COPD/emphysema, stroke, hypertension, deep vein thrombosis, rheumatoid arthritis, and multiple other comorbidities who presents to the emergency department with left-sided chest pain. Patient reports onset about 2 hours prior to arrival to the emergency department. Endorses associated shortness of breath and chronic cough. He reports he was in his usual state of health for most the day until symptoms occurred. He was outside doing yard work earlier today. He describes locations of pain as left-sided. Reports deep breathing worsens the pain. He follows with a scale agent in [place]. They report his exercise tolerance is very poor due to significant dyspnea on exertion at baseline. They report his scale agent states that his shortness of breath is likely cardiac and not pulmonary in nature. They report he has been referred to a mycologist but has not established care yet. Family report his lobectomy and cancer treatment was around [id number]. They report that he has recently been found to have a new left sided lung mass for which his scale agent is arranging a biopsy. The emergency department, patient was reportedly hypoxic per ED provider. He is requiring new oxygen requirement. Family reports he is not currently on oxygen at home. Labs show leukocytosis and lactic acidosis. Chest CT showed new airspace disease in the left lower lobe and inferior segment of the lingula concerning for acute bacterial pneumonia. Of note, family also reports recent diagnosis of ocular shingles. They report he is on prednisone and antiviral for this. Hospital Course Hospital Course Patient was admitted to the hospital further evaluation and management of sepsis in setting of community-acquired pneumonia along with COPD exacerbation. He was started on broad-spectrum IV antibiotics, nebulization treatment along with IV s teroids. His oral steroids for ocular shingles were discontinued while being on IV steroids. He responded well to the treatment and has been on baseline room air for more than 24 hours both on rest and exertion. Home O2 evaluation was done prior to discharge. He is been discharged in medically stable condition on oral antibiotics for 5 more days, steroid taper and nebulization treatment. He is to follow with his primary care provider within next 1 week. All other home medications were continued. Physical Exam Narrative: General: Patient is awake. No acute distress, AO x 3.. Head: Normocephalic. Atraumatic. EOM intact. Dry mucous membranes. Neck: No JVD. Cardiovascular: RRR. No gallops. No murmurs. Lungs: Air entry equal on both sides, bilateral coarse rhonchi present but improved On room air Skin: No jaundice. No rashes. Abdomen: Normal bowel sounds, abdomen soft and nontender. Extremities-no edema noted bilateral lower extremity Musculoskeletal: No swollen or erythematous joints. Neurological: Moves all 4 extremities. No myoclonus. Discharge Data Studies Completed and Pending Completed Studies During Hospitalization Category Date Time Status CT chest w con* [id number] Stat Cat Scan 12/11/24 21:27 Completed XR chest 1V portable [id number] Urgent Exams 12/11/24 20:50 Completed Pending at discharge Category Date Time Status Sputum Culture and Gram Stain Routine Lab 12/12/24 01:16 Uncollected Radiology Impressions Chest X-Ray 12/11/24 20:50 IMPRESSION: Increasing peripheral opacity in the left lung. In the setting of emphysema, findings could reflect developing neoplasm. Differential diagnosis includes eosinophilic pneumonitis, or organizing pneumonia. Chest CT 12/11/24 21:27 IMPRESSION: 1. There is new airspace disease in the left lower lobe and inferior segment of the lingula most compelling for acute bacterial pneumonia. There is background emphysema and chronic bronchitis with multifocal endobronchial debris. 2. Additionally, there are nodular areas of increased attenuation in the periphery of the left upper lobe which could be additional sites of acute pneumonia although chronic eosinophilic pneumonia or organizing pneumonia could have this appearance. 3. There has been slight increase in the size of mediastinal lymph nodes which could be reactive or malignant. Microbiology 12/12/24 07:20 Urine,Voided Bacterial Antigens - Final Laboratory Results WBC 15.29 10^3/uL (3.29-11.43) H 12/14/24 05:18 RBC 3.06 10^6/uL (3.85-5.65) L 12/14/24 05:18 Hgb 9.90 g/dL (11.27-16.99) L 12/14/24 05:18 Hct 30.3 % (37-53) L 12/14/24 05:18 MCV 99.0 fl (82-101) 12/14/24 05:18 MCH 32.4 pg (27-33) 12/14/24 05:18 MCHC 32.7 g/dL (30-55) 12/14/24 05:18 RDW 15.7 % (12.1-15.1) H 12/14/24 05:18 Plt Count 196 10^3/cmm (157-399) 12/14/24 05:18 MPV 10.6 fL (7.4-10.4) H 12/14/24 05:18 Neut % (Auto) 94.9 % 12/14/24 05:18 Lymph % (Auto) 1.7 % 12/14/24 05:18 Wilbarger % (Auto) 2.5 % 12/14/24 05:18 Eos % (Auto) 0.0 % 12/14/24 05:18 Baso % (Auto) 0.1 % 12/14/24 05:18 Neut # (Auto) 14.52 10^3/uL (1.8-7.7) H 12/14/24 05:18 Lymph # (Auto) 0.3 10^3/uL (0.8-4.8) L 12/14/24 05:18 Wilbarger # (Auto) 0.4 10^3/uL (0.2-0.9) 12/14/24 05:18 Eos # (Auto) 0.0 10^3/uL (0.0-0.8) 12/14/24 05:18 Baso # (Auto) 0.0 10^3/uL (0.0-0.1) 12/14/24 05:18 Nucleated RBC % (auto) 0 % 12/14/24 05:18 Nucleated RBCs # 0.0 /100WBC 12/14/24 05:18 PT 14.60 SECONDS (12.1-14.9) 12/11/24 21:10 INR 1.06 (0.8-1.2) 12/11/24 21:10 APTT 27.3 SECONDS (23.9-36.7) 12/11/24 21:10 Specimen Type Arterial 12/11/24 21:42 Sample Site Brachial, left 12/11/24 21:42 ABG pH 7.47 (7.35-7.45) H 12/11/24 21:42 ABG pCO2 36.4 mmHg (35-45) 12/11/24 21:42 ABG pO2 53.8 mmHg (80.0-100.0) L 12/11/24 21:42 ABG HCO3 26.5 mmol/L (22-26) H 12/11/24 21:42 ABG O2 Saturation 89.8 12/11/24 21:42 ABG Base Excess 2.9 mmol/L (-2.0-2.0) H 12/11/24 21:42 Bryon Test N/a 12/11/24 21:42 A-a O2 Gradient 6.6 mmHg (5-10) 12/11/24 21:42 Hematocrit 38.1 % (42-52) L 12/11/24 21:42 Hgb O2 Saturation 89.0 % (95-100) L 12/11/24 21:42 Carboxyhemoglobin 1.1 %THgb (0.4-20.1) 12/11/24 21:42 Methemoglobin < 0.0 % (0.4-1.5) L 12/11/24 21:42 Total Hemoglobin 12.4 g/dL (14-18) L 12/11/24 21:42 Sodium 140.0 mmol/L (131-143) 12/11/24 21:42 Potassium 5.5 mmol/L (3.5-5.0) H 12/11/24 21:42 Glucose 93.0 mg/dL (70-115) 12/11/24 21:42 Ionized Calcium 1.2 mmol/L (1.1-1.4) 12/11/24 21:42 O2 Delivery Device Nc 12/11/24 21:42 O2 Liters/Min 3.0 % 12/11/24 21:42 Roving Or Yarn Color Checker ID Gregg 12/11/24 21:42 Sodium 139 mmol/L (136-145) 12/14/24 05:18 Potassium 4.0 mmol/L (3.5-5.1) 12/14/24 05:18 Chloride 103 mmol/L (98-107) 12/14/24 05:18 Carbon Dioxide 25 mmol/L (22-29) 12/14/24 05:18 Anion Gap 15.0 (5-19) 12/14/24 05:18 BUN 19 mg/dL (8-23) 12/14/24 05:18 Creatinine 1.0 mg/dL (0.7-1.2) 12/14/24 05:18 GFR Calculation Not Reportable 12/14/24 05:18 Glucose 212 mg/dL (65-115) H 12/14/24 05:18 Calculated Osmolality 297 mOsm/kg (285-295) H 12/14/24 05:18 Lactic Acid 2.6 mmol/L (0.5-2.2) H 12/11/24 21:10 Lactic Acid (Sepsis) 1.8 mmol/L (0.5-2.2) 12/11/24 23:42 Calcium 8.9 mg/dL (8.5-10.5) 12/14/24 05:18 Phosphorus 2.4 mg/dL (2.5-4.5) L 12/12/24 03:47 Magnesium 1.8 mg/dL (1.7-2.3) 12/12/24 03:47 Total Bilirubin 0.2 mg/dL (0.15-1.2) 12/11/24 21:10 AST 15 U/L (0-40) 12/11/24 21:10 ALT 8 U/L (0-41) 12/11/24 21:10 Alkaline Phosphatase 92 U/L (40-130) 12/11/24 21:10 Troponin T Baseline 13 ng/L (0-15) 12/11/24 21:10 Troponin T 120 Minute 11.67 ng/L (0-15) 12/11/24 23:08 Delta Troponin T -1.33 ABS# (0-10) L 12/11/24 23:08 C-Reactive Protein 34.6 mg/L (0.0-4.9) H 12/12/24 03:47 NT-Pro-B Natriuret Pep 436 pg/mL (0-450) 12/11/24 21:10 Total Protein 7.7 g/dL (6.6-8.7) 12/11/24 21:10 Albumin 4.2 g/dL (3.5-5.2) 12/11/24 21:10 Globulin 3.5 g/dL (1.3-4.6) 12/11/24 21:10 Procalcitonin 0.04 ng/mL (0-0.5) 12/11/24 21:10 Nasal MRSA (PCR) Not detected (Negative) 12/12/24 02:30 Adenovirus (PCR) Not detected (NOT DETECT) 12/12/24 09:30 C. pneumoniae DNA (PCR) Not detected (NOT DETECT) 12/12/24 09:30 Coronavirus 229E (PCR) Not detected (NOT DETECT) 12/12/24 09:30 Human Metapneumovir PCR Not detected (NOT DETECT) 12/12/24 09:30 Influenza A (H1) PCR Not detected (NOT DETECT) 12/12/24 09:30 Influ A (H1/09) PCR Not detected (NOT DETECT) 12/12/24 09:30 Influenza A (H3) PCR Not detected (NOT DETECT) 12/12/24 09:30 Influenza Type A (PCR) Not detected (NOT DETECT) 12/12/24 09:30 Influenza Type B (PCR) Not detected (NOT DETECT) 12/12/24 09:30 M. pneumoniae (PCR) Not detected (NOT DETECT) 12/12/24 09:30 Parainfluenza 1 (PCR) Not detected (NOT DETECT) 12/12/24 09:30 Parainfluenza 2 (PCR) Not detected (NOT DETECT) 12/12/24 09:30 Parainfluenza 3 (PCR) Not detected (NOT DETECT) 12/12/24 09:30 Parainfluenza 4 (PCR) Not detected (NOT DETECT) 12/12/24 09:30 RSV Type A (PCR) Not detected (NOT DETECT) 12/12/24 09:30 RSV Type B (PCR) Not detected (NOT DETECT) 12/12/24 09:30 Entero/Rhino (PCR) Not detected (NOT DETECT) 12/12/24 09:30 SARS-CoV-2 (PCR) Not detected (NOT DETECT) 12/12/24 09:30 Vitals Last Vital Signs Temp 97.6 F 12/15/24 08:00 Pulse 85 12/15/24 08:30 Resp 18 12/15/24 08:30 BP 158/80 12/15/24 08:00 Pulse Ox 95 12/15/24 08:30 O2 Del Method Room Air 12/15/24 08:30 O2 Flow Rate 2 12/14/24 11:19 FiO2 10 12/12/24 02:15 Discharge Plan Discharge Patient Disposition: Home Condition: Stable Prescriptions: New tamsulosin 0.4 mg Capsule 0.4 mg PO DAILY Qty: 30 0RF prednisone 10 mg tablet See Taper PO DIRECTED Qty: 42 0RF Taper: predniSONE 60-10 60 mg Daily for 2 Days and 0 Hour 50 mg Daily for 2 Days and 0 Hour 40 mg Daily for 2 Days and 0 Hour 30 mg Daily for 2 Days and 0 Hour 20 mg Daily for 2 Days and 0 Hour 10 mg Daily for 2 Days and 0 Hour Rx Instructions: see taper instructions levofloxacin 750 mg tablet 750 mg PO Q24H 5 Days Qty: 5 0RF amoxicillin-pot clavulanate 875-125 mg tablet 1 tab PO BID Qty: 10 0RF tiotropium bromide [Spiriva with HandiHaler] 18 mcg capsule, w/inhalation device 1 cap inhalation DAILY Qty: 30 0RF Rx Instructions: puncture 1 cap using device; one dose = 2 inhalations Continued rosuvastatin 20 mg tablet 20 mg PO DAILY Qty: 30 3RF albuterol sulfate 2.5 mg /3 mL (0.083 %) solution for nebulization 2.5 mg inhalation QID PRN (Reason: shortness of breath or wheezing) Qty: 75 0RF methotrexate sodium 2.5 mg tablet See Rx Instructions PO .week Qty: 150 0RF Rx Instructions: Split dose.. take 10 tabs on the same day once a week, take 5 tabs in the AM and 5 tabs in the PM folic acid 1 mg tablet 2 mg PO DAILY Qty: 180 2RF propranolol 20 mg Tablet 20 mg PO BID@09,21 vitamins A,C,H-pmvl-fyoovn 14,320-226-200 [id number]-[id number] Capsule 1 cap PO DAILY@09 Spiriva Respimat 2.5 mcg/actuation Mist 2 puff INHALATION DAILY@09 Eliquis 5 mg Tablet 5 mg PO BID@ valacyclovir 1 gram tablet 1,000 mg PO Q12H 10 Days Qty: 20 0RF prednisolone acetate 1 % drops,suspension 1 drp ophthalmic (eye) QID 7 Days Qty: 10 0RF docusate sodium 50 mg Capsule 50 mg PO BID PRN (Reason: Constipation) albuterol sulfate 90 mcg/actuation Hfa Aerosol Inhaler 2 puff INHALATION Q4H PRN (Reason: Shortness Of Breath Or Wheezing) ketoconazole 2 % Cream 1 applic TOPICAL BID Rx Instructions: Apply 1 application to red flacky areas bid prn . ketoconazole 1 % Shampoo 1 applic TOPICAL Q3D PRN (Reason: itchy scalp) Stiolto Respimat 2.5-2.5 mcg/actuation Mist 2 puff INHALATION DAILY Discontinued prednisone 20 mg tablet 60 mg PO DAILY Qty: 20 0RF Rx Instructions: 3 tabs (60 mg) x 3 days. 2 tabs (40 mg) x 3 days. 1 tab (20 mg) x 3 days. 1/2 tab (10 mg) x 4 days Discharge Orders: Discharge Order (Routine); Ordered 12/15/24 Ordered By: Familia Spence Other Ambulatory Orders: DME: Oxygen (Order) Location: None Selected Ordered By: Familia Spence Referrals: Ora Ibarra MD [Referring] - 12/28/24 11:30 am ([facility] preferrably. ) Aleksandr Lyle [Occupational Therapist] - 2 weeks (This is a scale agent. We have notified your physician's clinic of the need for a follow-up appointment to be scheduled. If you have not heard from them within the next 2 business days, please call them directly. SENT REFERRAL) Discharge Diet: Regular Discharge Activity: Resume usual activity and Increase activity as tolerated Patient Instructions: Ipratropium (By breathing), Prednisone (By mouth), Amoxicillin/Clavulanate Potassium (By mouth), Levofloxacin (By mouth) (Levaquin, Levaquin Leva-mason), Tamsulosin (By mouth), Viral Pneumonia (DC), Using Oxygen at Home (GEN), COPD Stoplight, Opioid Safety Discharge Attestations Time Spent in Discharge Care*: greater than 30 min Specific Discharge Activities: educating patient, educating and/or supporting family/caregiver, discussing with pcp/other providers, discussing with home health care case manager/social workers/dc planners, documenting/other paperwork and evaluating patient/reviewing data Status at Discharge: Cognitive status at discharge: cognitively intact , Behavioral status at discharge: cooperative , Functional status at discharge: independent ambulation , Overall status at discharge: patient is back to baseline Quality Metrics Clinical Quality Measures [ No reported AMI, CVA or VTE this stay] Coding Level of Care Code 57893 Total time (in minutes) for Discharge: 65 Diagnoses Lactic acidosis E87.20 Leukocytosis D72.829 Pneumonia J18.9 History of DVT of lower extremity Z86.718 Seropositive rheumatoid arthritis of multiple sites M05.79 COPD (chronic obstructive pulmonary disease) J44.9 History of lobectomy of lung Z90.2 Acute hypoxic respiratory failure J96.01 Azotemia R79.89 Lung cancer C34.90 Hypertension I10
== END 2024-12-15 12:21 | disposition home or self-care (01) | DRG 871 ==
LOC: ER 22:51 → ER IP 23:54 → ICU 12-12 00:16 → MEDSURG 12-13 10:27
PROVIDERS: Internal Medicine; Admitting Provider Internal Medicine; Emergency Provider Physician Assistant; Visit Provider Student in an Organized Health Care Education/Training Program
DX: A41.9 Sepsis, unspecified organism (principal); J18.9 Pneumonia, unspecified organism; J96.01 Acute respiratory failure with hypoxia; E87.20 Acidosis, unspecified; J44.0 Chronic obstructive pulmonary disease with (acute) lower respiratory infection; J44.1 Chronic obstructive pulmonary disease with (acute) exacerbation; B02.8 Zoster with other complications; C34.90 Malignant neoplasm of unspecified part of unspecified bronchus or lung; R65.20 Severe sepsis without septic shock; R79.89 Other specified abnormal findings of blood chemistry; J43.9 Emphysema, unspecified; I10 Essential (primary) hypertension; M05.79 Rheumatoid arthritis with rheumatoid factor of multiple sites without organ or systems involvement; Z86.718 Personal history of other venous thrombosis and embolism; Z11.52 Encounter for screening for COVID-19; Z90.2 Acquired absence of lung [part of]; Z86.73 Personal history of transient ischemic attack (TIA), and cerebral infarction without residual deficits; Z79.01 Long term (current) use of anticoagulants; Z79.899 Other long term (current) drug therapy; Z87.891 Personal history of nicotine dependence
CPT/HCPCS: 36415; 36600; 71045; 71046; 71260; 80048; 80051; 80053; 82330; 82805; 83605; 83735; 83880; 84100; 84145; 84484; 85025; 85610; 85730; 86140; 86403; 87486; 87581; 87633; 93005; 94640; 94760; 96365; 96367; 96374; 96375; 96376; 99285; J0692; J1171; J2020; J2270; J2543; J2919; J3370; J7030; J7050; J7626; J9999

== ENCOUNTER → 2025-02-05 10:11 | Outpatient (BNVA) | payer OTHER, SELFPAY | PROVIDERS: Visit Provider Nurse Practitioner Family | DX: L57.8 Other skin changes due to chronic exposure to nonionizing radiation (principal); L81.4 Other melanin hyperpigmentation; L82.1 Other seborrheic keratosis; D22.39 Melanocytic nevi of other parts of face; L57.0 Actinic keratosis | CPT/HCPCS: 17000; 99213 ==

== ENCOUNTER 2025-03-24 08:59 | Outpatient (CLI) | payer OTHER, SELFPAY ==
[2025-03-24 09:14] VITALS: PULSE 63; RESP 20; O2SAT 98
== END 2025-03-24 09:00 | disposition home or self-care (01) ==
LOC: RT 09:01
PROVIDERS: PCP Family Medicine; Visit Provider Chiropractor
DX: C34.90 Malignant neoplasm of unspecified part of unspecified bronchus or lung (principal)
CPT/HCPCS: 94060

== ENCOUNTER 2025-06-07 11:46 | Outpatient (CLI) | payer OTHER, SELFPAY ==
[2025-06-07 12:35] LABS: Hematocrit 41.0 % (37-53); Hemoglobin 13.00 g/dL (11.27-16.99); Mean Corpuscular HGB Conc 31.7 g/dL (30-55); Mean Corpuscular Hemoglobin 30.8 pg (27-33); Mean Corpuscular Volume 97.2 fl (82-101); Nucleated Red Blood Cells % 0 %; Platelet Count 261 10^3/cmm (157-399); Red Blood Count 4.22 10^6/uL (3.85-5.65); White Blood Count 6.36 10^3/uL (3.29-11.43)
--- NOTE | 2025-06-07 12:35 | XRR_ITS ---
PROCEDURE INFORMATION: Exam: XR Chest Exam date and time: 06/07/2025 12:58 PM Age: 79 years old Clinical indication: Other: Periumbilical skin; HX lung cx, radiation TECHNIQUE: Imaging protocol: Radiologic exam of the chest. Views: 2 views. COMPARISON: CT chest w con* [id number] 12/11/2024 10:02 PM FINDINGS: Lungs: Emphysematous change with mild chronic interstitial change or fibrosis and chronic right apical pleural thickening with prior chest radiograph exam of 12/11/2024. Mild increased interstitial markings lateral right lung base with today's exam in relation to prior exam could reflect mild increased fibrosis or small amount of interstitial infiltrate. No consolidation. Pleural spaces: No significant pleural effusion. No pneumothorax. Heart/Mediastinum: No cardiomegaly. Vasculature: Arteriosclerosis thoracic aorta. Bones/joints: Mild thoracic dextroscoliosis. Postsurgical change versus posttraumatic change lateral 7th rib on the right which was also seen with prior CT chest 12/11/2024. XR/XR chest 2V* [id number] IMPRESSION: 1. Emphysema and mild chronic interstitial lung change or fibrosis and chronic right apical pleural thickening. Previous CT chest noted prior right upper lobectomy changes. 2. Mild increased interstitial markings lateral right lung base with today's exam in relation to prior chest radiographic exam 12/11/2024. This could indicate mild increased fibrosis versus superimposed mild interstitial infiltrate. No consolidation.
== END 2025-06-07 11:47 | disposition home or self-care (01) ==
PROVIDERS: PCP Family Medicine; Visit Provider Nurse Practitioner Family
DX: R63.4 Abnormal weight loss (principal); L98.9 Disorder of the skin and subcutaneous tissue, unspecified; I70.0 Atherosclerosis of aorta; M41.84 Other forms of scoliosis, thoracic region; Z98.890 Other specified postprocedural states; M95.4 Acquired deformity of chest and rib; J43.9 Emphysema, unspecified; Z85.118 Personal history of other malignant neoplasm of bronchus and lung; J94.8 Other specified pleural conditions; Z87.898 Personal history of other specified conditions; J84.170 Interstitial lung disease with progressive fibrotic phenotype in diseases classified elsewhere
CPT/HCPCS: 36415; 71046; 85025

== ENCOUNTER → 2025-07-13 08:47 | Outpatient (BNVA) | payer OTHER, SELFPAY | PROVIDERS: PCP Family Medicine; Visit Provider Dermatology | DX: R63.4 Abnormal weight loss (principal); L57.0 Actinic keratosis; C44.01 Basal cell carcinoma of skin of lip; D48.5 Neoplasm of uncertain behavior of skin | CPT/HCPCS: 11102; 13152; 17311; 99213 ==